=== PATIENT | male | born 1945 | race Caucasian/White ===

== ENCOUNTER → 2019-09-26 11:14 | Outpatient (BNVA) | payer MEDICARE, OTHER, SELFPAY | PROVIDERS: Family Provider Family Medicine; PCP Family Medicine; Visit Provider Family Medicine | DX: E13.9 Other specified diabetes mellitus without complications (principal); I10 Essential (primary) hypertension; I48.91 Unspecified atrial fibrillation; L97.529 Non-pressure chronic ulcer of other part of left foot with unspecified severity | CPT/HCPCS: 80053; 83036; 85025 ==

== ENCOUNTER → 2019-12-19 11:47 | Outpatient (BNVA) | payer MEDICARE, OTHER, SELFPAY | PROVIDERS: Family Provider Family Medicine; PCP Family Medicine; Visit Provider Family Medicine | DX: D09.9 Carcinoma in situ, unspecified (principal) | CPT/HCPCS: 88304 ==

== ENCOUNTER → 2020-02-08 11:37 | Outpatient (BNVA) | payer MEDICARE, OTHER, SELFPAY | PROVIDERS: Family Provider Family Medicine; PCP Family Medicine; Visit Provider Family Medicine | DX: E13.9 Other specified diabetes mellitus without complications (principal); K59.01 Slow transit constipation; I87.2 Venous insufficiency (chronic) (peripheral); I48.19 Other persistent atrial fibrillation; I10 Essential (primary) hypertension | CPT/HCPCS: 80053; 83036; 85025 ==

== ENCOUNTER 2020-05-27 20:35 | Inpatient (IN) | payer MEDICARE, OTHER, SELFPAY ==
[2020-05-27] VITALS (12 sets, daily range): BP systolic 105–151; BP diastolic 59–90; PULSE 110–134; RESP 16–21; TEMP 36.9; O2SAT 93–100; BMI 33.9
--- NOTE | 2020-05-27 20:45 | CTR_ITS ---
PROCEDURE INFORMATION: Exam: CT Head Without Contrast Exam date and time: 05/27/2020 10:12 PM Age: 74 years old Clinical indication: Injury or trauma; Fall; Blunt trauma (contusions or hematomas); Additional info: Fall/xarelto TECHNIQUE: Imaging protocol: Computed tomography of the head without contrast. Radiation optimization: All CT scans at this facility use at least one of these dose optimization techniques: automated exposure control; mA and/or kV adjustment per patient size (includes targeted exams where dose is matched to clinical indication); or iterative reconstruction. COMPARISON: No relevant prior studies available. RADIATION DOSE METRICS: Total DLP (mGy-cm): 909.37 FINDINGS: Brain: Moderate diffuse white matter disease likely reflecting chronic microvascular ischemic changes. Cerebral ventricles: No ventriculomegaly. Bones/joints: Unremarkable. No acute fracture. Paranasal sinuses: Visualized sinuses are unremarkable. No fluid levels. Mastoid air cells: Visualized mastoid air cells are well aerated. Soft tissues: Unremarkable. CT/CT head wo con* [id number] IMPRESSION: Negative for intracranial hemorrhage or mass effect. Radiation Dose CTDIVOL = (mGy): DLP = 909.37 (mGy-cm)
--- NOTE | 2020-05-27 20:45 | XRR_ITS ---
PROCEDURE INFORMATION: Exam: XR Chest Exam date and time: 05/27/2020 9:01 PM Age: 74 years old Clinical indication: Shortness of breath; Additional info: Reduced breath sounds TECHNIQUE: Imaging protocol: XR of the chest Views: 1 view. COMPARISON: No relevant prior studies available. FINDINGS: Lungs: Pulmonary vascular congestion. Bibasilar atelectasis. Pleural spaces: Unremarkable. No pleural effusion. No pneumothorax. Heart/Mediastinum: Cardiomegaly. Bones/joints: Unremarkable. XR/XR chest 1V portable [id number] IMPRESSION: 1. Cardiomegaly. 2. Pulmonary vascular congestion. 3. Bibasilar atelectasis.
--- NOTE | 2020-05-27 20:50 | ECG_ITS ---
[facility] Test Date: 2020-05-27 Pat Name: Elia Parnell Department: Room: Gender: Male [employer]: : 1945 Requested By: Andrew Fajardo Order Number: [id number] Satnam MD: JOSIAH VITALE Measurements Intervals [place] Rate: 136 P: [place]: QRS: 63 QRSD: 82 T: 23 QT: 326 QTc: 492 Interpretive Statements ATRIAL FIBRILLATION WITH RAPID VENTRICULAR RESPONSE NONSPECIFIC ST & T-WAVE ABNORMALITY ABNORMAL RHYTHM ECG No previous ECG available for comparison Electronically Signed On 05-28-2020 19:59:48 COMB CAPPER by JOSIAH VITALE [id number]
--- NOTE | 2020-05-27 20:51 | CTR_ITS ---
PROCEDURE INFORMATION: Exam: CT Chest With Contrast; Diagnostic Exam date and time: 05/27/2020 10:12 PM Age: 74 years old Clinical indication: Injury or trauma; Fall; Generalized; Blunt trauma (contusions or hematomas); Additional info: Fall/ 3 days down. Chest bruising. Xarelto TECHNIQUE: Imaging protocol: Diagnostic computed tomography of the chest with contrast. Radiation optimization: All CT scans at this facility use at least one of these dose optimization techniques: automated exposure control; mA and/or kV adjustment per patient size (includes targeted exams where dose is matched to clinical indication); or iterative reconstruction. Contrast material: OMNI 300; Contrast volume: 95 ml; Contrast route: INTRAVENOUS (IV); COMPARISON: CR XR chest 1V portable [id number] 05/27/2020 9:06 PM RADIATION DOSE METRICS: Total DLP (mGy-cm): 2615.26 FINDINGS: Lungs: Unremarkable. No consolidation. No masses. Pleural spaces: Unremarkable. No pneumothorax. No pleural effusion. Heart: Coronary artery atherosclerotic calcifications. Aorta: Unremarkable. No aortic aneurysm. Lymph nodes: Unremarkable. No enlarged lymph nodes. Bones/joints: Unremarkable. No acute fracture. Soft tissues: Unremarkable. IMPRESSION: Negative for traumatic injury to the chest PROCEDURE INFORMATION: Exam: CT Abdomen And Pelvis With Contrast Exam date and time: 05/27/2020 10:12 PM Age: 74 years old Clinical indication: Injury or trauma; Fall; Generalized; Blunt trauma (contusions or hematomas); Additional info: Fall/ 3 days down. Chest bruising. Xarelto TECHNIQUE: Imaging protocol: Computed tomography of the abdomen and pelvis with contrast. Radiation optimization: All CT scans at this facility use at least one of these dose optimization techniques: automated exposure control; mA and/or kV adjustment per patient size (includes targeted exams where dose is matched to clinical indication); or iterative reconstruction. Contrast material: OMNI 300; Contrast volume: 95 ml; Contrast route: INTRAVENOUS (IV); COMPARISON: CR XR chest 1V portable [id number] 05/27/2020 9:06 PM RADIATION DOSE METRICS: Total DLP (mGy-cm): 2615.26 FINDINGS: Liver: Normal. No mass. Gallbladder and bile ducts: Normal. No calcified stones. No ductal dilation. Pancreas: Normal. No ductal dilation. Spleen: Normal. No splenomegaly. Adrenal glands: Normal. No mass. Kidneys and ureters: Several right kidney benign cysts, negative for follow up. Right kidney nonobstructing renal calyceal stone. Stomach and bowel: Unremarkable. No obstruction. No mucosal thickening. Appendix: No evidence of appendicitis. Intraperitoneal space: Unremarkable. No free air. No significant fluid collection. Vasculature: Unremarkable. No abdominal aortic aneurysm. Lymph nodes: Unremarkable. No enlarged lymph nodes. Urinary bladder: Unremarkable as visualized. Reproductive: Unremarkable as visualized. Bones/joints: Unremarkable. No acute fracture. Soft tissues: Unremarkable. CT/CT chest abd pel w con* IMPRESSION: 1. Negative for traumatic injury to the abdomen or pelvis. 2. Several right kidney benign cysts, negative for follow up. 3. Right kidney nonobstructing renal calyceal stone. COMMENTS: Consistent with the [place] [employer] [employer]'s Incidental Findings Committee white paper (J Am Jordan Radiol 2018): Any incidental renal lesion less than 1 cm or classified as too small to characterize, or any incidental cystic renal lesion characterized as simple-appearing, is likely benign. No follow-up imaging is recommended for these lesions per consensus recommendations based on imaging criteria. Radiation Dose CTDIVOL = (mGy): DLP = 2615.26~2615.26 (mGy-cm)
--- NOTE | 2020-05-27 20:51 | XRR_ITS ---
PROCEDURE INFORMATION: Exam: XR Left Knee Exam date and time: 05/27/2020 9:01 PM Age: 74 years old Clinical indication: Pain; Knee; Left; Additional info: Fall/pain TECHNIQUE: Imaging protocol: XR Left knee. Views: 3 views. COMPARISON: No relevant prior studies available. FINDINGS: Bones/joints: Moderate tricompartmental osteoarthritis of the knee. Soft tissues: Normal. Vasculature: Scattered vascular calcifications. XR/XR knee LT 3V* [id number] IMPRESSION: 1. Negative for fracture or dislocation 2. Scattered vascular calcifications. 3. Moderate tricompartmental osteoarthritis of the knee.
--- NOTE | 2020-05-27 20:51 | XRR_ITS ---
PROCEDURE INFORMATION: Exam: XR Right Knee Exam date and time: 05/27/2020 9:20 PM Age: 74 years old Clinical indication: Pain; Knee; Right; Additional info: Fall TECHNIQUE: Imaging protocol: XR Right knee. Views: 3 views. COMPARISON: No relevant prior studies available. FINDINGS: Bones/joints: Severe tricompartmental osteoarthritis of the knee. Soft tissues: Normal. Vasculature: Scattered vascular calcifications. XR/XR knee RT 3V* [id number] IMPRESSION: 1. Negative for fracture or dislocation. 2. Scattered vascular calcifications. 3. Severe tricompartmental osteoarthritis of the knee.
--- NOTE | 2020-05-27 20:54 | CTR_ITS ---
PROCEDURE INFORMATION: Exam: CT Cervical Spine Without Contrast Exam date and time: 05/27/2020 10:12 PM Age: 74 years old Clinical indication: Injury or trauma; Fall; Blunt trauma; Additional info: Fall/xarelto TECHNIQUE: Imaging protocol: Computed tomography images of the cervical spine without contrast. Radiation optimization: All CT scans at this facility use at least one of these dose optimization techniques: automated exposure control; mA and/or kV adjustment per patient size (includes targeted exams where dose is matched to clinical indication); or iterative reconstruction. COMPARISON: No relevant prior studies available. RADIATION DOSE METRICS: Total DLP (mGy-cm): 880.73 FINDINGS: Vertebrae: No acute fracture. Normal alignment. C2-C3: No significant disc protrusion. No severe spinal canal stenosis. No significant neural foraminal narrowing. C3-C4: No significant disc protrusion. No severe spinal canal stenosis. No significant neural foraminal narrowing. C4-C5: No significant disc protrusion. No severe spinal canal stenosis. No significant neural foraminal narrowing. C5-C6: No significant disc protrusion. No severe spinal canal stenosis. No significant neural foraminal narrowing. C6-C7: No significant disc protrusion. No severe spinal canal stenosis. No significant neural foraminal narrowing. C7-T1: No significant disc protrusion. No severe spinal canal stenosis. No significant neural foraminal narrowing. Soft tissues: Unremarkable. Lungs: Lung apices are normal. Other findings: Degenerative disc space narrowing throughout the cervical spine. CT/CT cervical spin wo con* [id number] IMPRESSION: 1. Negative for fracture or dislocation. 2. Degenerative disc space narrowing throughout the cervical spine. Radiation Dose CTDIVOL = (mGy): DLP = 880.73 (mGy-cm)
--- NOTE | 2020-05-27 21:03 | W.ED.FALL ---
HPI - Fall General: Chief Complaint: Fall Stated Complaint: FALL/ AFIB W/RVR Time Seen by Provider: 05/27/20 20:36 History of Present Illness: HPI Narrative: The patient is a 74-year-old male with past medical history diabetes and atrial fibrillation on Xarelto. He comes to the ER after he fell 2 days ago in his basement rolling down the stairs. He has bruising to his chest, belly, and complains of severe hip and pelvic pain bilaterally. He was unable to get up off the ground and yelled for help but no one answered. Finally today someone came to check on him after 2 to 3 days of being on the ground and called an ambulance. He has eaten or drank nothing and was in A. fib RVR with a rate of 180 noted by ambulance. They gave him 30 mg diltiazem with noted hypotension and reduction in rate. On arrival to the ER his rate is in the 130s to 120s with a blood pressure of 129/59. Associated symptoms-after fall: Reports abdominal pain, chest pain, headache(s) and neck pain; Denies confusion or difficulty walking Review of Systems General: Reports: 10 or more systems reviewed and unremarkable except in HPI and below Const: Denies: fatigue Eyes: Denies: change in vision, blurry vision or eye redness ENMT: Denies: throat pain, swelling of lips/tongue, ear or mastoid pain or nasal congestion Card: Reports: chest pain; Denies: palpitations, irregular heart rhythm, edema, dyspnea on exertion or orthopnea Resp: Denies: dyspnea, productive cough or non-productive cough GI: Reports: abdominal pain; Denies: diarrhea or GI cramping : Denies: flank pain, urinary frequency or urinary urgency Musc: Reports: neck pain, back pain, extremity pain, joint pain and muscle weakness; Denies: joint redness or limited range of motion Skin/Breast: Denies: rash, pruritus, erythema, skin pain or skin tenderness Neuro: Reports: headache(s); Denies: numbness in extremities, weakness in extremities, sensory changes, difficulty walking, dizziness, confusion or Slurred speech present Psych: Denies: anxiety or depression Endo: Denies: polyuria All/Imm: Denies: urticaria, throat swelling or tongue swelling PFS ED PFSH: Medical History (Updated 05/27/20 @ 23:48 by Andrew Fajardo MD) Anticoagulation adequate with anticoagulant therapy Anxiety and depression Arthritis Atrial fibrillation Diabetes Diabetes 1.5, managed as type 2 Enrolled in chronic care management Essential hypertension Hx of melanoma of skin Hypotension Obesity Plantar ulcer of left foot Rhabdomyolysis Squamous cell carcinoma, face Venous insufficiency Family History Mother Diabetes CAD (coronary artery disease) Social History Smoking and tobacco status: never smoked Alcohol intake: never Marital status: Physical Exam Narrative: EXAM NARRATIVE: The patient is in A. fib with RVR rate in the 130s. He has multiple contusions across his chest with some bruising as well and abrasions scattered on the chest and abdomen. He is tender in those areas. He also has abrasions and bruises to bilateral kneecaps. Smells of urine and feces. Const: COMMON NORMALS: patient oriented x3, no limitations, alert and well nourished GENERAL APPEARANCE: cooperative, well developed, in distress, anxious and ill appearing NUTRITIONAL APPEARANCE: obese ORIENTATION/CONSCIOUSNESS: Yes awake, Yes oriented to person, Yes oriented to place and Yes oriented to time HENMT: COMMON NORMALS: normocephalic, external ears normal and Normal external nose present HEAD & SCALP: normal to inspection and normocephalic NOSE: Normal external nose present EXTERNAL EAR: Yes external ears normal MOUTH: Normal oral and palatal mucosa present THROAT: posterior oropharynx normal Eye: COMMON NORMALS: Equal, round and reactive pupils present and EOMs intact bilaterally GENERAL EYE: appearance normal, both eyes and all related structures PUPIL: Yes Equal, round and reactive pupils present Neck/C-Spine: COMMON NORMALS: full ROM, no lymphadenopathy, no meningeal signs and no JVD GENERAL: Yes normal visual inspection Lymph: LYMPHATIC: no lymphadenopathy noted Chest: OTHER: Scattered contusions, bruises, and abrasions across the chest wall. He is tender in those areas. Resp: COMMON NORMALS: normal respiratory effort, No retractions, No use of accessory muscles, clear to auscultation bilaterally and percussion normal EFFORT & INSPECTION: Yes able to speak in complete sentences AUSCULTATION: clear to auscultation bilaterally PERCUSSION: percussion normal Cardio: COMMON NORMALS: no JVD, S1 normal heart sound present, S2 normal heart sound present and Peripheral pulses 2+ throughout RATE: tachycardic RHYTHM: abnormal rhythm irregularly irregular HEART SOUNDS: S1 normal heart sound present and S2 normal heart sound present PERIPHERAL PULSES: Peripheral pulses 2+ throughout OTHER: A. fib RVR with rate in the 130s. GI: COMMON NORMALS: Soft to palpation and no masses INSPECTION: Yes normal to inspection PALPATION: Yes Soft to palpation OTHER: Scattered contusions, bruising, and abrasions to the abdomen with associated tenderness. : COMMON NORMALS: Yes no CVA tenderness BLADDER/KIDNEY EXAM: Yes no CVA tenderness Back/Pelvis: COMMON NORMALS: no CVA tenderness, thoracic and lumbar spine normal to inspection, no thoracic nor lumbar tenderness and thoraco-lumbar ROM normal Extremity: COMMON NORMALS: normal to inspection, full ROM, capillary refill normal, no joint enlargement and no pedal edema NARRATIVE EXTREMITY EXAM: Bilateral knees with contusions, and abrasions over the patellas bilaterally. Associated tenderness. Major ligaments intact. GENERAL: Yes normal exam except as noted Neuro: COMMON NORMALS: patient oriented x3, CN's II-XII intact bilaterally, moves all extremities, no focal motor deficits, no sensory deficits noted and gait normal SENSORIUM/ORIENTATION: Yes alert, Yes oriented to person, Yes oriented to place and Yes oriented to time MENINGEAL SIGNS: Yes no meningeal signs OTHER: He is generally weak in all extremities. No focal weakness. Psych: COMMON NORMALS: mental status grossly normal, Normal thought process present, cooperative, normal affect and speech normal APPEARANCE: Yes unkempt ATTITUDE: Yes calm SPEECH: Yes normal speech MOOD & AFFECT: Yes anxious THOUGHT PROCESS: Normal thought process present Skin: COMMON NORMALS: no rashes or lesions noted GENERAL SKIN EXAM: no rashes or lesions noted Course Vital Signs: Vital signs: Vital Signs Temperature 98.4 F 05/27/20 20:40 Pulse Rate 126 H 05/27/20 23:00 Respiratory Rate 19 H 05/27/20 23:00 Blood Pressure 137/90 05/27/20 23:00 Pulse Oximetry 94 05/27/20 23:00 MDM - Fall MDM Narrative: Medical decision making narrative: The patient came to the ER in A. fib RVR after a fall and not eating or drinking for 2 to 3 days. He was given a 30 mg IV bolus by EMS prior to arrival his rate was in the 160s. On arrival it is the in the 130s with a normal blood pressure. He was given IV fluids and started on a diltiazem drip. Imaging was grossly negative for acute fractures or hemorrhages. He continued to have heart rate in the 1 teens to 120s and was admitted to the ICU. Discussed with Dr. Arellano who accepts his care. Lab Data: Labs: Lab Results 05/27/20 05/27/20 05/27/20 Range/Units 21:08 21:08 21:08 WBC 9.4 (4.0-10.0) 10^3/ uL RBC 4.70 (4.1-5.3) 10^6/u L Hgb 14.4 (11.7-16.6) g/dL Hct 42.8 (42.0-52.0) % MCV 91.1 (80-94) fL MCH 30.6 (28.0-34.0) pg MCHC 33.6 (30.0-36.0) g/dL RDW 13.2 (12.1-15.1) % Plt Count 182 (130-400) 10^3/c mm MPV 10.4 (7.4-10.4) fL Neut % (Auto) 81.0 % Lymph % (Auto) 9.1 % [place] % (Auto) 9.3 % Eos % (Auto) 0.1 % Baso % (Auto) 0.2 % Neut # (Auto) 7.63 (1.8-7.7) 10^3/u L Lymph # (Auto) 0.9 (0.8-4.8) 10^3/u L [place] # (Auto) 0.9 (0.2-0.9) 10^3/u L Eos # (Auto) 0.0 (0.0-0.8) 10^3/u L Baso # (Auto) 0.0 (0.0-0.1) 10^3/u L Nucleated RBC % (a uto) 0 % Nucleated RBCs # 0.0 /100WBC Sodium 139 (136-145) mmol/L Potassium 4.1 (3.5-5.1) mmol/L Chloride 102 (98-107) mmol/L Carbon Dioxide 22 (22-29) mmol/L Anion Gap 19.1 H (5-19) BUN 24 H (8-23) mg/dL Creatinine 0.6 L (0.7-1.2) mg/dL GFR Calculation Not Reportable Glucose 133 H (65-115) mg/dL Calculated Osmolal ity 294 (285-295) mOsm/k g Lactate 2.6 H (0.5-2.2) mmol/L Calcium 8.7 (8.5-10.5) mg/dL Total Bilirubin 5.0 H (0.15-1.2) mg/dL AST 185 H (0-40) U/L ALT 75 H (0-41) U/L Alkaline Phosphata se 56 (40-130) IU/L Troponin T Baselin e (0-15) ng/L NT-Pro-B Natriuret Pep 657 H (0-450) pg/mL Total Protein 6.8 (6.6-8.7) g/dL Albumin 3.3 L (3.5-5.2) g/dL Globulin 3.5 (1.3-4.6) g/dL 05/27/20 Range/Units 21:08 WBC (4.0-10.0) 10^3/ uL RBC (4.1-5.3) 10^6/u L Hgb (11.7-16.6) g/dL Hct (42.0-52.0) % MCV (80-94) fL MCH (28.0-34.0) pg MCHC (30.0-36.0) g/dL RDW (12.1-15.1) % Plt Count (130-400) 10^3/c mm MPV (7.4-10.4) fL Neut % (Auto) % Lymph % (Auto) % [place] % (Auto) % Eos % (Auto) % Baso % (Auto) % Neut # (Auto) (1.8-7.7) 10^3/u L Lymph # (Auto) (0.8-4.8) 10^3/u L [place] # (Auto) (0.2-0.9) 10^3/u L Eos # (Auto) (0.0-0.8) 10^3/u L Baso # (Auto) (0.0-0.1) 10^3/u L Nucleated RBC % (a uto) % Nucleated RBCs # /100WBC Sodium (136-145) mmol/L Potassium (3.5-5.1) mmol/L Chloride (98-107) mmol/L Carbon Dioxide (22-29) mmol/L Anion Gap (5-19) BUN (8-23) mg/dL Creatinine (0.7-1.2) mg/dL GFR Calculation Glucose (65-115) mg/dL Calculated Osmolal ity (285-295) mOsm/k g Lactate (0.5-2.2) mmol/L Calcium (8.5-10.5) mg/dL Total Bilirubin (0.15-1.2) mg/dL AST (0-40) U/L ALT (0-41) U/L Alkaline Phosphata se (40-130) IU/L Troponin T Baselin e 31 H (0-15) ng/L NT-Pro-B Natriuret Pep (0-450) pg/mL Total Protein (6.6-8.7) g/dL Albumin (3.5-5.2) g/dL Globulin (1.3-4.6) g/dL Discharge Plan Discharge Patient Disposition: Admitted As Inpatient Clinical Impression: Atrial fibrillation with rapid ventricular response, Acute dehydration, General weakness Condition: Stable Coding Level of Care Code ED Tax Attorney for Loretta Jason
[2020-05-27 21:31] LABS: Basophils % 0.2 %; Eosinophils % 0.1 %; Hematocrit 42.8 % (42.0-52.0); Hemoglobin 14.4 g/dL (11.7-16.6); Lymphocytes # 0.9 10^3/uL (0.8-4.8); Lymphocytes % 9.1 %; Mean Corpuscular HGB Conc 33.6 g/dL (30.0-36.0); Mean Corpuscular Hemoglobin 30.6 pg (28.0-34.0); Mean Corpuscular Volume 91.1 fL (80-94); Mean Platelet Volume 10.4 fL (7.4-10.4); Monocytes # 0.9 10^3/uL (0.2-0.9); Monocytes % 9.3 %; Neutrophils # 7.63 10^3/uL (1.8-7.7); Nucleated Red Blood Cells % 0 %; Platelet Count 182 10^3/cmm (130-400); Red Cell Distribution Width 13.2 % (12.1-15.1); White Blood Count 9.4 10^3/uL (4.0-10.0)
[2020-05-27] MEDS: sodium chloride 0.9% 1,000 ML 999 ML IV (21:37)
[2020-05-27 22:02] LABS: Troponin(5th) Baseline 31 ng/L (0-15)
[2020-05-27 22:10] LABS: Alanine Aminotransferase 75 U/L (0-41); Albumin Level 3.3 g/dL (3.5-5.2); Alkaline Phosphatase 56 IU/L (40-130); Anion Gap 19.1 (5-19); Aspartate Amino Transferase 185 U/L (0-40); Blood Urea Nitrogen 24 mg/dL (8-23); Calcium 8.7 mg/dL (8.5-10.5); Carbon Dioxide 22 mmol/L (22-29); Chloride 102 mmol/L (98-107); Globulin 3.5 g/dL (1.3-4.6); Glucose 133 mg/dL (65-115); NT Pro B Type Natriuretic Pept 657 pg/mL (0-450); Osmolality Calculated 294 mOsm/kg (285-295); Potassium 4.1 mmol/L (3.5-5.1); Sodium 139 mmol/L (136-145); Total Protein 6.8 g/dL (6.6-8.7)
[2020-05-27 22:19] LABS: Lactate (Lactic Acid level) 2.6 mmol/L (0.5-2.2)
[2020-05-27] MEDS: iohexol 300 mg/mL 100 mL Btl IV (22:30)
--- NOTE | 2020-05-27 22:51 | ECG_ITS ---
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: : 1945 Requested By: Andrew Fajardo Order Number: [id number] Satnam MD: JOSIAH VITALE Measurements Intervals [place] Rate: 132 P: [place]: QRS: 63 QRSD: 85 T: 0 QT: 303 QTc: 449 Interpretive Statements ATRIAL FIBRILLATION WITH RAPID VENTRICULAR RESPONSE ST DEVIATION AND MODERATE T-WAVE ABNORMALITY, CONSIDER LATERAL ISCHEMIA [-0.1+ mV T WAVE IN I/aVL/V5/V6] Compared to ECG 05/27/2020 21:00:00 Possible ischemia now present T-wave abnormality still present Electronically Signed On 05-28-2020 20:03:07 RN MATERNITY by JOSIAH VITALE [email or web address] [id number]
--- NOTE | 2020-05-27 23:40 | P.HP_ITS ---
Providers/Chief Complaint Primary Care Provider: Tayo Kirkland MD Chief Complaint: FALL/ AFIB W/RVR History of Present Illness Elia Parnell is a 74 year old male who has history of afib, chronic anticoagulation, came in today after falling at home. Patient is stating that he went to PCP on Wednesday and slipped from his stairs in his basement on Wednesday and stayed there until Wednesday night, he screamed and yelled but no one could hea r. His friend checked on him tonight and found him on the floor soiled in feces and urine and sent him to the hospital. When EMS arrived his heart rate was in 160s A. fib RVR Cardizem 30 mg IV push was given. In the ER he was started on Cardizem drip for A. fib RVR he was also given 2 L normal saline fluid bolus. He was scanned from head to coccyx, no fractures were identified, normal CBC, lactic 2.6 secondary to dehydration, no signs of sepsis, patient was awake alert oriented x3. Patient did not endorse any chest pain, shortness of breath, orthopnea, PND, fever however he thinks he slipped from his stairs and did not experience any seizure or syncopal event. EKG showing A. fib RVR with slight ST depression V4 V5 otherwise no other infarctive or ischemic changes identified, patient is chest pain-free. No significant delta troponin. I have requested CPK Review of Systems Const: Reports: body aches, fatigue and malaise; Denies: fever(s) or chills Eyes: Denies: change in vision ENMT: Denies: throat pain Card: Reports: chest pain (Laceration around sternum) Resp: Denies: dyspnea GI: Denies: abdominal pain : Denies: flank pain Musc: Denies: neck pain Skin/Breast: Denies: rash Neuro: Reports: confusion; Denies: headache(s) Psych: Denies: anxiety Endo: Denies: polyuria Luis Alberto/Lymph: Denies: easy bruising All/Imm: Denies: urticaria Medications/Allergies Home Medications Medication Instructions Recorded Confirmed Last Taken Type ibuprofen 200 mg tablet 200 mg PO Q6H PRN 04/06/19 04/25/20 Unknown History metformin 500 mg tablet 500 mg PO BID 90 Days #180 tab 05/30/19 04/25/20 Unknown Rx rivaroxaban 20 mg tablet 20 mg PO DAILY #30 tab 10/21/19 04/25/20 Unknown Rx docusate sodium 100 mg capsule 100 mg PO BID #60 cap 02/08/20 04/25/20 Unknown Rx bisoprolol fumarate 5 mg tablet 5 mg PO BID 90 Days #180 tab 03/14/20 04/25/20 Unknown Rx furosemide 40 mg tablet 40 mg PO DAILY 60 Days #60 tab 04/18/20 04/25/20 Unknown Rx Allergies Allergy/AdvReac Type Severity Reaction Status Date / Time Penicillins Allergy Severe ALGY-Bliste Verified 05/27/20 20:54 r PFSH Acute PFSH: Medical History Anticoagulation adequate with anticoagulant therapy Anxiety and depression Arthritis Atrial fibrillation Diabetes Diabetes 1.5, managed as type 2 Enrolled in chronic care management Essential hypertension Hx of melanoma of skin Hypotension Obesity Plantar ulcer of left foot Rhabdomyolysis Squamous cell carcinoma, face Venous insufficiency Surgical History (Updated 05/28/20 @ 00:14 by Kevin Arellano MD) No pertinent past surgical history Family History Mother Diabetes CAD (coronary artery disease) Social History (Updated 05/28/20 @ 00:18 by Kevin Arellano MD) Smoking and tobacco status: light tobacco smoker smokeless tobacco Smokeless tobacco user: chewing tobacco Alcohol intake: never Marital status: Vitals/I&O/Wt Last Vital Signs Temp 98.4 F 05/27/20 20:40 Pulse 126 H 05/27/20 23:00 Resp 19 H 05/27/20 23:00 BP 137/90 05/27/20 23:00 Pulse Ox 94 05/27/20 23:00 Weight last 48 hrs Weight 113.398 kg Physical Exam Narrative: EXAM NARRATIVE: Pleasant elderly male, clinically looks dehydrated Multiple lacerations and bruises all over his body, no active bleeding or hematoma Bruise right frontal head area, bilateral elbows, lower extremities No signs of cyanosis gangrene or ischemia S1, S2 variable A. fib RVR no murmur appreciated No signs of heart failure Abdomen distended, ventral hernia no active pain nontender abdomen, bowel sound present No acute respiratory distress Currently saturating well on room air Appropriate mood and affect Seems to have good insight No active joint swelling however multiple bruises and hyperemia noted on the knee and elbow joints Data : 05/27/20 21:08 05/27/20 21:08 A&P Assessment and plan (1) Atrial fibrillation: A. fib with acute RVR Xarelto, currently on Cardizem drip Patient is denying syncopal event however he is attributing his fall to losing balance on his basement stairs He lives alone since his Status: Acute Qualifiers: Atrial fibrillation type: persistent (not longstanding) Qualified Code(s): I48.19 - Other persistent atrial fibrillation (2) Fall: Mechanical fall Check CPK, no acute fractures Status: Acute (3) Dehydration: He has not been able to eat or drink in last 48 hours, received 2 L normal saline bolus in the ER lactic acidemia is most likely due to dehydration no signs of sepsis, anticipate improvement with fluid resuscitation Status: Acute (4) General weakness: Physical therapy evaluation, check TSH, Status: Acute Additional A&P Information Lives alone Physical therapy evaluation Consistent carb diet with sliding scale DVT prophylaxis not indicated secondary to Xarelto use Goals of care discussed with the patient: Full code His daughter lives in [place], kindly update the family in the morning I have not called her past midnight Attestations Medical Necessity Statement*: Anticipating discharge in less than 48 hours physical therapy evaluation will decide his disposition currently need Cardizem drip and fluid hydration Time Spent in Patient Care: (>than 50% of time spent in counselling and/or direct pt care on unit) . 50mins Coding Level of Care Code Acute Patent Counsel for [facility] Fwd Diagnoses Atrial fibrillation I48.19 Atrial fibrillation type: persistent (not longstanding) Fall W19.XXXA Dehydration E86.0 General weakness R53.1
[2020-05-28] VITALS (150 sets, daily range): BP systolic 97–135; BP diastolic 61–106; PULSE 80–155; RESP 0–29; TEMP 36.7–37; O2SAT 85–97
[2020-05-28 00:03] LABS: Troponin 5 2HR 32.48 ng/L (0-15); Troponin 5 2HR Delta 1.48 ABS# (0-10)
[2020-05-28 00:19] LABS: Creatine Phosphokinase 4409 U/L (39-308)
--- NOTE | 2020-05-28 02:51 | ECG_ITS ---
[facility] Test Date: 2020-05-28 Pat Name: Elia Parnell Department: Room: ICU06 Gender: Male Director Of Customer Acquisition: : 1945 Requested By: Andrew Fajardo Order Number: [id number] Satnam MD: JOSIAH VITALE Measurements Intervals [place] Rate: 118 P: VT: QRS: 48 QRSD: 89 T: -74 QT: 349 QTc: 490 Interpretive Statements ATRIAL FIBRILLATION WITH RAPID VENTRICULAR RESPONSE ST DEVIATION AND MODERATE T-WAVE ABNORMALITY, CONSIDER ANTEROLATERAL ISCHEMIA [-0.1+ mV T WAVE IN V3-V6] ST DEVIATION AND MODERATE T-WAVE ABNORMALITY, CONSIDER INFERIOR ISCHEMIA [-0.1+ mV T WAVE IN II/aVF] Compared to ECG 05/27/2020 22:50:26 No significant changes Electronically Signed On 05-28-2020 20:01:35 BUILDING SUPERINTENDENT by JOSIAH VITALE [id number]
--- NOTE | 2020-05-28 02:55 | PC.NURSE ---
Patient arrived to ICU from ED at 0245.
[2020-05-28] MEDS: sodium chloride 0.9% 1,000 ML 75 ML IV (02:59)
[2020-05-28 03:32] LABS: Magnesium 2.1 mg/dL (1.7-2.3)
[2020-05-28 03:36] LABS: Troponin 5 6HR 38.44 ng/L (0-15); Troponin 5 6HR Delta 7.44 ng/L (0-12)
[2020-05-28 03:44] LABS: Anion Gap 16.1 (5-19); Blood Urea Nitrogen 25 mg/dL (8-23); Calcium 8.4 mg/dL (8.5-10.5); Carbon Dioxide 25 mmol/L (22-29); Chloride 102 mmol/L (98-107); Glucose 120 mg/dL (65-115); Osmolality Calculated 294 mOsm/kg (285-295); Potassium 4.1 mmol/L (3.5-5.1); Sodium 139 mmol/L (136-145); Thyroid Stimulating Hormone 5.18 uIU/mL (0.27-4.20)
[2020-05-28 07:31] LABS: Glucose Point of Care 125 mg/dL (70-110)
[2020-05-28] MEDS: rivaroxaban 10 mg Tablet 20 MG PO (08:59)
[2020-05-28] MEDS: docusate sodium 100 mg Capsule PO ×2 (08:59→17:09)
--- NOTE | 2020-05-28 09:39 | P.PN_ITS ---
Subjective Subjective: Interval history: Patient was seen and examined this morning. He was complaining of pain at the injury site in both lower extremity.He do told that he had a mechanical fall and was left unattended for close to 2 days. Currently in the morning he is not complaining of any chest pain, sob,nausea,vomiting,cough. He continues to be in A.fib with RVR and on cardizem drip. His other vitals and labs have been reviewed. Medications: Reviewed: Yes Vitals/I&O/Wt Last Vital Signs Temp 98.0 F 05/28/20 02:50 Pulse 105 H 05/28/20 06:10 Resp 21 H 05/28/20 06:10 BP 99/70 05/28/20 06:10 Pulse Ox 91 05/28/20 06:10 05/27/20 05/28/20 05/28/20 22:59 06:59 14:59 Intake Total 1219.25 / 1219.25 Output Total 0 / 0 Balance 1219.25 / 1219.25 Weight last 48 hrs Weight 114.305 kg Weight 114.362 kg Weight 113.398 kg Physical Exam Const: COMMON NORMALS: patient oriented x3 HENMT: COMMON NORMALS: normocephalic and atraumatic HEAD & SCALP: normocephalic and atraumatic Chest: CHEST: Yes Symmetrical chest wall rise Resp: COMMON NORMALS: normal respiratory effort and clear to auscultation bilaterally EFFORT & INSPECTION: Yes symmetric chest movement AUSCUL TATION: clear to auscultation bilaterally Cardio: OTHER: S1 S2 is of Variable Intensity,irregularly irregular rhythm. NO MRG GI: COMMON NORMALS: Normal to inspection, nondistended, normoactive bowel sounds present, Soft to palpation, non-tender, No hepatosplenomegaly present and no masses AUSCULTATION: Yes normoactive bowel sounds PALPATION: Yes Soft to palpation and Yes No hepatosplenomegaly present RECTAL EXAM: Yes deferred Extremity: COMMON NORMALS: no clubbing, cyanosis or edema and no pedal edema Neuro: COMMON NORMALS: patient oriented x3 Data : 05/27/20 21:08 05/28/20 02:52 A&P Assessment and plan (1) Atrial fibrillation: A. fib with acute RVR Currently on Cardizem drip Cardizem 30 mg po q6 h Daily Xarelto 20 mg po daily Status: Acute Qualifiers: Atrial fibrillation type: persistent (not longstanding) Qualified Code(s): I48.19 - Other persistent atrial fibrillation (2) Fall: Mechanical fall no acute fractures Status: Acute (3) Elevated troponin: Likely TYPE II M.I 2/2 to demand ischemia, from A. fib with RVR. Currently he is denying any chest pain shortness of breath. 2D echo Status: Acute (4) Elevated CPK: Likely 2/2 to dehydration and fall. CPK : 4409. Continue IV hydration NS @150CC/H Trend CPK Monitor kidney function Status: Acute (5) Dehydration: He has not been able to eat or drink in last 48 hours, received 2 L normal saline bolus in the ER lactic acidemia is most likely due to dehydration no signs of sepsis, anticipate improvement with fluid resuscitation Status: Acute (6) General weakness: Physical therapy evaluation Status: Acute (7) Diabetes: LDSSI FSG HbA1c Status: Acute Additional A&P Information DVT: On Xarelto Code Status: Full code Disposition : Lives alone.Will return Home. His daughter lives in [place] Attestations Medical Necessity Statement*: Patient needs to be in hospital for the management of A.Fib with RVR, elevated CPK, Elevated troponin. Coding Level of Care Code Acute Woodwork Salvage Inspector for [facility] Fwd Exam Detailed Diagnoses Atrial fibrillation I48.19 Atrial fibrillation type: persistent (not longstanding) Fall W19.XXXA Elevated troponin R77.8 Elevated CPK R74.8 Dehydration E86.0 General weakness R53.1 Diabetes E11.9
--- NOTE | 2020-05-28 09:40 | PC.CHAP ---
Pastoral Care Encounter/Spiritual Assessment Type of Contact [] Declined rn urgent care visit [] Patient/Family/Request visit [] Outpatient visit [] Follow-up visit [] Physician referral [] Code/Alert [x] Routine visit [] Staff referral [] Actively dying [] Patient sleeping [] Family support [] [] Out of room [] Palliative care [] [] Receiving care in room [] Pre-surgical visit [] Trauma [] Long length of stay [x] ICU visit [] Other: Relational/Emotional Strength [] Patient feels connected with others/family/visitors/staff [] Distress [] Loneliness/isolation [] Abandonment Spirituality of Patient [x] Person of Grisel [] Attends Baptism of their Grisel [] Believes in Prayer [] Reads Bible or Quaker materials [] There are Spiritual issues to be addressed Digital X Ray Service Engineer Interventions [x] Prayer [x] Active listening [x] Non-anxious presence [x] Spiritual/emotional support [] Crisis/trauma care [] Spiritual counseling [] Bereavement support [] Provided bereavement packet [] Provided Bible/devotional materials [] Provided toy/stuffed animal, coloring book to patient or family member [] Provided Communion [] Anointing/Shelby [] Salvation [x] Completed spiritual assessment [] Other: Impact on Illness or Injury [] Angry [] Fearful [] Anxious [] Often cries [] Exhaustion [] Unable to work [] Unable to attend yarsani [] Unable to walk/stand [] Unable to read [] Unable to drive [] Unable to eat/drink [] Unable to sleep [] Unable to be with family [] Patient intubated [] Other: Summary patient a little anxious after speaking to doctor... fall may has possibly caused an issue with heart... patient missed his heart visit (6 mo) Time spent with patient 10 min
--- NOTE | 2020-05-28 10:13 | PC.NURSE ---
New bag of cardizem was hung at 0800 running at 10 ml/hr and not started in MAY until 1009.
[2020-05-28 11:46] LABS: Glucose Point of Care 179 mg/dL (70-110)
--- NOTE | 2020-05-28 15:11 | PC.NURSE ---
Patient was transferred to CSU at 1500. All of patients belongings were taken to CSU and placed in the closet.
[2020-05-28] MEDS: dilTIAZem 30 mg Tablet PO ×2 (15:49→20:32)
[2020-05-28] MEDS: sodium chloride 0.9% 1,000 ML 150 ML IV (16:23)
[2020-05-28 16:44] LABS: Glucose Point of Care 156 mg/dL (70-110)
[2020-05-28 20:40] LABS: Glucose Point of Care 180 mg/dL (70-110)
--- NOTE | 2020-05-28 22:17 | PM.CONSULT ---
Providers/Reason For Consult Consulting Physican/Specialty*: Ham Sifuentes MD/Cardiology Reason for Consult*: Afib with RVR Requesting Physcian: Teddy Joyner MD Attending Physician: Teddy Joyner MD Primary Care Provider: Tayo Kirkland MD History of Present Illness History of Present Illness 74 year old male who has history of afib, chronic anticoagulation came to hospital after he had a fall at home and was found about 1-2 days later by his friend. He says he slipped and fell in his basement, called for help but no one could hear him. When EMS arrived, he was in afib with RVR with heart rates in 160s. His CPK was also markedly elevated. Patient denies any complaints of chest pain or shortness of breath. His heart rate is still elevated and is in 100-110s. Currently on cardizem gtt. Review of Systems Const: Reports: body aches, fatigue and malaise; Denies: fever(s) or chills Eyes: Denies: change in vision ENMT: Denies: throat pain Card: Reports: chest pain (Laceration around sternum) Resp: Denies: dyspnea GI: Denies: abdominal pain : Denies: flank pain Musc: Denies: neck pain Skin/Breast: Denies: rash Neuro: Reports: confusion; Denies: headache(s) Psych: Denies: anxiety Endo: Denies: polyuria Luis Alberto/Lymph: Denies: easy bruising All/Imm: Denies: urticaria Meds/Allergies Home Medications and Allergies Home Medications Medication Instructions Recorded Confirmed Last Taken Type ibuprofen 200 mg tablet 200 mg PO Q6H PRN 04/06/19 05/28/20 Unknown History metformin 500 mg tablet 500 mg PO BID 90 Days #180 tab 05/30/19 05/28/20 Unknown Rx rivaroxaban 20 mg tablet 20 mg PO DAILY #30 tab 10/21/19 05/28/20 05/28/20 Rx docusate sodium 100 mg capsule 100 mg PO BID #60 cap 02/08/20 05/28/20 05/28/20 Rx bisoprolol fumarate 5 mg tablet 5 mg PO BID 90 Days #180 tab 03/14/20 05/28/20 Unknown Rx furosemide 40 mg tablet 40 mg PO DAILY 60 Days #60 tab 04/18/20 05/28/20 Unknown Rx Allergies Allergy/AdvReac Type Severity Reaction Status Date / Time Penicillins Allergy Severe ALGY-Bliste Verified 05/27/20 20:54 r Current Medications Current Medications Generic Name Dose Route Start Last Admin Trade Name Shlomoq PRN Reason Stop Dose Admin Diltiazem HCl 30 mg 05/28/20 14:00 05/28/20 20:32 Diltiazem 30 Mg Tablet PO 30 mg Q6H KRYSTINA Administration Docusate Sodium 100 mg 05/28/20 09:00 05/28/20 17:09 Docusate Sodium 100 Mg Capsule PO 100 mg BID KRYSTINA Administration Diltiazem HCl 125 mg/ Sodium 125 mls @ 5 mls/hr 05/27/20 21:15 05/28/20 20:53 Chloride IV Infused .Q24H KRYSTINA Infusion 5 MG/HR Sodium Chloride 1,000 mls @ 150 mls/hr 05/28/20 02:42 05/28/20 16:23 Sodium Chloride 0.9% IV 150 mls/hr .Q6H40M KRYSTINA Administration Insulin Aspart 0 unit 05/28/20 08:00 05/28/20 20:51 Insulin Aspart 100 Unit/1 Ml SUBCUT 4 unit WM&BEDTIME KRYSTINA Administration Protocol Rivaroxaban 20 mg 05/28/20 09:00 05/28/20 08:59 Rivaroxaban 10 Mg Tablet PO 20 mg DAILY KRYSTINA Administration PFSH Acute PFSH: Medical History Anticoagulation adequate with anticoagulant therapy Anxiety and depression Arthritis Atrial fibrillation Diabetes Diabetes 1.5, managed as type 2 Enrolled in chronic care management Essential hypertension Hx of melanoma of skin Hypotension Obesity Plantar ulcer of left foot Rhabdomyolysis Squamous cell carcinoma, face Venous insufficiency Surgical History No pertinent past surgical history Family History Mother Diabetes CAD (coronary artery disease) Social History Smoking and tobacco status: light tobacco smoker smokeless tobacco Smokeless tobacco user: chewing tobacco Alcohol intake: never Marital status: Vitals/I&O/Wt Last Vital Signs Temp 98.3 F 05/28/20 18:00 Pulse 104 H 05/28/20 20:00 Resp 22 H 05/28/20 20:00 BP 109/72 05/28/20 20:00 Pulse Ox 94 05/28/20 20:00 05/28/20 05/28/20 05/28/20 06:59 14:59 22:59 Intake Total 1219.25 / 1219.25 624.417 / 817.789 8264.5 / 1813.917 Output Total 0 / 0 650 / 650 Balance 1219.25 / 1219.25 624.417 / 624.417 539.5 / 1163.917 Weight last 48 hrs Weight 252 lb Weight 252 lb 2 oz Weight 250 lb Physical Exam Const: COMMON NORMALS: patient oriented x3 HENMT: COMMON NORMALS: normocephalic and atraumatic HEAD & SCALP: normocephalic and atraumatic Chest: CHEST: Yes Symmetrical chest wall rise Resp: COMMON NORMALS: normal respiratory effort and clear to auscultation bilaterally EFFORT & INSPECTION: Yes symmetric chest movement AUSCULTATION: clear to auscultation bilaterally Cardio: OTHER: Irregularly irregular GI: COMMON NORMALS: Normal to inspection, nondistended, normoactive bowel sounds present, Soft to palpation, non-tender, No hepatosplenomegaly present and no masses AUSCULTATION: Yes normoactive bowel sounds PALPATION: Yes Soft to palpation and Yes No hepatosplenomegaly present RECTAL EXAM: Yes deferred Extremity: COMMON NORMALS: no clubbing, cyanosis or edema and no pedal edema Neuro: COMMON NORMALS: patient oriented x3 A&P Assessment and plan (1) Atrial fibrillation with rapid ventricular response: Status: Acute (2) Elevated CPK: Status: Acute (3) Elevated troponin: Status: Acute (4) Diabetes: Status: Acute Patient has presented with rhabdomyolysis after a fall and prolonged duration of being down. He has afib with RVR. Dehydration is likely trigger. Continue cardizem gtt and IV hydration. Once heart rate is better controlled, can switch to PO cardizem tomorrow. We will start with Cardizem 30 mg every 6 Continue anticoagulation with Xarelto. Telemetry monitoring. Replace electrolytes as needed. Thank you for involving us with care of this patient. We will continue to follow. Please call with questions. Coding Level of Care Code Acute Fly Rail Operator for [facility] Fwd Exam Detailed Diagnoses Atrial fibrillation with rapid ventricular response I48.91 Elevated CPK R74.8 Elevated troponin R77.8 Diabetes E11.9
[2020-05-29] VITALS (9 sets, daily range): BP systolic 106–127; BP diastolic 65–80; PULSE 92–122; RESP 15–23; TEMP 36.6–36.9; O2SAT 95–97
[2020-05-29] MEDS: sodium chloride 0.9% 1,000 ML 150 ML IV ×2 (00:09→05:31)
[2020-05-29] MEDS: dilTIAZem 30 mg Tablet PO ×2 (01:56→20:37)
--- NOTE | 2020-05-29 04:00 | USCV_ITS ---
Elia Parnell Age: 74 Gender: M : 1945 Exam Date: 05/29/2020 06:47 Ordering Phys: Teddy Joyner MD Technologist: Yumiko Montes [place] [facility] [place]: s/p [place] BP: 106 / 71 HR: 94 Rhythm: Sinus Technical Quality: Adequate MEASUREMENTS (Male / Female) Normal Values 2D ECHO LV Diastolic Diameter PLAX 4.5 cm 4.2 - 5.9 / 3.9 - 5.3 cm LV Systolic Diameter PLAX 3.6 cm LV Chamber Size 2.9 cm IVS Diastolic Thickness 1.4 cm 0.6 - 1.0 / 0.6 - 0.9 cm IVS Systolic Thickness 1.4 cm LVPW Diastolic Thickness 2.2 cm 0.6 - 1.0 / 0.6 - 0.9 cm LVPW Systolic Thickness 2.2 cm RV Chamber Size 3.1 cm LVOT Diameter 2.0 cm LV Ejection Fraction 2D Teich 42.3 % LV Ejection Fraction MOD 2C 53.4 % LV Ejection Fraction 2C AL 51.3 % LA Diameter 4.8 cm LA Width 4.1 cm LA Height 6.2 cm RA Width 3.7 cm RA Height 5.6 cm Aorta at Sinotubular Diameter 2.5 cm M-MODE LV Diastolic Diameter MM 6.9 cm 4.2 - 5.9 / 3.9 - 5.3 cm LV Systolic Diameter MM 4.9 cm LV Ejection Fraction MM Teich 54.0 % IVS Diastolic Thickness MM 0.8 cm 0.6 - 1.0 / 0.6 - 0.9 cm IVS Systolic Thickness MM 1.3 cm LVPW Diastolic Thickness MM 0.8 cm 0.6 - 1.0 / 0.6 - 0.9 cm LVPW Systolic Thickness MM 1.1 cm Aortic Annulus Diameter 3.6 cm LA Ao Ratio MM 1.4 MV E Point Septal Separation 1.1 cm DOPPLER AV Peak Velocity 188.0 cm/s LVOT Peak Velocity 114.0 cm/s AV Area Cont Eq vti 2.2 cm squared AV Area Cont Eq pk 1.9 cm squared MV Area PHT 5.0 cm squared Mitral E to A Ratio 2.8 MV E' Velocity 61.0 cm/s Mitral E to MV E' Ratio 7.5 Mitral E to LV E' Lateral Ratio 7.0 Mitral E to LV E' Septal Ratio 8.1 TR Peak Velocity 303.8 cm/s TR Peak Gradient 36.9 mmHg TV Peak E Velocity 73.0 cm/s Right Atrial Pressure 3.0 mmHg Pulmonary Artery Systolic Pressu 39.9 mmHg PV Peak Velocity 86.0 cm/s RV Acceleration Time 0.1 s RV Ejection Time 0.3 s RV AcT/ET 0.3 FINDINGS Left Ventricle Normal left ventricular size, systolic function and wall thickness, with no regional wall motion abnormalities. Left ventricular ejection fraction is estimated at 60%. Abnormal diastolic function. Right Ventricle Normal right ventricular size and systolic function. Right ventricular systolic pressure 39.9 mmHg. Right Atrium Mildly increased right atrial size. Left Atrium Mildly increased left atrial size. Mitral Valve Structurally normal mitral valve. No mitral valve stenosis. Trace mitral valve regurgitation. Aortic Valve Structurally normal trileaflet aortic valve. No aortic valve stenosis. No aortic valve regurgitation. Tricuspid Valve Structurally normal tricuspid valve. Trace tricuspid valve regurgitation. Pulmonic Valve Pulmonic valve not well visualized. Trace pulmonary valve regurgitation. Pericardium No pericardial effusion. Aorta Normal size aortic root and proximal ascending aorta. CONCLUSIONS 1. Normal left ventricular size, systolic function and wall thickness, with no regional wall motion abnormalities. Left ventricular ejection fraction is estimated at 60%. Abnormal diastolic function. 2. Mild biatrial enlargement. 3. No significant valvular abnormalities. 4. Mild pulmonary hypertension with PAP=39 mm Hg. 5. No prior similar studies to compare. Fabiola Grossman MD (Electronically Signed) Final Date: 29 May 2020 23:19 S
--- NOTE | 2020-05-29 04:44 | PC.NURSE ---
NURSE NOTE: SHIFT SUMMARY: PT ALERT AND ORIENTED X4; MOVES ALL EXTREMITIES AND FOLLOWS ALL COMMANDS. DENIES PAIN THIS SHIFT. RESTED QUIETLY ALL SHIFT. DENIED NEEDS OR COMPLAINTS OF. ALL VS AND ASSESSMENTS CHARTED. NO DISTRESS NOTED AT THIS TIME. WILL CONTINUE TO MONITOR.
[2020-05-29 05:10] LABS: Basophils % 0.6 %; Eosinophils # 0.1 10^3/uL (0.0-0.8); Eosinophils % 2.5 %; Hematocrit 35.3 % (42.0-52.0); Hemoglobin 11.6 g/dL (11.7-16.6); Lymphocytes # 1.1 10^3/uL (0.8-4.8); Lymphocytes % 21.6 %; Mean Corpuscular HGB Conc 32.9 g/dL (30.0-36.0); Mean Corpuscular Hemoglobin 30.1 pg (28.0-34.0); Mean Corpuscular Volume 91.5 fL (80-94); Mean Platelet Volume 10.5 fL (7.4-10.4); Monocytes # 0.7 10^3/uL (0.2-0.9); Monocytes % 12.5 %; Neutrophils # 3.26 10^3/uL (1.8-7.7); Neutrophils % 62.4 %; Nucleated Red Blood Cells % 0 %; Platelet Count 183 10^3/cmm (130-400); Red Blood Count 3.86 10^6/uL (4.1-5.3); Red Cell Distribution Width 13.5 % (12.1-15.1); White Blood Count 5.2 10^3/uL (4.0-10.0)
[2020-05-29 05:31] LABS: Anion Gap 11.3 (5-19); Blood Urea Nitrogen 24 mg/dL (8-23); Calcium 8.2 mg/dL (8.5-10.5); Carbon Dioxide 25 mmol/L (22-29); Chloride 105 mmol/L (98-107); Glucose 139 mg/dL (65-115); Osmolality Calculated 292 mOsm/kg (285-295); Potassium 3.3 mmol/L (3.5-5.1); Sodium 138 mmol/L (136-145)
[2020-05-29 05:52] LABS: Creatine Phosphokinase 1230 U/L (39-308)
[2020-05-29 06:32] LABS: Glucose Point of Care 140 mg/dL (70-110)
[2020-05-29] MEDS: dilTIAZem 60 mg Tablet PO ×2 (09:19→14:37)
[2020-05-29] MEDS: rivaroxaban 10 mg Tablet 20 MG PO (09:19)
[2020-05-29] MEDS: docusate sodium 100 mg Capsule PO ×2 (09:19→18:01)
[2020-05-29] MEDS: potassium chloride ER 20 mEq Tablet 40 MEQ PO (09:19)
--- NOTE | 2020-05-29 09:53 | P.PN_ITS ---
Subjective Subjective: Interval history: Patient was seen and examined this morning he continues to be in afib with RVR with rate in 110-120s. Was complaining of bad sleep last night. He denies any chest pain, shortness of breath. Patient is working with physical therapy. His other vitals and labs have been reviewed. Medications: Reviewed: Yes Vitals/I&O/Wt Last Vital Signs Temp 98.3 F 05/29/20 06:56 Pulse 111 H 05/29/20 06:56 Resp 20 H 05/29/20 06:56 BP 119/73 05/29/20 06:56 Pulse Ox 97 05/29/20 06:56 05/28/20 05/29/20 05/29/20 22:59 06:59 14:59 Intake Total 1189.5 / 0316.046 5738 / 3618.917 360 / 360 Output Total 650 / 650 650 / 1300 Balance 539.5 / 7145.444 3683 / 2318.917 360 / 360 Weight last 48 hrs Weight 122.215 kg Weight 114.305 kg Weight 114.362 kg Weight 113.398 kg Physical Exam Const: COMMON NORMALS: patient oriented x3 HENMT: COMMON NORMALS: normocephalic and atraumatic HEAD & SCALP: normocephalic and atraumatic Chest: CHEST: Yes Symmetrical chest wall rise Resp: COMMON NORMALS: normal respiratory effort and clear to auscultation bilaterally EFFORT & INSPECTION: Yes symmetric chest movement AUSCULTATION: clear to auscultation bilaterally Cardio: OTHER: S1 S2 is of Variable Intensity,irregularly irregular rhythm. NO MRG GI: COMMON NORMALS: Normal to inspection, nondistended, normoactive bowel sounds present, Soft to palpation, non-tender, No hepatosplenomegaly present and no masses AUSCULTATION: Yes normoactive bowel sounds PALPATION: Yes Soft to palpation and Yes No hepatosplenomegaly present RECTAL EXAM: Yes deferred Extremity: COMMON NORMALS: no clubbing, cyanosis or edema and no pedal edema Neuro: COMMON NORMALS: patient oriented x3 Data : 05/29/20 04:10 05/29/20 04:10 A&P Assessment and plan (1) Atrial fibrillation: A. fib with acute RVR Currently on Cardizem drip.Was given additional dose of Cardizem p.o. 60 on 05/29. Cardizem 30 mg po q6 h Daily Xarelto 20 mg po daily Status: Acute Qualifiers: Atrial fibrillation type: persistent (not longstanding) Qualified Code(s): I48.19 - Other persistent atrial fibrillation (2) Fall: Mechanical fall no acute fractures Imaging studies : CT cervical spin wo con:Negative for fracture or dislocation. Xray rt knee: Negative for fracture or dislocation. XR knee LT 3V:Negative for fracture or dislocation CT chest abd pel w con:Negative for traumatic injury to the abdomen or pelvis.Negative for traumatic injury to the chest Status: Acute (3) Elevated troponin: Likely TYPE II M.I 2/2 to demand ischemia, from A. fib with RVR. Currently he is denying any chest pain shortness of breath. 2D echo Status: Acute (4) Elevated CPK: Likely 2/2 to dehydration and fall. CPK : 4409-->1230 Continue IV hydration NS @100CC/H Trend CPK Monitor kidney function Status: Acute (5) Dehydration: He has not been able to eat or drink in last 48 hours, received 2 L normal saline bolus in the ER lactic acidemia is most likely due to dehydration no signs of sepsis, anticipate improvement with fluid resuscitation Status: Acute (6) General weakness: Physical therapy evaluation Status: Acute (7) Diabetes: LDSSI FSG HbA1c Status: Acute Additional A&P Information DVT: On Xarelto Code Status: Full code Disposition : Lives alone.Will return Home. His daughter lives in [place] Attestations Medical Necessity Statement*: Patient needs to be in the hospital for management of A. fib with RVR and the need for I.V medications. Coding Level of Care Code Acute Program Clerk for [facility] Fwd Exam Detailed Diagnoses Atrial fibrillation I48.19 Atrial fibrillation type: persistent (not longstanding) Fall W19.XXXA Elevated troponin R77.8 Elevated CPK R74.8 Dehydration E86.0 General weakness R53.1 Diabetes E11.9
--- NOTE | 2020-05-29 10:31 | P.PN_ITS ---
Subjective Subjective: Interval history: Patient is doing very better. Heart rate is still borderline high. He has been switched to oral Cardizem. Vitals/I&O/Wt Last Vital Signs Temp 98.5 F 05/29/20 10:27 Pulse 103 H 05/29/20 10:27 Resp 19 H 05/29/20 10:27 BP 123/73 05/29/20 10:27 Pulse Ox 95 05/29/20 10:27 05/28/20 05/29/20 05/29/20 22:59 06:59 14:59 Intake Total 1189.5 / 5347.898 3865 / 3618.917 360 / 360 Output Total 650 / 650 650 / 1300 250 / 250 Balance 539.5 / 6382.866 0016 / 2318.917 110 / 110 Weight last 48 hrs Weight 269 lb 7 oz Weight 252 lb Weight 252 lb 2 oz Weight 250 lb Physical Exam Const: COMMON NORMALS: patient oriented x3 HENMT: COMMON NORMALS: normocephalic and atraumatic HEAD & SCALP: normocephalic and atraumatic Chest: CHEST: Yes Symmetrical chest wall rise Resp: COMMON NORMALS: normal respiratory effort and clear to auscultation bilaterally EFFORT & INSPECTION: Yes symmetric chest movement AUSCULTATION: clear to auscultation bilaterally Cardio: OTHER: Irregularly irregular GI: COMMON NORMALS: Normal to inspection, nondistended, normoactive bowel sounds present, Soft to palpation, non-tender, No hepatosplenomegaly present and no masses AUSCULTATION: Yes normoactive bowel sounds PALPATION: Yes Soft to palpation and Yes No hepatosplenomegaly present RECTAL EXAM: Yes deferred Extremity: COMMON NORMALS: no clubbing, cyanosis or edema and no pedal edema Neuro: COMMON NORMALS: patient oriented x3 Data : 05/29/20 04:10 05/29/20 04:10 A&P Assessment and plan (1) Atrial fibrillation with rapid ventricular response: Status: Acute (2) Elevated CPK: Status: Acute (3) Elevated troponin: Status: Acute (4) Diabetes: Status: Acute Patient has presented with rhabdomyolysis after a fall and prolonged duration of being down. He has afib with RVR. Dehydration is likely trigger. Cardizem drip stopped and patient has been switched to oral Cardizem. Continue anticoagulation with Xarelto. Telemetry monitoring. Replace electrolytes as needed. Thank you for involving us with care of this patient. We will continue to follow. Please call with questions. Attestations Medical Necessity Statement*: Care expected to cross 2 midnights. Coding Level of Care Code Acute Wooden Furniture Polisher for [facility] Diagnoses Atrial fibrillation with rapid ventricular response I48.91 Elevated CPK R74.8 Elevated troponin R77.8 Diabetes E11.9
[2020-05-29 11:21] LABS: Glucose Point of Care 209 mg/dL (70-110)
[2020-05-29] MEDS: sodium chloride 0.9% 1,000 ML 100 ML IV (12:57)
--- NOTE | 2020-05-29 13:16 | PC.NURSE ---
Verbal order from Dr. Joyner to give one time dose of diltiazem 60mg at 1400 and hold the 30mg dose due at 1400.
[2020-05-29 16:11] LABS: Glucose Point of Care 146 mg/dL (70-110)
[2020-05-29 21:44] LABS: Glucose Point of Care 186 mg/dL (70-110)
[2020-05-30] VITALS (55 sets, daily range): BP systolic 133–146; BP diastolic 75–89; PULSE 88–133; RESP 0–29; TEMP 36.6–37.6; O2SAT 94–96
[2020-05-30] MEDS: sodium chloride 0.9% 1,000 ML 100 ML IV ×2 (00:16→10:44)
[2020-05-30] MEDS: dilTIAZem 30 mg Tablet PO ×2 (01:57→08:11)
[2020-05-30 05:12] LABS: Basophils % 0.7 %; Eosinophils # 0.1 10^3/uL (0.0-0.8); Eosinophils % 2.2 %; Hematocrit 34.4 % (42.0-52.0); Hemoglobin 11.3 g/dL (11.7-16.6); Lymphocytes # 1.3 10^3/uL (0.8-4.8); Lymphocytes % 22.8 %; Mean Corpuscular HGB Conc 32.8 g/dL (30.0-36.0); Mean Corpuscular Hemoglobin 30.2 pg (28.0-34.0); Mean Platelet Volume 11.5 fL (7.4-10.4); Monocytes # 0.7 10^3/uL (0.2-0.9); Monocytes % 11.8 %; Neutrophils # 3.61 10^3/uL (1.8-7.7); Nucleated Red Blood Cells % 0 %; Platelet Count 160 10^3/cmm (130-400); Red Blood Count 3.74 10^6/uL (4.1-5.3); Red Cell Distribution Width 13.7 % (12.1-15.1); White Blood Count 5.8 10^3/uL (4.0-10.0)
[2020-05-30 06:51] LABS: Glucose Point of Care 124 mg/dL (70-110)
[2020-05-30 06:56] LABS: Anion Gap 10.6 (5-19); Blood Urea Nitrogen 16 mg/dL (8-23); Calcium 8.4 mg/dL (8.5-10.5); Carbon Dioxide 25 mmol/L (22-29); Chloride 105 mmol/L (98-107); Creatinine Clr Calc Pharmacy 106.1644; Glucose 130 mg/dL (65-115); Osmolality Calculated 287 mOsm/kg (285-295); Potassium 3.6 mmol/L (3.5-5.1); Sodium 137 mmol/L (136-145)
[2020-05-30 07:00] LABS: Creatine Phosphokinase 708 U/L (39-308)
[2020-05-30] MEDS: rivaroxaban 10 mg Tablet 20 MG PO (08:11)
[2020-05-30] MEDS: docusate sodium 100 mg Capsule PO ×2 (08:11→18:47)
[2020-05-30] MEDS: dilTIAZem ER (24HR) 240 mg Capsule PO (10:43)
[2020-05-30 11:28] LABS: Glucose Point of Care 231 mg/dL (70-110)
--- NOTE | 2020-05-30 14:33 | PM.PN ---
Subjective Subjective: Interval history: Patient was seen and examined this morning. H/R is low 100s though still in A.fib,deny any chest pain, shortness of breath. Patient is working with physical therapy. His other vitals and labs have been reviewed. Medications: Reviewed: Yes Vitals/I&O/Wt Last Vital Signs Temp 99.4 F 05/30/20 10:48 Pulse 98 05/30/20 10:48 Resp 21 H 05/30/20 10:48 BP 143/83 05/30/20 10:48 Pulse Ox 94 05/30/20 10:48 05/29/20 05/30/20 05/30/20 22:59 06:59 14:59 Intake Total 1240 / 2840 120 / 2960 1840 / 1840 Output Total 500 / 1010 200 / 1210 470 / 470 Balance 740 / 1830 -80 / 1750 1370 / 1370 Weight last 48 hrs Weight 122.47 kg Weight 122.215 kg Physical Exam Const: COMMON NORMALS: patient oriented x3 HENMT: COMMON NORMALS: normocephalic and atraumatic HEAD & SCALP: normocephalic and atraumatic Chest: CHEST: Yes Symmetrical chest wall rise Resp: COMMON NORMALS: normal respiratory effort and clear to auscultation bilaterally EFFORT & INSPECTION: Yes symmetric chest movement AUSCULTATION: clear to auscultation bilaterally Cardio: OTHER: S1 S2 is of Variable Intensity,irregularly irregular rhythm. NO MRG GI: COMMON NORMALS: Normal to inspection, nondistended, normoactive bowel sounds present, Soft to palpation, non-tender, No hepatosplenomegaly present and no masses AUSCULTATION: Yes normoactive bowel sounds PALPATION: Yes Soft to palpation and Yes No hepatosplenomegaly present RECTAL EXAM: Yes deferred Extremity: COMMON NORMALS: no clubbing, cyanosis or edema and no pedal edema Neuro: COMMON NORMALS: patient oriented x3 Data : 05/30/20 04:14 05/30/20 06:19 A&P Assessment and plan (1) Atrial fibrillation: A. fib with acute RVR Currently off Cardizem drip.Was given additional doses of Cardizem p.o. 60 on 05/29. Switched to Cardizem 240 CD PO Daily Xarelto 20 mg po daily Status: Acute Qualifiers: Atrial fibrillation type: persistent (not longstanding) Qualified Code(s): I48.19 - Other persistent atrial fibrillation (2) Fall: Mechanical fall no acute fractures Imaging studies : CT cervical spin wo con:Negative for fracture or dislocation. Xray rt knee: Negative for fracture or dislocation. XR knee LT 3V:Negative for fracture or dislocation CT chest abd pel w con:Negative for traumatic injury to the abdomen or pelvis.Negative for traumatic injury to the chest Status: Acute (3) Elevated troponin: Likely TYPE II M.I 2/2 to demand ischemia, from A. fib with RVR. Currently he is denying any chest pain shortness of breath. 2D echo Status: Acute (4) Elevated CPK: Likely 2/2 to dehydration and fall. CPK : 4409-->1230 --:708 Continue IV hydration NS 50@CC/H Trend CPK Monitor kidney function Status: Acute (5) Dehydration: He has not been able to eat or drink in last 48 hours, received 2 L normal saline bolus in the ER lactic acidemia is most likely due to dehydration no signs of sepsis, anticipate improvement with fluid resuscitation Status: Acute (6) General weakness: Physical therapy evaluation Status: Acute (7) Diabetes: LDSSI FSG HbA1c Status: Acute Additional A&P Information DVT: On Xarelto Code Status: Full code Disposition : Lives alone.Will return Home. His daughter lives in [place] Attestations Medical Necessity Statement*: Patient needs to be in the hospital for management of A. fib with RVR. Coding Level of Care Code Acute Warp Spinner for [facility] Fwd Diagnoses Atrial fibrillation I48.19 Atrial fibrillation type: persistent (not longstanding) Fall W19.XXXA Elevated troponin R77.8 Elevated CPK R74.8 Dehydration E86.0 General weakness R53.1 Diabetes E11.9
[2020-05-30 17:07] LABS: Glucose Point of Care 139 mg/dL (70-110)
[2020-05-30 19:51] LABS: Glucose Point of Care 208 mg/dL (70-110)
--- NOTE | 2020-05-30 20:06 | P.PN_ITS ---
Subjective Subjective: Interval history: Patient is doing well. He says still feels weak. Heart rate is slightly elevated. Vitals/I&O/Wt Last Vital Signs Temp 99.2 F 05/30/20 19:38 Pulse 111 H 05/30/20 19:38 Resp 27 H 05/30/20 19:38 BP 134/88 05/30/20 19:38 Pulse Ox 94 05/30/20 19:38 05/30/20 05/30/20 05/30/20 06:59 14:59 22:59 Intake Total 120 / 2960 1840 / 1840 240 / 2080 Output Total 200 / 1210 470 / 470 Balance -80 / 1750 1370 / 1370 240 / 1610 Weight last 48 hrs Weight 270 lb Weight 269 lb 7 oz Physical Exam Const: COMMON NORMALS: patient oriented x3 HENMT: COMMON NORMALS: normocephalic and atraumatic HEAD & SCALP: normocephalic and atraumatic Chest: CHEST: Yes Symmetrical chest wall rise Resp: COMMON NORMALS: normal respiratory effort and clear to auscultation bilaterally EFFORT & INSPECTION: Yes symmetric chest movement AUSCULTATION: clear to auscultation bilaterally Cardio: OTHER: Irregularly irregular GI: COMMON NORMALS: Normal to inspection, nondistended, normoactive bowel sounds present, Soft to palpation, non-tender, No hepatosplenomegaly present and no masses AUSCULTATION: Yes normoactive bowel sounds PALPATION: Yes Soft to palpation and Yes No hepatosplenomegaly present RECTAL EXAM: Yes deferred Extremity: COMMON NORMALS: no clubbing, cyanosis or edema and no pedal edema Neuro: COMMON NORMALS: patient oriented x3 Data : 05/31/20 04:14 06/01/20 04:19 A&P Assessment and plan (1) Atrial fibrillation with rapid ventricular response: Status: Acute (2) Elevated CPK: Status: Acute (3) Elevated troponin: Status: Acute (4) Diabetes: Status: Acute Patient has presented with rhabdomyolysis after a fall and prolonged duration of being down. He has afib with RVR which is improving on cardizem. Dehydration is likely trigger. Cardizem drip stopped and patient has been switched to oral Cardizem. Continue anticoagulation with Xarelto. Telemetry monitoring. Replace electrolytes as needed. Thank you for involving us with care of this patient. We will continue to follow. Please call with questions. Attestations Medical Necessity Statement*: Care expected to cross 2 midnights. Coding Level of Care Code Acute Aluminum Shingle Roofer for [facility] Diagnoses Atrial fibrillation with rapid ventricular response I48.91 Elevated CPK R74.8 Elevated troponin R77.8 Diabetes E11.9
[2020-05-31] VITALS (7 sets, daily range): BP systolic 111–140; BP diastolic 58–88; PULSE 88–103; RESP 20–32; TEMP 36.7–37.4; O2SAT 90–96
[2020-05-31] MEDS: sodium chloride 0.9% 1,000 ML 50 ML IV (00:05)
--- NOTE | 2020-05-31 02:21 | PC.NURSE ---
NURSE NOTE: PT ALERT AND ORIENTED X4; MOVES ALL EXTREMITIES AND FOLLOWS COMMANDS. DENIES PAIN THIS SHIFT. CURRENTLY RESTING QUIETLY WITH EYES CLOSED. ALL VS AND ASSESSMENTS CHARTED. NO DISTRESS NOTED AT THIS TIME.
[2020-05-31 04:55] LABS: Basophils # 0.1 10^3/uL (0.0-0.1); Basophils % 0.7 %; Eosinophils # 0.1 10^3/uL (0.0-0.8); Eosinophils % 1.4 %; Hematocrit 34.8 % (42.0-52.0); Hemoglobin 11.6 g/dL (11.7-16.6); Lymphocytes # 1.5 10^3/uL (0.8-4.8); Lymphocytes % 19.3 %; Mean Corpuscular HGB Conc 33.3 g/dL (30.0-36.0); Mean Corpuscular Hemoglobin 30.9 pg (28.0-34.0); Mean Corpuscular Volume 92.6 fL (80-94); Monocytes % 12.9 %; Neutrophils # 5.01 10^3/uL (1.8-7.7); Neutrophils % 65.2 %; Nucleated Red Blood Cells % 0 %; Platelet Count 204 10^3/cmm (130-400); Red Blood Count 3.76 10^6/uL (4.1-5.3); Red Cell Distribution Width 13.6 % (12.1-15.1); White Blood Count 7.7 10^3/uL (4.0-10.0)
[2020-05-31 05:18] LABS: Anion Gap 11.7 (5-19); Blood Urea Nitrogen 13 mg/dL (8-23); Calcium 8.5 mg/dL (8.5-10.5); Carbon Dioxide 26 mmol/L (22-29); Chloride 102 mmol/L (98-107); Creatine Phosphokinase 313 U/L (39-308); Creatinine Clr Calc Pharmacy 106.1644; Glucose 146 mg/dL (65-115); Osmolality Calculated 285 mOsm/kg (285-295); Potassium 3.7 mmol/L (3.5-5.1); Sodium 136 mmol/L (136-145)
[2020-05-31 06:49] LABS: Glucose Point of Care 141 mg/dL (70-110)
[2020-05-31] MEDS: docusate sodium 100 mg Capsule PO ×2 (08:17→18:17)
[2020-05-31] MEDS: dilTIAZem ER (24HR) 240 mg Capsule PO (08:17)
[2020-05-31] MEDS: rivaroxaban 10 mg Tablet 20 MG PO (08:17)
--- NOTE | 2020-05-31 10:55 | DCPLANNER ---
IMM completed with pt 05/31/30 @ 0948. Copy of rights given to pt.
[2020-05-31 11:27] LABS: Glucose Point of Care 168 mg/dL (70-110)
--- NOTE | 2020-05-31 12:00 | P.PN_ITS ---
Subjective Subjective: Interval history: Patient was seen and examined this morning. H/R is in low 100s though still in A.fib,deny any chest pain, shortness of breath.elevated CK has resolved.No other active complaint. Other vitals and labs have been reviewed. Medications: Reviewed: Yes Vitals/I&O/Wt Last Vital Signs Temp 98.1 F 05/31/20 08:00 Pulse 90 05/31/20 08:00 Resp 20 H 05/31/20 08:00 BP 140/88 05/31/20 08:00 Pulse Ox 90 05/31/20 08:00 05/30/20 05/31/20 05/31/20 22:59 06:59 14:59 Intake Total 360 / 2200 667.5 / 2867.5 354 / 354 Output Total 250 / 720 250 / 970 Balance 110 / 1480 417.5 / 1897.5 354 / 354 Weight last 48 hrs Weight 121.79 kg Weight 122.47 kg Physical Exam Const: COMMON NORMALS: patient oriented x3 HENMT: COMMON NORMALS: normocephalic and atraumatic HEAD & SCALP: normocephalic and atraumatic Chest: CHEST: Yes Symmetrical chest wall rise Resp: COMMON NORMALS: normal respiratory effort and clear to auscultation bilaterally EFFORT & INSPECTION: Yes symmetric chest movement AUSCULTATION: clear to auscultation bilaterally Cardio: OTHER: S1 S2 is of Variable Intensity,irregularly irregular rhythm. NO MRG GI: COMMON NORMALS: Normal to inspection, nondistended, normoactive bowel sounds present, Soft to palpation, non-tender, No hepatosplenomegaly present and no masses AUSCULTATION: Yes normoactive bowel sounds PALPATION: Yes Soft to palpation and Yes No hepatosplenomegaly present RECTAL EXAM: Yes deferred Extremity: COMMON NORMALS: no clubbing, cyanosis or edema and no pedal edema Neuro: COMMON NORMALS: patient oriented x3 Data : 05/31/20 04:14 05/31/20 04:14 A&P Assessment and plan (1) Atrial fibrillation: A. fib with acute RVR Currently off Cardizem drip.Was given additional doses of Cardizem p.o. 60 on 05/29. Switched to Cardizem 240 CD PO Daily,will receive additional cardizem 60 mg * 1 dose. Xarelto 20 mg po daily Status: Acute Qualifiers: Atrial fibrillation type: persistent (not longstanding) Qualified Code(s): I48.19 - Other persistent atrial fibrillation (2) Fall: Mechanical fall no acute fractures Imaging studies : CT cervical spin wo con:Negative for fracture or dislocation. Xray rt knee: Negative for fracture or dislocation. XR knee LT 3V:Negative for fracture or dislocation CT chest abd pel w con:Negative for traumatic injury to the abdomen or pelvis.Negative for traumatic injury to the chest Status: Acute (3) Elevated troponin: Likely TYPE II M.I 2/2 to demand ischemia, from A. fib with RVR. Currently he is denying any chest pain shortness of breath. 2D echo Status: Acute (4) Elevated CPK: Likely 2/2 to dehydration and fall. CPK : 4409-->1230 --:708 Continue IV hydration NS 50@CC/H Trend CPK Monitor kidney function Status: Acute (5) Dehydration: He has not been able to eat or drink in last 48 hours, received 2 L normal saline bolus in the ER lactic acidemia is most likely due to dehydration no signs of sepsis, anticipate improvement with fluid resuscitation Status: Acute (6) General weakness: Physical therapy evaluation Status: Acute (7) Diabetes: LDSSI FSG HbA1c Status: Acute Additional A&P Information DVT: On Xarelto Code Status: Full code Disposition : Lives alone.Will return Home. His daughter lives in [place] Attestations Medical Necessity Statement*: Patient needs to be in hospital for the managment of A.fib,s/p fall, elevated ck and the need for safe discharge to either home with BAR ASSISTANT or SNF. Coding Level of Care Code Acute Pathology Laboratory Aides Teacher for [facility] Fwd Diagnoses Atrial fibrillation I48.19 Atrial fibrillation type: persistent (not longstanding) Fall W19.XXXA Elevated troponin R77.8 Elevated CPK R74.8 Dehydration E86.0 General weakness R53.1 Diabetes E11.9
[2020-05-31] MEDS: dilTIAZem ER (12HR) 60 mg Capsule PO (13:38)
[2020-05-31 16:46] LABS: Glucose Point of Care 159 mg/dL (70-110)
[2020-05-31 20:17] LABS: Glucose Point of Care 175 mg/dL (70-110)
--- NOTE | 2020-05-31 22:44 | PM.PN ---
Subjective Subjective: Interval history: Patient is doing well. No chest pain, shortness of breath. Vitals/I&O/Wt Last Vital Signs Temp 98.4 F 05/31/20 19:27 Pulse 88 05/31/20 19:27 Resp 22 H 05/31/20 19:27 BP 124/77 05/31/20 19:27 Pulse Ox 96 05/31/20 19:27 05/31/20 05/31/20 05/31/20 06:59 14:59 22:59 Intake Total 667.5 / 2867.5 708 / 708 120 / 828 Output Total 250 / 970 180 / 180 Balance 417.5 / 1897.5 528 / 528 120 / 648 Weight last 48 hrs Weight 268 lb 8 oz Weight 270 lb Physical Exam Const: COMMON NORMALS: patient oriented x3 HENMT: COMMON NORMALS: normocephalic and atraumatic HEAD & SCALP: normocephalic and atraumatic Chest: CHEST: Yes Symmetrical chest wall rise Resp: COMMON NORMALS: normal respiratory effort and clear to auscultation bilaterally EFFORT & INSPECTION: Yes symmetric chest movement AUSCULTATION: clear to auscultation bilaterally Cardio: OTHER: Irregularly irregular GI: COMMON NORMALS: Normal to inspection, nondistended, normoactive bowel sounds present, Soft to palpation, non-tender, No hepatosplenomegaly present and no masses AUSCULTATION: Yes normoactive bowel sounds PALPATION: Yes Soft to palpation and Yes No hepatosplenomegaly present RECTAL EXAM: Yes deferred Extremity: COMMON NORMALS: no clubbing, cyanosis or edema and no pedal edema Neuro: COMMON NORMALS: patient oriented x3 Data : 05/31/20 04:14 06/01/20 04:19 A&P Assessment and plan (1) Atrial fibrillation with rapid ventricular response: Status: Acute (2) Elevated CPK: Status: Acute (3) Elevated troponin: Status: Acute (4) Diabetes: Status: Acute Patient has presented with rhabdomyolysis after a fall and prolonged duration of being down. He has afib with RVR which is improving on cardizem. Dehydration is likely trigger. Cardizem drip stopped and patient has been switched to oral Cardizem. Uptitrate cardizem further Continue anticoagulation with Xarelto. Telemetry monitoring. Replace electrolytes as needed. Thank you for involving us with care of this patient. We will continue to follow. Please call with questions. Attestations Medical Necessity Statement*: Care expected to cross 2 midnights. Coding Level of Care Code Acute Physician Recruiter for [facility] Fwd Diagnoses Atrial fibrillation with rapid ventricular response I48.91 Elevated CPK R74.8 Elevated troponin R77.8 Diabetes E11.9
--- NOTE | 2020-05-31 23:56 | PC.NURSE ---
PT RESTING IN BED. PT DENIES PAIN AT THIS TIME. WILL CONTINUE TO MONITOR.
[2020-06-01] VITALS (7 sets, daily range): BP systolic 120–141; BP diastolic 72–83; PULSE 69–128; RESP 16–26; TEMP 36.6–37.1; O2SAT 94–96
[2020-06-01 05:57] LABS: Anion Gap 10.7 (5-19); Blood Urea Nitrogen 15 mg/dL (8-23); Calcium 8.6 mg/dL (8.5-10.5); Carbon Dioxide 28 mmol/L (22-29); Chloride 99 mmol/L (98-107); Glucose 130 mg/dL (65-115); Osmolality Calculated 281 mOsm/kg (285-295); Potassium 3.7 mmol/L (3.5-5.1); Sodium 134 mmol/L (136-145)
--- NOTE | 2020-06-01 05:59 | PC.NURSE ---
PT IS RESTING IN BED. PT DENIES PAIN. WILL CONTINUE TO MONITOR.
[2020-06-01] MEDS: FUROsemide 10 mg/mL SDV 4mL 40 MG IVP (06:11)
[2020-06-01 06:39] LABS: Glucose Point of Care 157 mg/dL (70-110)
[2020-06-01 07:37] LABS: Basophils # 0.1 10^3/uL (0.0-0.1); Basophils % 0.7 %; Eosinophils # 0.1 10^3/uL (0.0-0.8); Eosinophils % 1.9 %; Hematocrit 36.6 % (42.0-52.0); Lymphocytes # 1.4 10^3/uL (0.8-4.8); Mean Corpuscular HGB Conc 32.8 g/dL (30.0-36.0); Mean Corpuscular Hemoglobin 30.8 pg (28.0-34.0); Mean Corpuscular Volume 94.1 fL (80-94); Mean Platelet Volume 9.6 fL (7.4-10.4); Monocytes # 0.9 10^3/uL (0.2-0.9); Monocytes % 11.5 %; Neutrophils # 4.95 10^3/uL (1.8-7.7); Neutrophils % 66.4 %; Nucleated Red Blood Cells % 0 %; Platelet Count 240 10^3/cmm (130-400); Red Blood Count 3.89 10^6/uL (4.1-5.3); Red Cell Distribution Width 13.5 % (12.1-15.1); White Blood Count 7.5 10^3/uL (4.0-10.0)
[2020-06-01] MEDS: docusate sodium 100 mg Capsule PO ×2 (08:50→18:28)
[2020-06-01] MEDS: dilTIAZem ER (24HR) 240 mg Capsule PO (08:50)
[2020-06-01] MEDS: rivaroxaban 10 mg Tablet 20 MG PO (08:50)
[2020-06-01 11:06] LABS: Glucose Point of Care 160 mg/dL (70-110)
--- NOTE | 2020-06-01 13:32 | PM.PN ---
Subjective Subjective: Interval history: Patient was seen Medications: Reviewed: Yes Vitals/I&O/Wt Last Vital Signs Temp 98.0 F 06/01/20 10:39 Pulse 128 H 06/01/20 10:39 Resp 18 06/01/20 10:39 BP 141/83 06/01/20 10:39 Pulse Ox 96 06/01/20 10:39 05/31/20 06/01/20 06/01/20 22:59 06:59 14:59 Intake Total 1185.833 / 1893.833 594 / 594 Output Total 800 / 980 1418 / 1418 Balance 1185.833 / 1713.833 -800 / 913.833 -824 / -824 Weight last 48 hrs Weight 108.862 kg Weight 121.79 kg Physical Exam Const: COMMON NORMALS: patient oriented x3 HENMT: COMMON NORMALS: normocephalic and atraumatic HEAD & SCALP: normocephalic and atraumatic Chest: CHEST: Yes Symmetrical chest wall rise Resp: COMMON NORMALS: normal respiratory effort and clear to auscultation bilaterally EFFORT & INSPECTION: Yes symmetric chest movement AUSCULTATION: clear to auscultation bilaterally Cardio: OTHER: S1 S2 is of Variable Intensity,irregularly irregular rhythm. NO MRG GI: COMMON NORMALS: Normal to inspection, nondistended, normoactive bowel sounds present, Soft to palpation, non-tender, No hepatosplenomegaly present and no masses AUSCULTATION: Yes normoactive bowel sounds PALPATION: Yes Soft to palpation and Yes No hepatosplenomegaly present RECTAL EXAM: Yes deferred Extremity: COMMON NORMALS: no clubbing, cyanosis or edema and no pedal edema Neuro: COMMON NORMALS: patient oriented x3 Data : 06/01/20 07:29 06/01/20 04:19 A&P Assessment and plan (1) Atrial fibrillation: A. fib with acute RVR Currently off Cardizem drip. Currently on Cardizem 300 CD PO Daily, Xarelto 20 mg po daily Status: Acute Qualifiers: Atrial fibrillation type: persistent (not longstanding) Qualified Code(s): I48.19 - Other persistent atrial fibrillation (2) Fall: Mechanical fall no acute fractures Imaging studies : CT cervical spin wo con:Negative for fracture or dislocation. Xray rt knee: Negative for fracture or dislocation. XR knee LT 3V:Negative for fracture or dislocation CT chest abd pel w con:Negative for traumatic injury to the abdomen or pelvis.Negative for traumatic injury to the chest Status: Acute (3) Elevated troponin: Likely TYPE II M.I 2/2 to demand ischemia, from A. fib with RVR. Currently he is denying any chest pain shortness of breath. 2D echo: Normal LV size, systolic function and wall thickness, with no RWMA .LVEF 60%. Abnormal diastolic function.No significant valvular abnormalities. Mild pulmonary hypertension with PAP=39 mm Hg Status: Acute (4) Elevated CPK: Likely 2/2 to dehydration and fall. Resolved. Initially on I.V Hydration with NS CPK : 4409-->1230 --:708 Status: Acute (5) Dehydration: He has not been able to eat or drink in last 48 hours, received 2 L normal saline bolus in the ER lactic acidemia is most likely due to dehydration no signs of sepsis, anticipate improvement with fluid resuscitation Status: Acute (6) General weakness: Physical therapy evaluation and assessment done.Patient will benefit from placement to SNF. Status: Acute (7) Diabetes: LDSSI FSG HbA1c Status: Acute Additional A&P Information DVT: On Xarelto Code Status: Full code Disposition : Lives alone.Will return Home. His daughter lives in [place] Attestations Medical Necessity Statement*: Patient needs to be in hospital for the management of A.fib,s/p fall, and the need for safe discharge awaiting placement to SNF. Coding Level of Care Code Acute Nursing Aide for [facility] Fwd Diagnoses Atrial fibrillation I48.19 Atrial fibrillation type: persistent (not longstanding) Fall W19.XXXA Elevated troponin R77.8 Elevated CPK R74.8 Dehydration E86.0 General weakness R53.1 Diabetes E11.9
[2020-06-01 16:49] LABS: Glucose Point of Care 198 mg/dL (70-110)
[2020-06-01] MEDS: dilTIAZem ER (12HR) 60 mg Capsule PO (18:29)
[2020-06-01 20:39] LABS: Glucose Point of Care 178 mg/dL (70-110)
[2020-06-02] VITALS (8 sets, daily range): BP systolic 109–142; BP diastolic 63–83; PULSE 69–95; RESP 11–22; TEMP 36.6–37.5; O2SAT 94–96
[2020-06-02 05:32] LABS: Basophils # 0.1 10^3/uL (0.0-0.1); Basophils % 0.8 %; Eosinophils # 0.2 10^3/uL (0.0-0.8); Eosinophils % 3.3 %; Hematocrit 34.5 % (42.0-52.0); Hemoglobin 11.4 g/dL (11.7-16.6); Lymphocytes # 1.3 10^3/uL (0.8-4.8); Lymphocytes % 20.8 %; Mean Corpuscular Hemoglobin 30.2 pg (28.0-34.0); Mean Corpuscular Volume 91.5 fL (80-94); Mean Platelet Volume 10.3 fL (7.4-10.4); Monocytes # 0.8 10^3/uL (0.2-0.9); Monocytes % 12.9 %; Neutrophils # 3.76 10^3/uL (1.8-7.7); Neutrophils % 61.5 %; Nucleated Red Blood Cells % 0 %; Platelet Count 252 10^3/cmm (130-400); Red Blood Count 3.77 10^6/uL (4.1-5.3); Red Cell Distribution Width 13.3 % (12.1-15.1); White Blood Count 6.1 10^3/uL (4.0-10.0)
--- NOTE | 2020-06-02 05:46 | PC.NURSE ---
PT IS RESTING IN BED. PT DENIES PAIN AT THIS TIME. WILL CONTINUE TO MONITOR.
[2020-06-02 06:01] LABS: Anion Gap 13.8 (5-19); Blood Urea Nitrogen 16 mg/dL (8-23); Calcium 8.9 mg/dL (8.5-10.5); Carbon Dioxide 28 mmol/L (22-29); Chloride 100 mmol/L (98-107); Glucose 123 mg/dL (65-115); Osmolality Calculated 289 mOsm/kg (285-295); Potassium 3.8 mmol/L (3.5-5.1); Sodium 138 mmol/L (136-145)
[2020-06-02] MEDS: FUROsemide 10 mg/mL SDV 4mL 40 MG IVP (06:03)
[2020-06-02 06:44] LABS: Glucose Point of Care 141 mg/dL (70-110)
[2020-06-02] MEDS: dilTIAZem ER (24HR) 300 mg Capsule PO (08:08)
[2020-06-02] MEDS: rivaroxaban 10 mg Tablet 20 MG PO (08:08)
[2020-06-02] MEDS: docusate sodium 100 mg Capsule PO ×2 (08:08→17:20)
--- NOTE | 2020-06-02 09:03 | PC.SOCIAL ---
IMM Update Pg.2 of IMM Updated and reviewed with patient who verbalized understanding. Copy provided.
[2020-06-02 11:02] LABS: Glucose Point of Care 187 mg/dL (70-110)
--- NOTE | 2020-06-02 13:02 | P.PN_ITS ---
Subjective Subjective: Interval history: Patient was seen and examined today,he is doing well and was seen comfortably sitting in chair. He has been participating with physical therapy.H/R is well controlled and is ranging in mid 70s. His other Vitals and labs have been reviewed. Medications: Reviewed: Yes Vitals/I&O/Wt Last Vital Signs Temp 98.0 F 06/02/20 10:42 Pulse 91 06/02/20 10:42 Resp 11 L 06/02/20 10:42 BP 109/66 06/02/20 10:42 Pulse Ox 96 06/02/20 10:42 06/01/20 06/02/20 06/02/20 22:59 06:59 14:59 Intake Total 300 / 894 720 / 720 Output Total 670 / 2088 700 / 2788 1425 / 1425 Balance -370 / -1194 -700 / -1894 -705 / -705 Weight last 48 hrs Weight 124.647 kg Weight 108.862 kg Physical Exam Const: COMMON NORMALS: patient oriented x3 HENMT: COMMON NORMALS: normocephalic and atraumatic HEAD & SCALP: normocephalic and atraumatic Chest: CHEST: Yes Symmetrical chest wall rise Resp: COMMON NORMALS: normal respiratory effort and clear to auscultation bi laterally EFFORT & INSPECTION: Yes symmetric chest movement AUSCULTATION: clear to auscultation bilaterally Cardio: OTHER: S1 S2 is of Variable Intensity,irregularly irregular rhythm. NO MRG GI: COMMON NORMALS: Normal to inspection, nondistended, normoactive bowel sounds present, Soft to palpation, non-tender, No hepatosplenomegaly present and no masses AUSCULTATION: Yes normoactive bowel sounds PALPATION: Yes Soft to palpation and Yes No hepatosplenomegaly present RECTAL EXAM: Yes deferred Extremity: COMMON NORMALS: no clubbing, cyanosis or edema and no pedal edema Neuro: COMMON NORMALS: patient oriented x3 Data : 06/02/20 04:19 06/02/20 04:19 A&P Assessment and plan (1) Atrial fibrillation: A. fib with RVR;Resolved H/R is well controlled Currently off Cardizem drip. Currently on Cardizem 300 CD PO Daily, Xarelto 20 mg po daily 2D echo: Normal LV size, systolic function and wall thickness, with no RWMA .LVEF 60%. Abnormal diastolic function.No significant valvular abnormalities. Mild pulmonary hyper tension with PAP=39 mm Hg Status: Acute Qualifiers: Atrial fibrillation type: persistent (not longstanding) Qualified Code(s): I48.19 - Other persistent atrial fibrillation (2) Fall: Mechanical fall no acute fractures Imaging studies : CT cervical spin wo con:Negative for fracture or dislocation. Xray rt knee: Negative for fracture or dislocation. XR knee LT 3V:Negative for fracture or dislocation CT chest abd pel w con:Negative for traumatic injury to the abdomen or pelvis.Negative for traumatic injury to the chest Status: Acute (3) Elevated troponin: Likely TYPE II M.I 2/2 to demand ischemia, from A. fib with RVR. Currently he is denying any chest pain shortness of breath. 2D echo: Normal LV size, systolic function and wall thickness, with no RWMA .LVEF 60%. Abnormal diastolic function.No significant valvular abnormalities. Mild pulmonary hypertension with PAP=39 mm Hg Status: Acute (4) Heart failure: HFpEF currently compensated. Continue Lasix 40 mg I.V Daily.Can be switched to 40 mg lasix po daily. Daily weight I/O Charting Keep K>4 and Mg> 2 Status: Acute (5) Elevated CPK: Likely 2/2 to dehydration and fall. Resolved. Initially on I.V Hydration with NS CPK : 4409-->1230 --:708 Status: Acute (6) Dehydration: He has not been able to eat or drink in last 48 hours, received 2 L normal saline bolus in the ER lactic acidemia is most likely due to dehydration no signs of sepsis, anticipate improvement with fluid resuscitation Status: Acute (7) General weakness: Physical therapy evaluation and assessment done.Patient will benefit from placement to SNF. Status: Acute (8) Diabetes: LDSSI FSG HbA1c Status: Acute Additional A&P Information DVT: On Xarelto Code Status: Full code Disposition : Awaiting Placement to SNF. Attestations Medical Necessity Statement*: Patient needs to be in hospital for the management of A.fib,weakness,s/p fall and the need for safe discharge.Awaiting Placement to SNF. Coding Level of Care Code Acute Chemical Detection Expert for [facility] Fwd Diagnoses Atrial fibrillation I48.19 Atrial fibrillation type: persistent (not longstanding) Fall W19.XXXA Elevated troponin R77.8 Heart failure I50.9 Elevated CPK R74.8 Dehydration E86.0 General weakness R53.1 Diabetes E11.9
[2020-06-02 16:53] LABS: Glucose Point of Care 152 mg/dL (70-110)
[2020-06-02] MEDS: polyethylene glycol 3350 Pkt 17 gm PO (20:09)
[2020-06-02 20:13] LABS: Glucose Point of Care 201 mg/dL (70-110)
[2020-06-03] VITALS (9 sets, daily range): BP systolic 113–132; BP diastolic 71–79; PULSE 74–89; RESP 12–21; TEMP 36.4–36.8; O2SAT 93–96
--- NOTE | 2020-06-03 00:25 | PC.NURSE ---
Patient awake and visiting with RADIO STATION OPERATOR. Not sleeping this evening. Very pleasant and agreeable.
[2020-06-03 05:31] LABS: Basophils % 0.7 %; Eosinophils # 0.2 10^3/uL (0.0-0.8); Eosinophils % 2.5 %; Hematocrit 35.2 % (42.0-52.0); Hemoglobin 11.5 g/dL (11.7-16.6); Lymphocytes # 1.4 10^3/uL (0.8-4.8); Lymphocytes % 22.7 %; Mean Corpuscular HGB Conc 32.7 g/dL (30.0-36.0); Mean Corpuscular Volume 91.9 fL (80-94); Mean Platelet Volume 10.1 fL (7.4-10.4); Monocytes # 0.9 10^3/uL (0.2-0.9); Monocytes % 14.8 %; Neutrophils # 3.51 10^3/uL (1.8-7.7); Neutrophils % 58.8 %; Nucleated Red Blood Cells % 0 %; Platelet Count 288 10^3/cmm (130-400); Red Blood Count 3.83 10^6/uL (4.1-5.3); Red Cell Distribution Width 13.2 % (12.1-15.1)
[2020-06-03 05:49] LABS: Anion Gap 11.9 (5-19); Blood Urea Nitrogen 17 mg/dL (8-23); Calcium 8.6 mg/dL (8.5-10.5); Carbon Dioxide 29 mmol/L (22-29); Chloride 98 mmol/L (98-107); Creatinine Clr Calc Pharmacy 106.7693; Glucose 134 mg/dL (65-115); Osmolality Calculated 284 mOsm/kg (285-295); Potassium 3.9 mmol/L (3.5-5.1); Sodium 135 mmol/L (136-145)
[2020-06-03] MEDS: FUROsemide 10 mg/mL SDV 4mL 40 MG IVP (06:05)
--- NOTE | 2020-06-03 06:13 | PC.NURSE ---
Assisted patient up to BSC. Patient tolerated well.
[2020-06-03 07:00] LABS: Glucose Point of Care 145 mg/dL (70-110)
[2020-06-03] MEDS: polyethylene glycol 3350 Pkt 17 gm PO (08:31)
[2020-06-03] MEDS: rivaroxaban 10 mg Tablet 20 MG PO (08:31)
[2020-06-03] MEDS: docusate sodium 100 mg Capsule PO ×2 (08:32→17:42)
[2020-06-03] MEDS: dilTIAZem ER (24HR) 300 mg Capsule PO (08:58)
[2020-06-03 11:27] LABS: Glucose Point of Care 149 mg/dL (70-110)
[2020-06-03 15:37] LABS: SARS Covid-2 Antigen Negative (Negative)
[2020-06-03 16:48] LABS: Glucose Point of Care 133 mg/dL (70-110)
--- NOTE | 2020-06-03 18:35 | PM.PN ---
Subjective Subjective: Interval history: No new complaints today, denies any chest pain dyspnea or shortness of breath. Lower extremity edema states is much improved compared to admission. Medications: Reviewed: Yes Vitals/I&O/Wt Last Vital Signs Temp 98.0 F 06/03/20 14:45 Pulse 82 06/03/20 14:45 Resp 21 H 06/03/20 14:45 BP 119/73 06/03/20 14:45 Pulse Ox 96 06/03/20 14:45 06/03/20 06/03/20 06/03/20 06:59 14:59 22:59 Intake Total 240 / 1200 710 / 710 340 / 1050 Output Total 200 / 2025 500 / 500 150 / 650 Balance 40 / -825 210 / 210 190 / 400 Weight last 48 hrs Weight 120.973 kg Weight 123.831 kg Weight 124.647 kg Physical Exam Narrative: EXAM NARRATIVE: GEN: Awake, alert and oriented, no acute distress CVS: S1S2 N RS: CTA B/L Abd: Soft, nt/nd , bs+ OIL RIG DRILLER: no focal neuro deficits EXT: 1+ LE edema Data : 06/03/20 04:25 06/03/20 04:25 A&P Assessment and plan (1) Atrial fibrillation: A. fib with RVR;Resolved H/R is well controlled Currently off Cardizem drip. Currently on Cardizem 300 CD PO Daily, Xarelto 20 mg po daily 2D echo: Normal LV size, systolic function and wall thickness, with no RWMA .LVEF 60%. Abnormal diastolic function.No significant valvular abnormalities. Mild pulmonary hypertension with PAP=39 mm Hg Status: Acute Qualifiers: Atrial fibrillation type: persistent (not longstanding) Qualified Code(s): I48.19 - Other persistent atrial fibrillation (2) Fall: Mechanical fall no acute fractures Imaging studies : CT cervical spin wo con:Negative for fracture or dislocation. Xray rt knee: Negative for fracture or dislocation. XR knee LT 3V:Negative for fracture or dislocation CT chest abd pel w con:Negative for traumatic injury to the abdomen or pelvis.Negative for traumatic injury to the chest Status: Acute (3) Elevated troponin: Likely TYPE II M.I 2/2 to demand ischemia, from A. fib with RVR. Currently he is denying any chest pain shortness of breath. 2D echo: Normal LV size, systolic function and wall thickness, with no RWMA .LVEF 60%. Abnormal diastolic function.No significant valvular abnormalities. Mild pulmonary hypertension with PAP=39 mm Hg Status: Acute (4) Heart failure: HFpEF currently compensated. Continue Lasix 40 mg I.V Daily.Change to 40mg po BID Daily weight I/O Charting Keep K>4 and Mg> 2 Status: Acute (5) Elevated CPK: Likely 2/2 to dehydration and fall. Resolved. Initially on I.V Hydration with NS CPK : 4409-->1230 --:708 Status: Acute (6) Dehydration: He has not been able to eat or drink in last 48 hours, received 2 L normal saline bolus in the ER lactic acidemia is most likely due to dehydration no signs of sepsis, anticipate improvement with fluid resuscitation Status: Acute (7) General weakness: Physical therapy evaluation and assessment done.Patient will benefit from placement to SNF. Status: Acute (8) Diabetes: LDSSI FSG HbA1c Status: Acute Additional A&P Information DVT: On Xarelto Code Status: Full code Disposition : snf . Attestations Medical Necessity Statement*: Change IV to oral diuretics and monitor clinically. If stable plan discharge in the upcoming 24 hours to SNF. Coding Level of Care Code Acute [place] Pen Cartridge Tester for g Fwd Diagnoses Atrial fibrillation I48.19 Atrial fibrillation type: persistent (not longstanding) Fall W19.XXXA Elevated troponin R77.8 Heart failure I50.9 Elevated CPK R74.8 Dehydration E86.0 General weakness R53.1 Diabetes E11.9
[2020-06-03 20:39] LABS: Glucose Point of Care 195 mg/dL (70-110)
--- NOTE | 2020-06-03 22:03 | P.PN_ITS ---
Subjective Subjective: Interval history: Patient is doing well. Denies complaints of chest pain, shortness of breath or palpitations. His heart rate is better controlled now. Vitals/I&O/Wt Last Vital Signs Temp 98.1 F 06/03/20 19:48 Pulse 78 06/03/20 19:48 Resp 15 06/03/20 19:48 BP 130/79 06/03/20 19:48 Pulse Ox 93 06/03/20 19:48 06/03/20 06/03/20 06/03/20 06:59 14:59 22:59 Intake Total 240 / 1200 710 / 710 340 / 1050 Output Total 200 / 2025 500 / 500 450 / 950 Balance 40 / -825 210 / 210 -110 / 100 Weight last 48 hrs Weight 266 lb 11.2 oz Weight 273 lb Weight 274 lb 12.8 oz Physical Exam Const: COMMON NORMALS: patient oriented x3 HENMT: COMMON NORMALS: normocephalic and atraumatic HEAD & SCALP: normocephalic and atraumatic Chest: CHEST: Yes Symmetrical chest wall rise Resp: COMMON NORMALS: normal respiratory effort and clear to auscultation bilaterally EFFORT & INSPECTION: Yes symmetric chest movement AUSCULTATION: clear to auscultation bilaterally Cardio: OTHER: Irregularly irregular GI: COMMON NORMALS: Normal to inspection, nondistended, normoactive bowel sounds present, Soft to palpation, non-tender, No hepatosplenomegaly present and no masses AUSCULTATION: Yes normoactive bowel sounds PALPATION: Yes Soft to palpation and Yes No hepatosplenomegaly present RECTAL EXAM: Yes deferred Extremity: COMMON NORMALS: no clubbing, cyanosis or edema and no pedal edema Neuro: COMMON NORMALS: patient oriented x3 Data : 06/03/20 04:25 06/03/20 04:25 A&P Assessment and plan (1) Atrial fibrillation with rapid ventricular response: Status: Acute (2) Elevated CPK: Status: Acute (3) Elevated troponin: Status: Acute (4) Diabetes: Status: Acute Patient has presented with rhabdomyolysis after a fall and prolonged duration of being down. Heart rate is controlled now. On Cardizem 300mg. Continue Continue anticoagulation with Xarelto. Telemetry monitoring. Replace electrolytes as needed. Patient awaiting placement Thank you for involving us with care of this patient. We will continue to follow. Please call with questions. Attestations Medical Necessity Statement*: Care expected to cross 2 midnights. Coding Level of Care Code Acute Funeral Director/Embalmer/Owner for Loretta [facility] Diagnoses Atrial fibrillation with rapid ventricular response I48.91 Elevated CPK R74.8 Elevated troponin R77.8 Diabetes E11.9
--- NOTE | 2020-06-03 23:58 | PC.NURSE ---
PT IS RESTING IN BED. PT DENIES PAIN. WILL CONTINUE TO MONITOR.
[2020-06-04] VITALS: BP 128/75; PULSE 74; RESP 22; TEMP 36.6; O2SAT 95
[2020-06-04 04:00] VITALS: BP 123/83; PULSE 83; RESP 14; TEMP 36.6; O2SAT 92
[2020-06-04 04:59] LABS: Basophils # 0.1 10^3/uL (0.0-0.1); Eosinophils # 0.1 10^3/uL (0.0-0.8); Eosinophils % 2.6 %; Hematocrit 38.5 % (42.0-52.0); Hemoglobin 12.3 g/dL (11.7-16.6); Lymphocytes # 1.4 10^3/uL (0.8-4.8); Lymphocytes % 28.1 %; Mean Corpuscular HGB Conc 31.9 g/dL (30.0-36.0); Mean Corpuscular Hemoglobin 30.8 pg (28.0-34.0); Mean Corpuscular Volume 96.5 fL (80-94); Mean Platelet Volume 10.5 fL (7.4-10.4); Monocytes # 0.7 10^3/uL (0.2-0.9); Monocytes % 13.8 %; Neutrophils # 2.74 10^3/uL (1.8-7.7); Neutrophils % 54.1 %; Nucleated Red Blood Cells % 0 %; Platelet Count 274 10^3/cmm (130-400); Red Blood Count 3.99 10^6/uL (4.1-5.3); Red Cell Distribution Width 13.2 % (12.1-15.1); White Blood Count 5.1 10^3/uL (4.0-10.0)
--- NOTE | 2020-06-04 05:10 | PC.NURSE ---
PT IS RESTING IN BED PT DENIES PAIN AT THIS TIME. WILL CONTINUE TO MONITOR.
[2020-06-04 05:28] LABS: Albumin Level 2.9 g/dL (3.5-5.2); Blood Urea Nitrogen 18 mg/dL (8-23); Calcium 9.3 mg/dL (8.5-10.5); Carbon Dioxide 27 mmol/L (22-29); Chloride 97 mmol/L (98-107); Globulin 4.3 g/dL (1.3-4.6); Glucose 111 mg/dL (65-115); Osmolality Calculated 281 mOsm/kg (285-295); Sodium 134 mmol/L (136-145); Total Bilirubin 1.5 mg/dL (0.15-1.2); Total Protein 7.2 g/dL (6.6-8.7)
[2020-06-04 05:37] LABS: Alanine Aminotransferase 26 U/L (0-41); Anion Gap 14.8 (5-19); Aspartate Amino Transferase 29 U/L (0-40)
[2020-06-04 05:38] LABS: Potassium 4.8 mmol/L (3.5-5.1)
[2020-06-04 06:00] VITALS: PULSE 85
[2020-06-04 06:51] LABS: Glucose Point of Care 135 mg/dL (70-110)
[2020-06-04 07:07] VITALS: BP 124/80; PULSE 96; RESP 19; TEMP 36.6; O2SAT 95
[2020-06-04 07:07] LABS: Alkaline Phosphatase 68 IU/L (40-130)
[2020-06-04] MEDS: dilTIAZem ER (24HR) 300 mg Capsule PO (09:15)
[2020-06-04] MEDS: rivaroxaban 10 mg Tablet 20 MG PO (09:15)
[2020-06-04] MEDS: FUROsemide 40 mg Tablet PO (09:15)
[2020-06-04] MEDS: docusate sodium 100 mg Capsule PO (09:15)
[2020-06-04] MEDS: polyethylene glycol 3350 Pkt 17 gm PO (09:16)
--- NOTE | 2020-06-04 10:03 | P.DS_ITS ---
Discharge Providers Date of Admission: 05/28/20 21:04 Date of Discharge: June 04, 2020 Attending Provider at Admission: Kevin Arellano MD Attending Provider at Discharge: Monse Hidalgo MD Primary Care Provider: Tayo Kirkland MD Diagnoses at Discharge Discharge Diagnosis (1) Atrial fibrillation with rapid ventricular response: Status: Acute (2) Elevated CPK: Status: Acute (3) Elevated troponin: Status: Acute (4) Diabetes: Status: Acute Reason for Visit Reason for Visit: FALL/ AFIB W/RVR Hospital Course Hospital Course 74 year old male who has history of afib, chronic anticoagulation came to hospital on May 27, 2020 after he had a fall at home and was found about 1-2 days later by his friend. He says he slipped and fell in his basement, called for help but no one could hear him. When EMS arrived, he was in afib with RVR with heart rates in 160s. His CPK was also markedly elevated. He was diagnosed with having rhabdomyolysis after a fall and for long duration of being down. Dehydration was thought to be the trigger of his A. fib with RVR. He initially received Cardizem gtt. and IV hydration, later switched to p.o. Cardizem 300 daily with which his heart rate is currently well controlled. He participated with physical therapy during the course of admission. He has had improved rhabdomyolysis. Lasix was reinitiated at 40 mg IV daily, transition to oral Lasix at discharge. patient is currently chest pain-free, stable, being transitioned to SNF. He reports that he was unable to take his medications as prescribed prior to this current admission as his few days ago and he spent most of his time at her bedside. Imaging studies : CT cervical spin wo con:Negative for fracture or dislocation. Xray rt knee: Negative for fracture or dislocation. XR knee LT 3V:Negative for fracture or dislocation CT chest abd pel w con:Negative for traumatic injury to the abdomen or pelvis.Negative for traumatic injury to the chest Physical Exam Narrative: EXAM NARRATIVE: GEN: Awake, alert and oriented, no acute distress CVS: S1S2 N RS: CTA B/L Abd: Soft, nt/nd , bs+ MENTAL HEALTH NURSE: no focal neuro deficits ext: minimal LE pitting edema B/L Discharge Data Data Completed and Pending: Completed Studies During Hospitalization Category Date Time Status CT cervical spin wo con* [id number] Stat Cat Scan 05/27/20 20:[address] chest abd pel w con* Stat Cat Scan 05/27/20 20:[address] head wo con* [id number] Urgent Cat Scan 05/27/20 20:45 Completed XR chest 1V jose alberto ble [id number] Urgent Exams 05/27/20 20:45 Completed XR knee LT 3V* 73 [id number] Stat Exams 05/27/20 20:51 Completed XR knee RT 3V* 73 562 Stat Exams 05/27/20 20:51 Completed CV echo complete* [id number] Routine Ultrasound 05/29/20 04:00 Completed Labs from last 24 hours 06/04/20 06/04/20 06/04/20 06:42 04:02 04:02 WBC 5.1 RBC 3.99 L Hgb 12.3 Hct 38.5 L MCV 96.5 H D MCH 30.8 MCHC 31.9 RDW 13.2 Plt Count 274 MPV 10.5 H Neut % (Auto) 54.1 Lymph % (Auto) 28.1 [place] % (Auto) 13.8 Eos % (Auto) 2.6 Baso % (Auto) 1.0 Neut # (Auto) 2.74 Lymph # (Auto) 1.4 [place] # (Auto) 0.7 Eos # (Auto) 0.1 Baso # (Auto) 0.1 Nucleated RBC % (a uto) 0 Nucleated RBCs # 0.0 Sodium 134 L Potassium 4.8 Chloride 97 L Carbon Dioxide 27 Anion Gap 14.8 BUN 18 Creatinine 0.7 GFR Calculation Not Reportable Glucose 111 POC Glucose 135 H Calculated Osmolal ity 281 L Calcium 9.3 Total Bilirubin 1.5 H AST 29 ALT 26 Alkaline Phosphata se 68 Total Protein 7.2 Albumin 2.9 L Globulin 4.3 SARS-CoV-2 Ag (Rap id) 06/03/20 06/03/20 06/03/20 19:51 16:41 15:00 WBC RBC Hgb Hct MCV MCH MCHC RDW Plt Count MPV Neut % (Auto) Lymph % (Auto) [place] % (Auto) Eos % (Auto) Baso % (Auto) Neut # (Auto) Lymph # (Auto) [place] # (Auto) Eos # (Auto) Baso # (Auto) Nucleated RBC % (a uto) Nucleated RBCs # Sodium Potassium Chloride Carbon Dioxide Anion Gap BUN Creatinine GFR Calculation Glucose POC Glucose 195 H 133 H Calculated Osmolal ity Calcium Total Bilirubin AST ALT Alkaline Phosphata se Total Protein Albumin Globulin SARS-CoV-2 Ag (Rap id) Negative 06/03/20 10:48 WBC RBC Hgb Hct MCV MCH MCHC RDW Plt Count MPV Neut % (Auto) Lymph % (Auto) [place] % (Auto) Eos % (Auto) Baso % (Auto) Neut # (Auto) Lymph # (Auto) [place] # (Auto) Eos # (Auto) Baso # (Auto) Nucleated RBC % (a uto) Nucleated RBCs # Sodium Potassium Chloride Carbon Dioxide Anion Gap BUN Creatinine GFR Calculation Glucose POC Glucose 149 H Calculated Osmolal ity Calcium Total Bilirubin AST ALT Alkaline Phosphata se Total Protein Albumin Globulin SARS-CoV-2 Ag (Rap id) Addt'l Data from Hospital Stay: Laboratory Results WBC 5.1 10^3/uL (4.0- 10.0) 06/04/20 04:02 Corrected WBC Cancelled 06/01/20 04:19 RBC 3.99 10^6/uL (4.1 -5.3) L 06/04/20 04:02 Hgb 12.3 g/dL (11.7-1 6.6) 06/04/20 04:02 Hct 38.5 % (42.0-52.0 ) L 06/04/20 04:02 MCV 96.5 fL (80-94) H D 06/04/20 04:02 MCH 30.8 pg (28.0-34. 0) 06/04/20 04:02 MCHC 31.9 g/dL (30.0-3 6.0) 06/04/20 04:02 RDW 13.2 % (12.1-15.1 ) 06/04/20 04:02 Plt Count 274 10^3/cmm (130 -400) 06/04/20 04:02 MPV 10.5 fL (7.4-10.4 ) H 06/04/20 04:02 Gran % Cancelled 06/01/20 04:19 Neut % (Auto) 54.1 % 06/04/20 04:02 Lymph % (Auto) 28.1 % 06/04/20 04:02 [place] % (Auto) 13.8 % 06/04/20 04:02 Eos % (Auto) 2.6 % 06/04/20 04:02 Baso % (Auto) 1.0 % 06/04/20 04:02 Neut # (Auto) 2.74 10^3/uL (1.8 -7.7) 06/04/20 04:02 Lymph # (Auto) 1.4 10^3/uL (0.8- 4.8) 06/04/20 04:02 [place] # (Auto) 0.7 10^3/uL (0.2- 0.9) 06/04/20 04:02 Eos # (Auto) 0.1 10^3/uL (0.0- 0.8) 06/04/20 04:02 Baso # (Auto) 0.1 10^3/uL (0.0- 0.1) 06/04/20 04:02 Absolute Gran (aut o) Cancelled 06/01/20 04:19 Nucleated RBC % (a uto) 0 % 06/04/20 04:02 Nucleated RBCs # 0.0 /100WBC 06/04/20 04:02 Sodium 134 mmol/L (136-1 45) L 06/04/20 04:02 Potassium 4.8 mmol/L (3.5-5 .1) 06/04/20 04:02 Chloride 97 mmol/L (98-107 ) L 06/04/20 04:02 Carbon Dioxide 27 mmol/L (22-29) 06/04/20 04:02 Anion Gap 14.8 (5-19) 06/04/20 04:02 BUN 18 mg/dL (8-23) 06/04/20 04:02 Creatinine 0.7 mg/dL (0.7-1. 2) 06/04/20 04:02 GFR Calculation Not Reportable 06/04/20 04:02 Glucose 111 mg/dL (65-115 ) 06/04/20 04:02 POC Glucose 135 mg/dL (70-110 ) H 06/04/20 06:42 Calculated Osmolal ity 281 mOsm/kg (285- 295) L 06/04/20 04:02 Lactate 2.6 mmol/L (0.5-2 .2) H 05/27/20 21:08 Calcium 9.3 mg/dL (8.5-10 .5) 06/04/20 04:02 Magnesium 2.1 mg/dL (1.7-2. 3) 05/28/20 02:52 Total Bilirubin 1.5 mg/dL (0.15-1 .2) H 06/04/20 04:02 AST 29 U/L (0-40) 06/04/20 04:02 ALT 26 U/L (0-41) 06/04/20 04:02 Alkaline Phosphata se 68 IU/L (40-130) 06/04/20 04:02 Creatine Kinase 313 U/L (39-308) H 05/31/20 04:14 Troponin T Baselin e 31 ng/L (0-15) H 05/27/20 21:08 Troponin T 120 Min guillermo 32.48 ng/L (0-15) H 05/27/20 22:58 Delta Troponin T 1.48 ABS# (0-10) 05/27/20 22:58 Troponin T Hi Sens 6Hr 38.44 ng/L (0-15) H 05/28/20 02:52 Troponin T Hi Sens 6Hr Delta 7.44 ng/L (0-12) 05/28/20 02:52 NT-Pro-B Natriuret Pep 657 pg/mL (0-450) H 05/27/20 21:08 Total Protein 7.2 g/dL (6.6-8.7 ) 06/04/20 04:02 Albumin 2.9 g/dL (3.5-5.2 ) L 06/04/20 04:02 Globulin 4.3 g/dL (1.3-4.6 ) 06/04/20 04:02 TSH 5.18 uIU/mL (0.27 -4.20) H 05/28/20 02:52 SARS-CoV-2 Ag (Rap id) Negative (Negati ve) 06/03/20 15:00 Impressions Chest X-Ray 05/27/20 20:45 IMPRESSION: 1. Cardiomegaly. 2. Pulmonary vascular congestion. 3. Bibasilar atelectasis. Head CT 05/27/20 20:45 IMPRESSION: Negative for intracranial hemorrhage or mass effect. Radiation Dose CTDIVOL = (mGy): DLP = 909.37 (mGy-cm) Chest/Abdomen/Pelvis CT 05/27/20 20:51 IMPRESSION: 1. Negative for traumatic injury to the abdomen or pelvis. 2. Several right kidney benign cysts, negative for follow up. 3. Right kidney nonobstructing renal calyceal stone. COMMENTS: Consistent with the [employer] [employer]'s Incidental Findings Committee white paper (J Am Jordan Radiol 2018): Any incidental renal lesion less than 1 cm or classified as too small to characterize, or any incidental cystic renal lesion characterized as simple-appearing, is likely benign. No follow-up imaging is recommended for these lesions per consensus recommendations based on imaging criteria. Radiation Dose CTDIVOL = (mGy): DLP = 2615.26~2615.26 (mGy-cm) Knee X-Ray 05/27/20 20:51 IMPRESSION: 1. Negative for fracture or dislocation 2. Scattered vascular calcifications. 3. Moderate tricompartmental osteoarthritis of the knee. Cervical Spine CT 05/27/20 20:54 IMPRESSION: 1. Negative for fracture or dislocation. 2. Degenerative disc space narrowing throughout the cervical spine. Radiation Dose CTDIVOL = (mGy): DLP = 880.73 (mGy-cm) Vitals: Last Vital Signs Temp 97.8 F 06/04/20 07:07 Pulse 96 06/04/20 07:07 Resp 19 H 06/04/20 07:07 BP 124/80 06/04/20 07:07 Pulse Ox 95 06/04/20 07:07 Discharge Plan Discharge Patient Disposition: er [facility] Condition: Stable Prescriptions: New diltiazem HCl 300 mg Capsule,Extended Release 24hr 300 mg PO DAILY 30 Days Qty: 30 RF: 0 polyethylene glycol 3350 17 gram Powder In Packet 17 g PO DAILY 30 Days Qty: 30 RF: 0 Continued docusate sodium [Colace] 100 mg capsule 100 mg PO BID Qty: 60 RF: 2 furosemide 40 mg tablet 40 mg PO DAILY 60 Days Qty: 60 RF: 1 metformin 500 mg tablet 500 mg PO BID 90 Days Qty: 180 RF: 3 Xarelto 20 mg tablet 20 mg PO DAILY Qty: 30 RF: 6 Discontinued ibuprofen [IBU-200] 200 mg tablet 200 mg PO Q6H PRN (Reason: Pain) RF: 0 bisoprolol fumarate 5 mg tablet 5 mg PO BID 90 Days Qty: 180 RF: 3 Discharge Orders: Discharge Order (Routine); Ordered 06/04/20 Ordered By: Monse Hidalgo Referrals: Tayo Kirkland MD [Primary Care Provider] - Discharge Attestations Time Spent in Discharge Care*: greater than 30 min Specific Discharge Activities: educating patient and discussing with case supervisor/social workers/dc planners Quality Metrics Clinical Quality Measures During this hospital stay, did patient experience: None Coding Level of Care Code Acute Ceo And Founder for Chg Fwd Diagnoses Atrial fibrillation with rapid ventricular response I48.91 Elevated CPK R74.8 Elevated troponin R77.8 Diabetes E11.9
--- NOTE | 2020-06-04 10:34 | DCPLANNER ---
IMM completed with pt on 06/04/20 @ 6215. Copy of rights given to pt.
[2020-06-04 10:49] VITALS: BP 118/76; PULSE 89; RESP 18; TEMP 36.7; O2SAT 95
--- NOTE | 2020-06-04 11:05 | PM.PN ---
Subjective Subjective: Interval history: Patient is doing well. He denies any complaints of chest pain, shortness of breath or palpitations. His heart rate is well controlled. Vitals/I&O/Wt Last Vital Signs Temp 98.0 F 06/04/20 10:49 Pulse 89 06/04/20 10:49 Resp 18 06/04/20 10:49 BP 118/76 06/04/20 10:49 Pulse Ox 95 06/04/20 10:49 06/03/20 06/04/20 06/04/20 22:59 06:59 14:59 Intake Total 400 / 1110 250 / 1360 360 / 360 Output Total 1150 / 1650 1600 / 3250 450 / 450 Balance -750 / -540 -1350 / -1890 -90 / -90 Weight last 48 hrs Weight 263 lb 14.4 oz Weight 266 lb 11.2 oz Weight 273 lb Physical Exam Const: COMMON NORMALS: patient oriented x3 HENMT: COMMON NORMALS: normocephalic and atraumatic HEAD & SCALP: normocephalic and atraumatic Chest: CHEST: Yes Symmetrical chest wall rise Resp: COMMON NORMALS: normal respiratory effort and clear to auscultation bilaterally EFFORT & INSPECTION: Yes symmetric chest movement AUSCULTATION: clear to auscultation bilaterally Cardio: OTHER: Irregularly irregular GI: COMMON NORMALS: Normal to inspection, nondistended, normoactive bowel sounds present, Soft to palpation, non-tender, No hepatosplenomegaly present and no masses AUSCULTATION: Yes normoactive bowel sounds PALPATION: Yes Soft to palpation and Yes No hepatosplenomegaly present RECTAL EXAM: Yes deferred Extremity: COMMON NORMALS: no clubbing, cyanosis or edema and no pedal edema Neuro: COMMON NORMALS: patient oriented x3 Data : 06/04/20 04:02 06/04/20 04:02 A&P Assessment and plan (1) Atrial fibrillation with rapid ventricular response: Status: Acute (2) Elevated CPK: Status: Resolved (3) Elevated troponin: Status: Resolved (4) Diabetes: Status: Acute Patient has presented with rhabdomyolysis after a fall and prolonged duration of being down. Heart rate is controlled now. On Cardizem 300mg. Continue Continue anticoagulation with Xarelto. Patient is stable to be discharged from cardiology standpoint. Outpatient follow up with cardiology Thank you for involving us with care of this patient. We will continue to follow. Please call with questions. Attestations Medical Necessity Statement*: Care expected to cross 2 midnights. Coding Level of Care Code Acute Environment Coordinator for Loretta Jason Diagnoses Atrial fibrillation with rapid ventricular response I48.91 Elevated CPK R74.8 Elevated troponin R77.8 Diabetes E11.9
[2020-06-04 11:11] LABS: Glucose Point of Care 174 mg/dL (70-110)
--- NOTE | 2020-06-04 11:45 | PC.NURSE ---
Patient to discharge to [facility]; report called to Edelmira PACHECO unable to contact daughter phone number in chart inactive
[2020-06-04 12:45] VITALS: BP 118/76; PULSE 89; RESP 18; TEMP 36.7; O2SAT 95
== END 2020-06-04 12:47 | disposition skilled nursing facility (03) | DRG 281 ==
LOC: ER 23:48 → ICU 05-28 07:44 → CSU 05-28 14:45
PROVIDERS: Emergency Medicine; Internal Medicine; Admitting Provider Internal Medicine; Emergency Provider Family Medicine; PCP Family Medicine; Visit Provider Student in an Organized Health Care Education/Training Program
DX: I48.19 Other persistent atrial fibrillation (principal); I21.A1 Myocardial infarction type 2; I50.32 Chronic diastolic (congestive) heart failure; M62.82 Rhabdomyolysis; I48.91 Unspecified atrial fibrillation; Z79.01 Long term (current) use of anticoagulants; W10.9XXA Fall (on) (from) unspecified stairs and steps, initial encounter; E86.0 Dehydration; F41.8 Other specified anxiety disorders; E11.9 Type 2 diabetes mellitus without complications; I11.0 Hypertensive heart disease with heart failure; Z85.820 Personal history of malignant melanoma of skin; E66.9 Obesity, unspecified; Z68.35 Body mass index [BMI] 35.0-35.9, adult; F17.220 Nicotine dependence, chewing tobacco, uncomplicated; Z79.84 Long term (current) use of oral hypoglycemic drugs
CPT/HCPCS: 36415; 36416; 70450; 71045; 71260; 72125; 73562; 74177; 80048; 80053; 82550; 82962; 83605; 83735; 83880; 84443; 84484; 85025; 87426; 93005; 93306; 96365; 96366; 96372; 97110; 97116; 97161; 97530; 99291; G0378; J1815; J1940; J3490; J7030; Q9967

== ENCOUNTER → 2020-12-16 14:28 | Outpatient (BNVA) | payer MEDICARE, OTHER, SELFPAY | PROVIDERS: Family Provider Family Medicine; PCP Internal Medicine; Visit Provider Family Medicine | DX: I48.91 Unspecified atrial fibrillation (principal); I87.2 Venous insufficiency (chronic) (peripheral); I48.19 Other persistent atrial fibrillation; E11.65 Type 2 diabetes mellitus with hyperglycemia; I10 Essential (primary) hypertension; Z68.36 Body mass index [BMI] 36.0-36.9, adult; F17.220 Nicotine dependence, chewing tobacco, uncomplicated; Z71.89 Other specified counseling | CPT/HCPCS: 80053; 83036; 85025 ==

== ENCOUNTER → 2021-05-12 09:46 | Outpatient (BNVA) | payer MEDICARE, OTHER, SELFPAY | PROVIDERS: Family Provider Family Medicine; PCP Internal Medicine; Visit Provider Family Medicine | DX: I10 Essential (primary) hypertension; I48.91 Unspecified atrial fibrillation; E11.65 Type 2 diabetes mellitus with hyperglycemia | CPT/HCPCS: 80053; 83036; 85025 ==

== ENCOUNTER → 2021-08-21 09:16 | Outpatient (BNVA) | payer MEDICARE, OTHER, SELFPAY | PROVIDERS: Family Provider Family Medicine; PCP Family Medicine; Visit Provider Family Medicine | DX: E11.65 Type 2 diabetes mellitus with hyperglycemia (principal); I50.9 Heart failure, unspecified; I48.19 Other persistent atrial fibrillation | CPT/HCPCS: 82962 ==

== ENCOUNTER → 2021-11-10 10:19 | Outpatient (BNVA) | payer MEDICARE, OTHER, SELFPAY | PROVIDERS: Family Provider Family Medicine; PCP Family Medicine; Visit Provider Family Medicine | DX: I10 Essential (primary) hypertension (principal); E11.65 Type 2 diabetes mellitus with hyperglycemia | CPT/HCPCS: 80048; 83036 ==

== ENCOUNTER → 2022-01-19 11:32 | Outpatient (BNVA) | payer MEDICARE, OTHER, SELFPAY | PROVIDERS: Family Provider Family Medicine; PCP Family Medicine; Visit Provider Internal Medicine Cardiovascular Disease | DX: I48.19 Other persistent atrial fibrillation (principal); Z79.01 Long term (current) use of anticoagulants; I11.0 Hypertensive heart disease with heart failure; I50.9 Heart failure, unspecified; E13.65 Other specified diabetes mellitus with hyperglycemia; Z79.84 Long term (current) use of oral hypoglycemic drugs; I87.2 Venous insufficiency (chronic) (peripheral) | CPT/HCPCS: 99213 ==

== ENCOUNTER → 2022-02-09 11:00 | Outpatient (BNVA) | payer MEDICARE, OTHER, SELFPAY | PROVIDERS: Family Provider Family Medicine; PCP Family Medicine; Visit Provider Family Medicine | DX: E11.65 Type 2 diabetes mellitus with hyperglycemia (principal); I10 Essential (primary) hypertension; Z79.84 Long term (current) use of oral hypoglycemic drugs | CPT/HCPCS: 80053; 83036; 85025 ==

== ENCOUNTER → 2022-06-22 10:38 | Outpatient (BNVA) | payer MEDICARE, OTHER, SELFPAY | PROVIDERS: Family Provider Family Medicine; PCP Family Medicine; Visit Provider Family Medicine | DX: E11.65 Type 2 diabetes mellitus with hyperglycemia (principal); I10 Essential (primary) hypertension; Z79.01 Long term (current) use of anticoagulants | CPT/HCPCS: 80053; 83036; 85025 ==

== ENCOUNTER → 2022-07-13 14:59 | Outpatient (BNVA) | payer MEDICARE, OTHER, SELFPAY | PROVIDERS: Family Provider Family Medicine; PCP Family Medicine; Visit Provider Internal Medicine | DX: I48.19 Other persistent atrial fibrillation (principal); E13.9 Other specified diabetes mellitus without complications; I10 Essential (primary) hypertension; Z79.01 Long term (current) use of anticoagulants; Z79.84 Long term (current) use of oral hypoglycemic drugs | CPT/HCPCS: 99214 ==

== ENCOUNTER → 2023-01-13 13:02 | Outpatient (BNVA) | payer MEDICARE, OTHER, SELFPAY | PROVIDERS: Family Provider Family Medicine; PCP Family Medicine; Visit Provider Internal Medicine | DX: I48.19 Other persistent atrial fibrillation (principal); E13.9 Other specified diabetes mellitus without complications; I10 Essential (primary) hypertension; Z79.01 Long term (current) use of anticoagulants; Z79.84 Long term (current) use of oral hypoglycemic drugs | CPT/HCPCS: 99213 ==

== ENCOUNTER → 2023-01-25 10:09 | Outpatient (BNVA) | payer MEDICARE, OTHER, SELFPAY | PROVIDERS: Family Provider Family Medicine; PCP Family Medicine; Visit Provider Family Medicine | DX: E11.9 Type 2 diabetes mellitus without complications (principal); E11.65 Type 2 diabetes mellitus with hyperglycemia | CPT/HCPCS: 80053; 83036; 85025 ==

== ENCOUNTER 2023-02-05 17:15 | Emergency (ER) | payer MEDICARE, OTHER, SELFPAY ==
[2023-02-05 17:17] VITALS: BP 122/81; PULSE 105; RESP 18; TEMP 36.9; O2SAT 93; BMI 34.2
--- NOTE | 2023-02-05 17:29 | ECG_ITS ---
[facility] Test Date: 2023-02-05 Pat Name: Elia Parnell Department: Room: Gender: Male Phlebotomist Medical Lab Assistant: : 1945 Requested By: Deborah Mcarthur Order Number: [id number] Satnam MD: Julissa Kennedy M.D. Measurements Intervals [place] Rate: 100 P: 0 CA: 0 QRS: 47 QRSD: 98 T: 44 QT: 351 QTc: 454 Interpretive Statements ATRIAL FIBRILLATION WITH RAPID VENTRICULAR RESPONSE MINIMAL ST DEPRESSION [0.025+ mV ST DEPRESSION] ABNORMAL RHYTHM ECG Compared to ECG 05/28/2020 06:15:25 ST (T wave) deviation now present T-wave abnormality no longer present Possible ischemia no longer present Electronically Signed On 02-05-2023 20:50:24 RN CIRCULATING by Julissa Kennedy M.D. [email or web address]
[2023-02-05 17:31] VITALS: BP 153/112; PULSE 104; RESP 32; O2SAT 92
--- NOTE | 2023-02-05 17:35 | CTR_ITS ---
PROCEDURE INFORMATION: Exam: CT Head Without Contrast Exam date and time: 02/05/2023 5:49 PM Age: 77 years old Clinical indication: Injury or trauma; Fall; Blunt trauma (contusions or hematomas); Consciousness not specified TECHNIQUE: Imaging protocol: Computed tomography of the head without contrast. Radiation optimization: All CT scans at this facility use at least one of these dose optimization techniques: automated exposure control; mA and/or kV adjustment per patient size (includes targeted exams where dose is matched to clinical indication); or iterative reconstruction. REPORTING DATA: Count of CT and Cardiac NM exams in prior 12 months: This patient has received 0 known CTs and 0 known cardiac nuclear medicine studies in the 12 months prior to the current study. COMPARISON: No relevant prior studies available. RADIATION DOSE METRICS: Total DLP (mGy-cm): 1164.48 FINDINGS: Brain: No hemorrhage. No edema. Moderate diffuse cerebral atrophy and sequela of chronic small vessel ischemic disease. No mass effect. Cerebral ventricles: No ventriculomegaly. Paranasal sinuses: Visualized sinuses are unremarkable. No fluid levels. Mastoid air cells: Visualized mastoid air cells are well aerated. Bones/joints: Unremarkable. No acute fracture. Soft tissues: Unremarkable. CT/CT head wo con* [id number] IMPRESSION: No acute intracranial abnormality.
--- NOTE | 2023-02-05 17:35 | XRR_ITS ---
PROCEDURE INFORMATION: Exam: XR Chest Exam date and time: 02/05/2023 6:03 PM Age: 77 years old Clinical indication: Other: Weakness; Fall TECHNIQUE: Imaging protocol: Radiologic exam of the chest. Views: 1 view. COMPARISON: No relevant prior studies available. FINDINGS: Lungs: Unremarkable. No consolidation. Pleural spaces: Unremarkable. No pleural effusion. No pneumothorax. Heart/Mediastinum: Unremarkable. No cardiomegaly. Bones/joints: Unremarkable. XR/XR chest 1V portable [id number] IMPRESSION: No acute findings.
[2023-02-05] MEDS: sodium chloride 0.9% 1,000 ML 999 ML IV (17:42)
[2023-02-05] MEDS: dilTIAZem 5 mg/mL SDV 5 mL 10 MG IVP (17:42)
[2023-02-05 17:46] LABS: Basophils % 0.6 %; Eosinophils % 0.3 %; Hematocrit 40.5 % (37-53); Lymphocytes # 0.6 10^3/uL (0.8-4.8); Lymphocytes % 7.7 %; Mean Corpuscular HGB Conc 33.6 g/dL (30-55); Mean Corpuscular Hemoglobin 30.7 pg (27-33); Mean Corpuscular Volume 91.4 fl (82-101); Mean Platelet Volume 10.4 fL (7.4-10.4); Monocytes # 0.6 10^3/uL (0.2-0.9); Neutrophils # 6.04 10^3/uL (1.8-7.7); Nucleated Red Blood Cells % 0 %; Platelet Count 253 10^3/cmm (157-399); Red Blood Count 4.43 10^6/uL (3.85-5.65); Red Cell Distribution Width 13.1 % (12.1-15.1); White Blood Count 7.27 10^3/uL (3.29-11.43)
[2023-02-05 17:54] LABS: INR 1.98 (0.8-1.2)
[2023-02-05 17:55] LABS: Partial Thromboplastin Time 47.3 SECONDS (23.9-36.7)
[2023-02-05 18:00] LABS: Troponin(5th) Baseline 28 ng/L (0-15)
[2023-02-05 18:02] LABS: Alanine Aminotransferase 20 U/L (0-41); Albumin Level 4.2 g/dL (3.5-5.2); Alkaline Phosphatase 95 U/L (40-130); Anion Gap 18.1 (5-19); Aspartate Amino Transferase 21 U/L (0-40); Blood Urea Nitrogen 12 mg/dL (8-23); Calcium 9.4 mg/dL (8.5-10.5); Carbon Dioxide 24 mmol/L (22-29); Chloride 98 mmol/L (98-107); Creatine Phosphokinase 102 U/L (39-308); Globulin 3.2 g/dL (1.3-4.6); Glucose 185 mg/dL (65-115); Magnesium 1.8 mg/dL (1.7-2.3); Osmolality Calculated 287 mOsm/kg (285-295); Potassium 4.1 mmol/L (3.5-5.1); Sodium 136 mmol/L (136-145); Total Bilirubin 1.6 mg/dL (0.15-1.2); Total Protein 7.4 g/dL (6.6-8.7)
[2023-02-05 18:28] LABS: CKMB 2.2 ng/mL (0-10.4)
[2023-02-05 18:45] LABS: Amphetamines Screen Urine Negative (Negative); Barbiturates Screen Urine Negative (Negative); Benzodiazepines Screen Urine Negative (Negative); Cocaine Screen Urine Negative (Negative); Glucose Urine UA Trace (Normal); Ketones Urine 1+ (Negative); Opiate Screen Urine Negative (Negative); PCP Screen Urine Negative (Negative); Protein Urine 1+ (Negative); THC Screen Urine Negative (Negative); Urine Appearance Clear (CLEAR); Urine Color Yellow (Yellow); pH Urine 5 (5-7)
[2023-02-05 18:46] LABS: Blood Urine Neg (Negative); Nitrate Urine Negative (Negative)
[2023-02-05 18:47] LABS: Add Urine Culture? No; Add Urine Microscopic? YES; Amorphous Sediment Urine 1+ /hpf; Bilirubin Urine Neg (Negative); Leukocyte Esterase Urine Negative (Negative); Mucus Urine 2+ /hpf; Squamous Epithelial Cell Urine 0-4 /hpf (0-5); Urobilinogen Urine Neg (Negative); WBC Urine RARE /hpf (0-5)
[2023-02-05 19:00] VITALS: BP 137/88; BP 150/94
--- NOTE | 2023-02-05 19:10 | ED_ITS ---
HPI - Fall General: Chief Complaint: Fall Stated Complaint: fall Time Seen by Provider: 02/05/23 17:16 History of Present Illness: 77-year-old male with complex medical history including hypertension, hyperlipidemia, atrial fibrillation, diabetes and mood disorder presents emergency room via EMS due to fall. Patient further reveals that he fell because his legs were weak but denies any headache or loss of consciousness. Chest pain, shortness of breath, coughing or coughing up blood. According to EMS patient was found on the floor with sister at bedside. Patient did have melanie e nausea and vomiting and diarrhea at home. Patient was found to have atrial fibrillation with RVR with rate of 110 Associated symptoms-after fall: Denies abdominal pain, chest pain, confusion, difficulty walking, headache(s) or lightheadedness Review of Systems General: Reports: 10 or more systems reviewed and unremarkable except in HPI and below Card: Denies: chest pain, palpitations, irregular heart rhythm, edema, swelling of feet/ankles, lightheadedness, syncope, pre-syncope, dyspnea on exertion or leg pain with exertion Resp: Denies: dyspnea, productive cough, non-productive cough, wheezing or pain on inspiration GI: Reports: nausea, vomiting and diarrhea; Denies: abdominal pain, constipation, bloating, GI cramping, belching, excessive flatus or fecal incontinence Neuro: Denies: headache(s), numbness in extremities, weakness in extremities, sensory changes, lack of coordination, difficulty walking, frequent falls, confusion, Slurred speech present or difficulty communicating thoughts PFS ED PFSH: Medical History Anticoagulation adequate with anticoagulant therapy Anxiety and depression Arthritis Atrial fibrillation Atrial fibrillation with rapid ventricular response Diabetes Diabetes 1.5, managed as type 2 Enrolled in chronic care management Essential hypertension Hx of melanoma of skin Hypotension Obesity Plantar ulcer of left foot Rhabdomyolysis Squamous cell carcinoma, face Venous insufficiency Surgical History No pertinent past surgical history Family History Mother Diabetes CAD (coronary artery disease) Social History Smoking and tobacco/nicotine status: never used tobacco/nicotine Alcohol intake: never Substance/Drug Use: never Marital status: Physical Exam Const: COMMON NORMALS: no acute distress, average body habitus, patient oriented x3, no limitations, healthy appearing, alert and well nourished Eye: COMMON NORMALS: Equal, round and reactive pupils present, EOMs intact bilaterally, conjunctivae normal, no scleral icterus, no papilledema, normal v isual turcios by confrontation and fundi normal bilaterally CONJUNCTIVA: Yes conjunctivae normal PUPIL: Yes Equal, round and reactive pupils present DIRECT OPHTHALMOSCOPY: Yes no papilledema and Yes fundi normal bilaterally Neck/C-Spine: GENERAL: Yes normal visual inspection Chest: COMMONS NORMALS: normal inspection of the chest, normal palpation of entire chest wall, normal inspection of the breasts and normal palpation of the breasts Breast/axilla inspection: Yes normal inspection of the breasts BREAST/AXILLA PALPATION: Yes normal palpation of the breasts Resp: COMMON NORMALS: normal respiratory effort, No retractions, No use of accessory muscles, clear to auscultation bilaterally and percussion normal AUSCULTATION: clear to auscultation bilaterally PERCUSSION: percussion normal Cardio: COMMON NORMALS: S1 normal heart sound present and S2 normal heart sound present PALPATION: normal PMI RATE: tachycardic RHYTHM: abnormal rhythm irregularly irregular HEART SOUNDS: S1 normal heart sound present and S2 normal heart sound present Extremity: NARRATIVE EXTREMITY EXAM: abrasion to left leg and contusion to foot. no pain with palpation Neuro: COMMON NORMALS: patient oriented x3 SENSORIUM/ORIENTATION: Yes alert Psych: COMMON NORMALS: mental status grossly normal, Normal thought process present, cooperative, normal affect, speech normal, activity/motor behavior normal, denies hallucinations, denies homicidal ideation and denies suicidal ideation SPEECH: Yes normal speech THOUGHT PROCESS: Normal thought process present Course Reevaluation(s): Reevaluation #1: Upon reassessment patient appears to be stable within acute distress. I did recommend admission for further evaluation and observation patient declined admission at this time. I discussed the lab and CT finding with the patient. Consultations: Consultation #1: Discussed patient with Dr. Ramos and felt that patient does not meet admission criteria at this point. Vital Signs: Vital signs: Vital Signs Temperature 98.4 F 02/05/23 17:17 Pulse Rate 97 02/05/23 19:33 Respiratory Rate 16 02/05/23 19:33 Blood Pressure 131/76 02/05/23 19:33 Pulse Oximetry 93 02/05/23 19:33 Oxygen Delivery Me thod Room Air 02/05/23 17:17 MDM - Fall Medical Decision Making Patient made comfortable emergency room and had extensive work-up including CBC, CMP, CT scan x-ray and EKG. I reviewed past medical records and medical h istory. I reviewed patient current medication list. I discussed the CT and lab finding with the patient. I discussed patient with the hospitalist. Differential Diagnosis Likely syncope, dislocation of shoulder region, fracture of wrist, compression fracture, concussion with loss of consciousness and concussion without loss of consciousness Lab Data 02/05/23 17:30 02/05/23 17:30 Radiology Impressions Chest X-Ray 02/05/23 17:35 IMPRESSION: No acute findings. Head CT 02/05/23 17:35 IMPRESSION: No acute intracranial abnormality. Laboratory Results WBC 7.27 10^3/uL (3.29-11.43) 02/05/23 17:30 RBC 4.43 10^6/uL (3.85-5.65) 02/05/23 17:30 Hgb 13.60 g/dL (11.27-16.99) 02/05/23 17:30 Hct 40.5 % (37-53) 02/05/23 17:30 MCV 91.4 fl (82-101) 02/05/23 17:30 MCH 30.7 pg (27-33) 02/05/23 17:30 MCHC 33.6 g/dL (30-55) 02/05/23 17:30 RDW 13.1 % (12.1-15.1) 02/05/23 17:30 Plt Count 253 10^3/cmm (157-399) 02/05/23 17:30 MPV 10.4 fL (7.4-10.4) 02/05/23 17:30 Neut % (Auto) 83.0 % 02/05/23 17:30 Lymph % (Auto) 7.7 % 02/05/23 17:30 [place] % (Auto) 8.0 % 02/05/23 17:30 Eos % (Auto) 0.3 % 02/05/23 17:30 Baso % (Auto) 0.6 % 02/05/23 17:30 Neut # (Auto) 6.04 10^3/uL (1.8-7.7) 02/05/23 17:30 Lymph # (Auto) 0.6 10^3/uL (0.8-4.8) L 02/05/23 17:30 [place] # (Auto) 0.6 10^3/uL (0.2-0.9) 02/05/23 17:30 Eos # (Auto) 0.0 10^3/uL (0.0-0.8) 02/05/23 17:30 Baso # (Auto) 0.0 10^3/uL (0.0-0.1) 02/05/23 17:30 Nucleated RBC % (auto) 0 % 02/05/23 17:30 Nucleated RBCs # 0.0 /100WBC 02/05/23 17:30 PT 23.20 SECONDS (12.1-14.9) H 02/05/23 17:30 INR 1.98 (0.8-1.2) H 02/05/23 17:30 APTT 47.3 SECONDS (23.9-36.7) H 02/05/23 17:30 Sodium 136 mmol/L (136-145) 02/05/23 17:30 Potassium 4.1 mmol/L (3.5-5.1) 02/05/23 17:30 Chloride 98 mmol/L (98-107) 02/05/23 17:30 Carbon Dioxide 24 mmol/L (22-29) 02/05/23 17:30 Anion Gap 18.1 (5-19) 02/05/23 17:30 BUN 12 mg/dL (8-23) 02/05/23 17:30 Creatinine 1.0 mg/dL (0.7-1.2) 02/05/23 17:30 GFR Calculation Not Reportable 02/05/23 17:30 Glucose 185 mg/dL (65-115) H 02/05/23 17:30 Calculated Osmolality 287 mOsm/kg (285-295) 02/05/23 17:30 Calcium 9.4 mg/dL (8.5-10.5) 02/05/23 17:30 Magnesium 1.8 mg/dL (1.7-2.3) 02/05/23 17:30 Total Bilirubin 1.6 mg/dL (0.15-1.2) H 02/05/23 17:30 AST 21 U/L (0-40) 02/05/23 17:30 ALT 20 U/L (0-41) 02/05/23 17:30 Alkaline Phosphatase 95 U/L (40-130) 02/05/23 17:30 Creatine Kinase 102 U/L (39-308) 02/05/23 17:30 CK-MB (CK-2) 2.2 ng/mL (0-10.4) 02/05/23 17:30 CK-MB (CK-2) Rel Index % (0.0-5.3) 02/05/23 17:30 Troponin T Baseline 28 ng/L (0-15) H 02/05/23 17:30 Troponin T 120 Minute 25.43 ng/L (0-15) H 02/05/23 19:10 Delta Troponin T -2.57 ABS# (0-10) L 02/05/23 19:10 Total Protein 7.4 g/dL (6.6-8.7) 02/05/23 17:30 Albumin 4.2 g/dL (3.5-5.2) 02/05/23 17:30 Globulin 3.2 g/dL (1.3-4.6) 02/05/23 17:30 Urine Color Yellow (Yellow) 02/05/23 18:02 Urine Appearance Clear (CLEAR) 02/05/23 18:02 Urine pH 5 (5-7) 02/05/23 18:02 Ur Specific [place] 1.020 (1.005-1.030) 02/05/23 18:02 Urine Protein 1+ (Negative) H 02/05/23 18:02 Urine Glucose (UA) Trace (Normal) H 02/05/23 18:02 Urine Ketones 1+ (Negative) H 02/05/23 18:02 Urine Blood Neg (Negative) 02/05/23 18:02 Urine Nitrate Negative (Negative) 02/05/23 18:02 Urine Bilirubin Neg (Negative) 02/05/23 18: Urine Urobilinogen Neg mg/dL (Negative) 02/05/23 18: Ur Leukocyte Esterase Negative (Negative) 02/05/23 18:02 Urine RBC None /hpf (0-2) 02/05/23 18:02 Urine WBC Rare /hpf (0-5) 02/05/23 18:02 Ur Squamous Epith Cells 0-4 /hpf (0-5) H 02/05/23 18:02 Amorphous Sediment 1+ /hpf 02/05/23 18:02 Urine Bacteria None /hpf (NONE) 02/05/23 18:02 Urine Mucus 2+ /hpf 02/05/23 18:02 Urine Opiates Screen Negative ng/mL (Negative) 02/05/23 18:02 Ur Barbiturates Screen Negative ng/mL (Negative) 02/05/23 18:02 Ur Phencyclidine Scrn Negative ng/mL (Negative) 02/05/23 18:02 Ur Amphetamines Screen Negative ng/mL (Negative) 02/05/23 18:02 U Benzodiazepines Scrn Negative ng/mL (Negative) 02/05/23 18:02 Urine Cocaine Screen Negative ng/mL (Negative) 02/05/23 18:02 U Marijuana (THC) Screen Negative ng/mL (Negative) 02/05/23 18:02 XR interpretation done by ED provider, pending radiology final review EKG Data EKG 1: Interpretation: rate 100 afib with rvr with nonspecific ST depression. QRS interval 98 QT interval 351 Discharge Plan Discharge Patient Disposition: Home Clinical Impression: Atrial fibrillation, Fall, Hypertension, Weakness Condition: Stable Prescriptions: No Action (DME) Accu-Chek Rocio Plus test strp Strip See Rx Instructions .Route Qty: 100 3RF Rx Instructions: to use in accu-chek meter once daily 90 day supply (DME) blood-glucose meter [Accu-Chek Rocio Plus Meter] [facility] [place] See Rx Instructions .Route Qty: 1 0RF Rx Instructions: to use to check blood sugar once daily diltiazem HCl 300 mg capsule,extended release 24 hr 300 mg PO DAILY 90 Days Qty: 90 3RF valacyclovir [Valtrex] 1 gram tablet 1,000 mg PO Q8H 7 Days Qty: 21 0RF gabapentin 100 mg capsule 100 mg PO BID Qty: 180 2RF docusate sodium [Stool Softener] 100 mg capsule See Rx Instructions .ROUTE .COMPLEX Qty: 180 2RF Dose Instruction: TAKE ONE CAPSULE BY MOUTH TWICE DAILY Rx Instructions: TAKE ONE CAPSULE BY MOUTH TWICE DAILY triamcinolone acetonide 0.1 % cream 1 applic topical BID 30 Days Qty: 453.6 1RF metformin 500 mg tablet See Rx Instructions .ROUTE .COMPLEX Qty: 180 3RF Dose Instruction: TAKE ONE TABLET BY MOUTH TWICE DAILY Rx Instructions: TAKE ONE TABLET BY MOUTH TWICE DAILY Xarelto 20 mg tablet 20 mg PO DAILY Qty: 90 3RF furosemide 40 mg tablet See Rx Instructions .ROUTE .COMPLEX Qty: 60 3RF Dose Instruction: TAKE ONE TABLET BY MOUTH DAILY FOR 60 DAYS FOR swelling in LEGS Rx Instructions: TAKE ONE TABLET BY MOUTH DAILY FOR 60 DAYS FOR swelling in LEGS glipizide 2.5 mg tablet extended release 24hr See Rx Instructions .ROUTE .COMPLEX Qty: 180 2RF Dose Instruction: TAKE ONE TABLET BY MOUTH TWICE DAILY *no longer need TO split due TO LOWER strength* Rx Instructions: TAKE ONE TABLET BY MOUTH TWICE DAILY *no longer need TO split due TO LOWER strength* potassium chloride 10 mEq tablet extended release See Rx Instructions .ROUTE .COMPLEX Qty: 180 1RF Dose Instruction: TAKE ONE TABLET BY MOUTH TWICE DAILY Rx Instructions: TAKE ONE TABLET BY MOUTH TWICE DAILY Discharge Orders: Discharge ED (Routine); Ordered 02/05/23 Ordered By: Deborah Esquivel Referrals: Tayo Kirkland MD [Primary Care Provider] - Discharge Diet: Advance as tolerated Discharge Activity: Use walker/crutches as instructed Patient Instructions: Opioid Safety, Pain Management Coding Level of Care Code ED [employer] Technical Officer for Loretta Jason
[2023-02-05 19:33] VITALS: BP 131/76; PULSE 97; RESP 16; O2SAT 93
[2023-02-05 19:37] LABS: Troponin 5 2HR 25.43 ng/L (0-15); Troponin 5 2HR Delta -2.57 ABS# (0-10)
== END 2023-02-05 21:19 | disposition home or self-care (01) ==
PROVIDERS: Emergency Provider Family Medicine; PCP Family Medicine
DX: R53.1 Weakness (principal); I10 Essential (primary) hypertension; I48.91 Unspecified atrial fibrillation; Z79.84 Long term (current) use of oral hypoglycemic drugs; E13.9 Other specified diabetes mellitus without complications; E78.5 Hyperlipidemia, unspecified
CPT/HCPCS: 36415; 70450; 71045; 80053; 80306; 81001; 82550; 82553; 83735; 84484; 85025; 85610; 85730; 93005; 96374; 99285; J3490; J7030

== ENCOUNTER → 2023-05-20 10:22 | Outpatient (BNVA) | payer MEDICARE, OTHER, SELFPAY | PROVIDERS: PCP Family Medicine; Visit Provider Podiatrist Foot & Ankle Surgery | DX: L60.3 Nail dystrophy (principal); E11.65 Type 2 diabetes mellitus with hyperglycemia; G63 Polyneuropathy in diseases classified elsewhere; Z79.84 Long term (current) use of oral hypoglycemic drugs | CPT/HCPCS: 11721; 99203 ==

== ENCOUNTER → 2023-07-19 08:32 | Outpatient (BNVA) | payer MEDICARE, OTHER, SELFPAY | PROVIDERS: PCP Family Medicine; Visit Provider Nurse Practitioner Family | DX: I48.11 Longstanding persistent atrial fibrillation (principal); I11.0 Hypertensive heart disease with heart failure; I50.32 Chronic diastolic (congestive) heart failure; Z79.01 Long term (current) use of anticoagulants; L60.3 Nail dystrophy; E11.65 Type 2 diabetes mellitus with hyperglycemia; G63 Polyneuropathy in diseases classified elsewhere; Z79.84 Long term (current) use of oral hypoglycemic drugs; M25.371 Other instability, right ankle | CPT/HCPCS: 11721; 80053; 83036; 85025; 99214 ==

== ENCOUNTER → 2023-09-14 13:58 | Outpatient (BNVA) | payer MEDICARE, OTHER, SELFPAY | PROVIDERS: PCP Family Medicine; Visit Provider Nurse Practitioner Family | DX: E11.65 Type 2 diabetes mellitus with hyperglycemia (principal) | CPT/HCPCS: 81003; 87086 ==

== ENCOUNTER → 2023-10-08 07:36 | Outpatient (BNVA) | payer MEDICARE, OTHER, SELFPAY | PROVIDERS: PCP Family Medicine; Visit Provider Podiatrist Foot & Ankle Surgery | DX: L60.3 Nail dystrophy (principal); E11.65 Type 2 diabetes mellitus with hyperglycemia; G63 Polyneuropathy in diseases classified elsewhere; Z79.84 Long term (current) use of oral hypoglycemic drugs | CPT/HCPCS: 11055; 11721 ==

== ENCOUNTER → 2023-12-10 07:38 | Outpatient (BNVA) | payer MEDICARE, OTHER, SELFPAY | PROVIDERS: PCP Family Medicine; Visit Provider Podiatrist Foot & Ankle Surgery | DX: L60.3 Nail dystrophy (principal); E11.65 Type 2 diabetes mellitus with hyperglycemia; G63 Polyneuropathy in diseases classified elsewhere; Z79.84 Long term (current) use of oral hypoglycemic drugs | CPT/HCPCS: 11055; 11721 ==

== ENCOUNTER → 2023-12-28 10:20 | Outpatient (BNVA) | payer MEDICARE, OTHER, SELFPAY | PROVIDERS: PCP Family Medicine; Visit Provider Nurse Practitioner Family | DX: I48.11 Longstanding persistent atrial fibrillation (principal); I11.0 Hypertensive heart disease with heart failure; I50.32 Chronic diastolic (congestive) heart failure; I87.2 Venous insufficiency (chronic) (peripheral); Z79.01 Long term (current) use of anticoagulants | CPT/HCPCS: 99214 ==

== ENCOUNTER → 2024-01-24 11:47 | Outpatient (BNVA) | payer MEDICARE, OTHER, SELFPAY | PROVIDERS: PCP Family Medicine; Visit Provider Family Medicine | DX: E11.65 Type 2 diabetes mellitus with hyperglycemia (principal) | CPT/HCPCS: 80053; 83036; 85025 ==

== ENCOUNTER → 2024-03-01 09:32 | Outpatient (BNVA) | payer MEDICARE, OTHER, SELFPAY | PROVIDERS: PCP Family Medicine; Visit Provider Podiatrist Foot & Ankle Surgery | DX: L60.3 Nail dystrophy (principal); E11.65 Type 2 diabetes mellitus with hyperglycemia; G63 Polyneuropathy in diseases classified elsewhere; Z79.84 Long term (current) use of oral hypoglycemic drugs | CPT/HCPCS: 11721 ==

== ENCOUNTER → 2024-07-04 09:38 | Outpatient (BNVA) | payer MEDICARE, OTHER, SELFPAY | PROVIDERS: PCP Family Medicine; Visit Provider Podiatrist Foot & Ankle Surgery | DX: E11.8 Type 2 diabetes mellitus with unspecified complications (principal); L60.3 Nail dystrophy; L84 Corns and callosities; E11.65 Type 2 diabetes mellitus with hyperglycemia; G63 Polyneuropathy in diseases classified elsewhere; Z79.84 Long term (current) use of oral hypoglycemic drugs | CPT/HCPCS: 11056; 11721; 99213 ==

== ENCOUNTER → 2024-07-10 12:59 | Outpatient (BNVA) | payer MEDICARE, OTHER, SELFPAY | PROVIDERS: PCP Family Medicine; Visit Provider Family Medicine | DX: E13.9 Other specified diabetes mellitus without complications (principal); I10 Essential (primary) hypertension | CPT/HCPCS: 80053; 83036 ==

== ENCOUNTER → 2024-07-17 12:30 | Outpatient (BNVA) | payer MEDICARE, OTHER, SELFPAY | PROVIDERS: PCP Family Medicine; Visit Provider Internal Medicine | DX: I48.11 Longstanding persistent atrial fibrillation (principal); Z79.01 Long term (current) use of anticoagulants; R00.2 Palpitations; R06.09 Other forms of dyspnea; I10 Essential (primary) hypertension; E13.9 Other specified diabetes mellitus without complications; Z79.84 Long term (current) use of oral hypoglycemic drugs | CPT/HCPCS: 99213 ==

== ENCOUNTER 2024-08-28 13:32 | Outpatient (CLI) | payer MEDICARE, OTHER, SELFPAY ==
--- NOTE | 2024-08-28 14:15 | US_ITS ---
WS: [id number] TESTICULAR ULTRASOUND HISTORY: progressive painless swelling of scrotum COMPARISON: None available. TECHNIQUE: Real-time and color Doppler imaging utilized to perform a testicular ultrasound. Right testicle: 4.0 cm x 1.9 cm x 2.6 cm. Normal size and echogenicity. No mass or torsion. Normal color Doppler is present throughout. Systolic and diastolic velocities are both present. Small simple hydrocele. Right epididymis: Enlarged heterogeneous epididymis. No increased vascularity. There is marked scrotal wall thickening and edema. Left testicle: 3.5 cm x 2.5 cm x 2.8 cm. Normal size and echogenicity. No mass or torsion. Normal color Doppler is present throughout. Systolic and diastolic velocities are both present. Moderate-sized simple hydrocele. Left epididymis: Enlarged heterogeneous epididymis without increased vascularity. Marked scrotal wall thickening. US/US scrotum [id number] IMPRESSION: 1. No testicular mass or torsion. 2. No orchitis. 3. There is diffuse scrotal wall edema. 4. Bilateral simple hydroceles, LEFT greater than RIGHT. 5. Heterogeneous, enlarged epididymides without increased vascularity. Suggest morro of chronic epididymitis.
== END 2024-08-28 13:33 | disposition home or self-care (01) ==
LOC: RAD 13:34
PROVIDERS: PCP Family Medicine; Visit Provider Family Medicine
DX: N50.89 Other specified disorders of the male genital organs (principal); N43.3 Hydrocele, unspecified; R60.0 Localized edema
CPT/HCPCS: 76870

== ENCOUNTER → 2024-09-05 11:03 | Outpatient (BNVA) | payer MEDICARE, OTHER, SELFPAY | PROVIDERS: PCP Family Medicine; Visit Provider Family Medicine | DX: I10 Essential (primary) hypertension (principal); I50.32 Chronic diastolic (congestive) heart failure | CPT/HCPCS: 80048 ==

== ENCOUNTER → 2024-10-18 08:28 | Outpatient (BNVA) | payer MEDICARE, OTHER, SELFPAY | PROVIDERS: PCP Family Medicine; Visit Provider Nurse Practitioner Family | DX: R30.0 Dysuria (principal) | CPT/HCPCS: 81000 ==

== ENCOUNTER → 2024-11-09 08:43 | Outpatient (BNVA) | payer MEDICARE, OTHER, SELFPAY | PROVIDERS: PCP Family Medicine; Visit Provider Podiatrist Foot & Ankle Surgery | DX: E11.65 Type 2 diabetes mellitus with hyperglycemia (principal); L60.3 Nail dystrophy; L84 Corns and callosities; G63 Polyneuropathy in diseases classified elsewhere; B35.3 Tinea pedis; Z79.84 Long term (current) use of oral hypoglycemic drugs | CPT/HCPCS: 11055; 11721; 99213 ==

== ENCOUNTER → 2024-11-13 10:14 | Outpatient (BNVA) | payer MEDICARE, OTHER, SELFPAY | PROVIDERS: PCP Family Medicine; Visit Provider Nurse Practitioner Family | DX: I48.20 Chronic atrial fibrillation, unspecified (principal); Z79.01 Long term (current) use of anticoagulants; I10 Essential (primary) hypertension; E13.9 Other specified diabetes mellitus without complications; Z79.84 Long term (current) use of oral hypoglycemic drugs | CPT/HCPCS: 80053; 83036; 85025; 99213 ==

== ENCOUNTER → 2025-01-25 08:52 | Outpatient (BNVA) | payer MEDICARE, OTHER, SELFPAY | PROVIDERS: PCP Family Medicine; Visit Provider Podiatrist Foot & Ankle Surgery | DX: E11.8 Type 2 diabetes mellitus with unspecified complications (principal); L60.3 Nail dystrophy; L84 Corns and callosities; E11.65 Type 2 diabetes mellitus with hyperglycemia; G63 Polyneuropathy in diseases classified elsewhere; B35.3 Tinea pedis; Z79.84 Long term (current) use of oral hypoglycemic drugs | CPT/HCPCS: 11055; 11721 ==

== ENCOUNTER → 2025-02-08 11:08 | Outpatient (BNVA) | payer MEDICARE, OTHER, SELFPAY | PROVIDERS: PCP Family Medicine; Visit Provider Family Medicine | DX: I10 Essential (primary) hypertension (principal); E13.9 Other specified diabetes mellitus without complications; Z79.01 Long term (current) use of anticoagulants | CPT/HCPCS: 80053; 85025 ==

== ENCOUNTER 2025-03-20 13:24 | Inpatient (IN) | payer MEDICARE, OTHER, SELFPAY ==
[2025-03-20] VITALS (30 sets, daily range): BP systolic 125–156; BP diastolic 67–92; PULSE 78–127; RESP 14–27; TEMP 36.9–37.9; O2SAT 91–98; BMI 38.5
--- NOTE | 2025-03-20 13:29 | XR_ITS ---
WS: [id number] Portable AP upright chest, 03/20/2025 Clinical Data: Weakness Comparison: Portable chest, 02/06/2020. Findings: No nodules, masses or effusions are seen. The heart is enlarged. The pulmonary vascularity is not increased. No pneumonia or pneumothorax is seen. The aortic arch and descending thoracic aorta show tortuosity. XR/XR chest 1V portable [id number] Impression: Cardiomegaly and atherosclerosis.
--- NOTE | 2025-03-20 13:30 | CT_ITS ---
WS: [id number] CT HEAD NONCONTRAST HISTORY: Multiple falls TECHNIQUE: Contiguous axial imaging performed through the brain. Bone and soft tissue windows. Sagittal and coronal reformats reviewed. All CT scans at [facility] use at least one of these dose optimization techniques: automated exposure control; mA and/or kV adjustment per patient size (includes targeted exams where dose is matched to clinical indication); or iterative reconstruction. DLP: 1183.38 mGy.cm COMPARISON: 02/05/2023 No acute intracranial hemorrhage, midline shift or mass effect. Moderate atrophy and small vessel changes. No prior large territory infarct. Mild bilateral cerebellar atrophy. Ventricles: Normal size with no hydrocephalus. No inferior displacement of the cerebellar tonsils. Paranasal sinuses: As visualized are clear. Mastoid air cells: Well pneumatized. Calvarium and scalp: Skull is intact with no soft tissue edema or swelling. Mild atherosclerosis intracranial carotid arteries. CT/CT head wo con* [id number] IMPRESSION: 1. No acute intracranial hemorrhage or edema. 2. Moderate cerebral atrophy and small vessel changes. 3. No skull fracture.
[2025-03-20 14:00] LABS: Hematocrit 37.9 % (37-53); Hemoglobin 12.70 g/dL (11.27-16.99); Mean Corpuscular HGB Conc 33.5 g/dL (30-55); Mean Corpuscular Hemoglobin 30.6 pg (27-33); Mean Corpuscular Volume 91.3 fl (82-101); Nucleated Red Blood Cells % 0 %; Platelet Count 175 10^3/cmm (157-399); Red Blood Count 4.15 10^6/uL (3.85-5.65); White Blood Count 7.74 10^3/uL (3.29-11.43)
[2025-03-20 14:12] LABS: Lactic Sepsis W/Reflex 2.4 mmol/L (0.5-2.2)
--- NOTE | 2025-03-20 14:12 | ECG_ITS ---
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
[2025-03-20 14:13] LABS: Troponin(5th) Baseline 40 ng/L (0-15)
[2025-03-20 14:21] LABS: Alanine Aminotransferase 15 U/L (0-41); Albumin Level 3.8 g/dL (3.5-5.2); Alkaline Phosphatase 98 U/L (40-130); Anion Gap 15.0 (5-19); Aspartate Amino Transferase 25 U/L (0-40); Blood Urea Nitrogen 14 mg/dL (8-23); Calcium 8.9 mg/dL (8.5-10.5); Carbon Dioxide 25 mmol/L (22-29); Chloride 97 mmol/L (98-107); Globulin 3.2 g/dL (1.3-4.6); Glucose 249 mg/dL (65-115); Magnesium 1.7 mg/dL (1.7-2.3); NT Pro B Type Natriuretic Pept 941 pg/mL (0-450); Osmolality Calculated 285 mOsm/kg (285-295); Potassium 4.0 mmol/L (3.5-5.1); Sodium 133 mmol/L (136-145); Thyroid Stimulating Hormone 3.15 uIU/mL (0.27-4.20); Total Protein 7.0 g/dL (6.6-8.7)
--- NOTE | 2025-03-20 15:20 | ED_ITS ---
HPI - Weakness 2 General: Chief complaint: Weakness Stated complaint: fall x 4 Time Seen by Provider: 03/20/25 13:25 History of Present Illness: 79-year-old male presents emergency room with multiple falls in the last 4 days. Patient has a history of diabetes mellitus and congestive heart failure. He has known atrial fibrillation and is on anticoagulation. He denies any chest pain or shortness of breath at this time. He has had multiple falls frequently is able to get himself up but gets nauseous and vomits afterwards. Associated symptoms: Denies chest pain, chills, dysuria or fever(s) Related Data Previous Rx's ?Medication ?Instructions ?Recorded blood sugar diagnostic (Accu-Chek #100 ea 05/12/21 Rocio Plus test strips) blood-glucose meter (Accu-Chek #1 ea 05/12/21 Rocio Plus Meter) diabetic shoes #1 ea 05/06/23 diltiazem HCl 300 mg See Rx Instructions .Route 0 06/13/24 capsule,extended release 24 hr .COMPLEX #90 caps glipizide 2.5 mg tablet, extended See Rx Instructions .Route 06/13/24 release 24 hr .COMPLEX #180 tabs docusate sodium 100 mg capsule See Rx Instructions .Ro guillermo 07/03/24 .COMPLEX #180 caps diabetic shoes with 3 inserts #1 ea 07/04/24 metformin 500 mg tablet See Rx Instructions .Route 0 07/11/24 .COMPLEX #180 tabs furosemide 40 mg tablet 40 mg PO DAILY 60 days #60 t abs 08/15/24 rivaroxaban 20 mg tablet (Xarelto) See Rx Instructions .Route 08/30/24 .COMPLEX #90 tabs clotrimazole-betamethasone 1 1 applic topical BID #45 grams 11/09/24 %-0.05 % topical cream tamsulosin 0.4 mg capsule See Rx Instructions .Route 0 11/13/24 .COMPLEX #90 caps potassium chloride 10 mEq See Rx Instructions .Route 0 11/22/24 tablet,extended release .COMPLEX #180 tabs clindamycin HCl 300 mg capsule 300 mg PO Q12H 7 days # 14 caps 03/26/25 (Cleocin HCl) Allergies Allergy/AdvReac Type Severity Reaction Status Date / Time Penicillins Allergy Severe ALGY-Bliste Verified 10/30/25 08:54 r Review of Systems 2 Const: Denies: fever(s) or chills Card: Reports: palpitations and irregular heart rhythm; Denies: chest pain Resp: Denies: dyspnea GI: Denies: abdominal pain : Denies: dysuria, urinary frequency or urinary urgency Musc: Denies: neck pain or back pain Skin/Breast: Denies: rash PFSH ED 2 PFSH: Medical History Atrial fibrillation with rapid ventricular response Rhabdomyolysis Hypotension Arthritis Enrolled in chronic care management Diabetes Venous insufficiency Anxiety and depression Squamous cell carcinoma, face Plantar ulcer of left foot Anticoagulation adequate with anticoagulant therapy Diabetes 1.5, managed as type 2 Obesity Essential hypertension Atrial fibrillation Hx of melanoma of skin Surgical History No pertinent past surgical history Family History Mother Diabetes CAD (coronary artery disease) Social History Smoking and tobacco/nicotine status: never used tobacco/nicotine Alcohol intake: never Substance/Drug Use: never Marital status: Physical Exam 2 Const: GENERAL APPEARANCE: cooperative ORIENTATION/CONSCIOUSNESS: Yes awake, Yes oriented to person, Yes oriented to place and Yes oriented to time HENMT: COMMON NORMALS: normocephalic, atraumatic and hearing grossly normal bilaterally HEAD & SCALP: normocephalic and atraumatic Resp: COMMON NORMALS: normal respiratory effort, No retractions, No use of accessory muscles and clear to auscultation bilaterally AUSCULTATION: clear to auscultation bilaterally Cardio: COMMON NORMALS: No murmurs present (Cardio) RATE: tachycardic R HYTHM: abnormal rhythm irregularly irregular GI: COMMON NORMALS: Soft to palpation and No hepatosplenomegaly present A USCULTATION: Yes normoactive bowel sounds PALPATION: Yes Soft to palpation, No Tenderness to palpation present (GI), No Guarding due to palpation present (GI) and Yes No hepatosplenomegaly present Extremity: COMMON NORMALS: normal to inspection, capillary refill normal, no clubbing, cyanosis or edema, no calf tenderness and no pedal edema Neuro: SENSORIUM/ORIENTATION: Yes oriented to person, Yes oriented to place and Yes oriented to time Skin: COMMON NORMALS: no rashes or lesions noted GENERAL SKIN EXAM: no rashes or lesions noted Course 2 Vital Signs: Vital signs: Vital Signs Temperature 98.2 F 03/26/25 18:36 Pulse Rate 96 03/26/25 18:36 Respiratory Rate 20 H 03/26/25 18:36 Blood Pressure 138/79 03/26/25 18:36 Pulse Oximetry 92 03/26/25 18:36 Oxygen Delivery Me thod Nasal Cannula 03/26/25 03:59 Oxygen Flow Rate 2 03/25/25 05:50 MDM - Weakness Medical Decision Making 79-year-old male presents emergency room with frequent falls. He has initial EKG showing a heart rate of 112 intermittently however with even sitting up in bed his heart rate goes up into the 130s and 140s. He was given diltiazem IV and then started on a diltiazem drip with improved rate control. Discussed with hospitalist will admit for A-fib RVR now maintaining his rate well-controlled on Cardizem. Continue his anticoagulation. Imaging done in the emergency room CT head was negative chest x-ray shows cardiomegaly but no effusions or increased pulmonary vascular markings. Labs and EKG imaging all reviewed as found on the chart. Patient is COVID-positive. Maintaining oxygen saturations on room air. His white count is normal note that his lactic acid is 2.4 suspect this is due to an part to his metformin additionally to his poor perfusion from his atrial fibrillation. Serial troponins are negative. Medical Records I reviewed the patient's medical records. Lab Data I reviewed the patient's lab results. 03/26/25 04:07 03/26/25 04:07 Radiology Impressions Chest X-Ray 03/20/25 13:29 Impression: Cardiomegaly and atherosclerosis. Head CT 03/20/25 13:30 IMPRESSION: 1. No acute intracranial hemorrhage or edema. 2. Moderate cerebral atrophy and small vessel changes. 3. No skull fracture. 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 The lunate bone appear to be small or malrotated, suggesting underlying chronic internal derangement. Mild degenerative osteoarthritis of the 1st metacarpophalangeal joint, interphalangeal joint of the right thumb, proximal and distal interphalangeal joint of the 2nd through 5th finger. Osteopenia. Extensive arterial vascular calcification. 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 The lunate bone appear to be small or malrotated, suggesting underlying chronic internal derangement. Mild degenerative osteoarthritis of the 1st metacarpophalangeal joint, interphalangeal joint of the right thumb. Osteopenia. Extensive arterial vascular calcification. Laboratory Results WBC 7.74 10^3/uL (3.29-11.43) 03/20/25 13:44 RBC 4.15 10^6/uL (3.85-5.65) 03/20/25 13:44 Hgb 12.70 g/dL (11.27-16.99) 03/20/25 13:44 Hct 37.9 % (37-53) 03/20/25 13:44 MCV 91.3 fl (82-101) 03/20/25 13:44 MCH 30.6 pg (27-33) 03/20/25 13:44 MCHC 33.5 g/dL (30-55) 03/20/25 13:44 RDW 14.0 % (12.1-15.1) 03/20/25 13:44 Plt Count 175 10^3/cmm (157-399) 03/20/25 13:44 MPV 9.7 fL (7.4-10.4) 03/20/25 13:44 Neut % (Auto) 81.0 % 03/20/25 13:44 Lymph % (Auto) 8.0 % 03/20/25 13:44 [place] % (Auto) 9.8 % 03/20/25 13:44 Eos % (Auto) 0.3 % 03/20/25 13:44 Baso % (Auto) 0.5 % 03/20/25 13:44 Neut # (Auto) 6.27 10^3/uL (1.8-7.7) 03/20/25 13:44 Lymph # (Auto) 0.6 10^3/uL (0.8-4.8) L 03/20/25 13:44 [place] # (Auto) 0.8 10^3/uL (0.2-0.9) 03/20/25 13:44 Eos # (Auto) 0.0 10^3/uL (0.0-0.8) 03/20/25 13:44 Baso # (Auto) 0.0 10^3/uL (0.0-0.1) 03/20/25 13:44 Nucleated RBC % (auto) 0 % 03/20/25 13:44 Nucleated RBCs # 0.0 /100WBC 03/20/25 13:44 Sodium 133 mmol/L (136-145) L 03/20/25 13:44 Potassium 4.0 mmol/L (3.5-5.1) 03/20/25 13:44 Chloride 97 mmol/L (98-107) L 03/20/25 13:44 Carbon Dioxide 25 mmol/L (22-29) 03/20/25 13:44 Anion Gap 15.0 (5-19) 03/20/25 13:44 BUN 14 mg/dL (8-23) 03/20/25 13:44 Creatinine 0.9 mg/dL (0.7-1.2) 03/20/25 13:44 GFR Calculation Not Reportable 03/20/25 13:44 Glucose 249 mg/dL (65-115) H 03/20/25 13:44 Calculated Osmolality 285 mOsm/kg (285-295) 03/20/25 13:44 Lactic Acid 2.4 mmol/L (0.5-2.2) H 03/20/25 13:44 Lactic Acid (Sepsis) 2.4 mmol/L (0.5-2.2) H 03/20/25 15:46 Calcium 8.9 mg/dL (8.5-10.5) 03/20/25 13:44 Phosphorus 2.4 mg/dL (2.5-4.5) L 03/20/25 13:44 Magnesium 1.7 mg/dL (1.7-2.3) 03/20/25 13:44 Magnesium Cancelled 03/20/25 13:44 Total Bilirubin 2.0 mg/dL (0.15-1.2) H 03/20/25 13:44 AST 25 U/L (0-40) 03/20/25 13:44 ALT 15 U/L (0-41) 03/20/25 13:44 Alkaline Phosphatase 98 U/L (40-130) 03/20/25 13:44 Troponin T Baseline 40 ng/L (0-15) H 03/20/25 13:44 Troponin T 60 Minute 39.62 ng/L (0-15) H 03/20/25 14:30 Delta Troponin T -0.38 ABS# (0-10) L 03/20/25 14:30 C-React Prot High Sens 5.320 mg/dL (0.0-0.3) H 03/20/25 13:44 NT-Pro-B Natriuret Pep 941 pg/mL (0-450) H 03/20/25 13:44 Total Protein 7.0 g/dL (6.6-8.7) 03/20/25 13:44 Albumin 3.8 g/dL (3.5-5.2) 03/20/25 13:44 Globulin 3.2 g/dL (1.3-4.6) 03/20/25 13:44 Procalcitonin 0.18 ng/mL (0-0.5) 03/20/25 13:44 TSH 3.15 uIU/mL (0.27-4.20) 03/20/25 13:44 Urine Color Yellow (Yellow) 03/20/25 15:10 Urine Appearance Slightly cloudy (CLEAR) 03/20/25 15:10 Urine pH Not Reportable 03/20/25 15:10 Ur Specific Lilly Not Reportable 03/20/25 15:10 Urine Protein Not Reportable 03/20/25 15:10 Urine Glucose (UA) Not Reportable 03/20/25 15:10 Urine Ketones Not Reportable 03/20/25 15:10 Urine Blood Not Reportable 03/20/25 15:10 Urine Nitrate Not Reportable 03/20/25 15:10 Urine Bilirubin Not Reportable 03/20/25 15:10 Urine Urobilinogen Not Reportable 03/20/25 15:10 Ur Leukocyte Esterase Not Reportable 03/20/25 15:10 Urine RBC None /hpf (0-2) 03/20/25 15:10 Urine WBC Rare /hpf (0-5) 03/20/25 15:10 Ur Squamous Epith Cells None /hpf (0-5) 03/20/25 15:10 Amorphous Sediment Not Reportable 03/20/25 15:10 Urine Bacteria Trace /hpf (NONE) 03/20/25 15:10 Influenza A (PCR) Negative (Negative) 03/20/25 14:14 Influenza Type B (PCR) Negative (Negative) 03/20/25 14:14 RSV (PCR) Negative (Negative) 03/20/25 14:14 SARS-CoV-2 (PCR) Positive (Negative) A 03/20/25 14:14 All radiology interpretation(s) finalized by discharge EKG Data EKG 1: I personally reviewed and interpreted this EKG as follows: Interpretation: EKG 03/20/2025 1412 atrial fibrillation rapid ventricular sponsor rate of [address] changes noted nonspecific ST depression likely rate related in the lateral leads. EKG 2: I personally reviewed and interpreted this EKG as follows: Discharge Plan Discharge Patient Disposition: Admitted As Inpatient Admit Provider: Jonel Villalba Clinical Impression: Atrial fibrillation, Diabetes, COVID, Diabetes 1.5, managed as type 2 Condition: Stable Coding Level of Care Code ED Commercial Maintenance Technician for Marcelag Casie
[2025-03-20 15:24] LABS: Respiratory Syncytial Virus Ce NEGATIVE (Negative)
[2025-03-20 15:33] LABS: SARS-CoV-2 PCR Positive (Negative)
[2025-03-20 15:38] LABS: Reflex Lactate Order REFLEX LACTIC ORDERD
[2025-03-20 15:48] LABS: UA Manual Slide Review YES
[2025-03-20] MEDS: dilTIAZem 5 mg/mL SDV 5 mL 10 MG IVP (15:53)
[2025-03-20] MEDS: DILTIAZEM HCL/D5W 125 MG/125 ML BAG IV (15:53)
[2025-03-20 16:17] LABS: Lactic Acid level (Lactate) 2.4 mmol/L (0.5-2.2)
--- NOTE | 2025-03-20 16:21 | P.HP_ITS ---
Providers/Chief Complaint 2 Admitting Physician: Brenna Carpenter APRN, and Girish Rasheed MD Primary Care Provider: Tayo Kirkland MD Chief Complaint: fall x 4 History of Present Illness Elia Parnell is a 79 year old male with prior medical history of heart failure, DM 1.5 managed as type II, neuropathic ulcers, falls, tinea pedis, obesity, atrial fibrillation on anticoagulation, and venous insufficiency presenting with complaints of falls. Patient reports that he uses a walker in his home and a cane outside. He has a sister that comes to help him Wednesday, Wednesday, and Wednesday. Today, he fell for what he thinks was the 3rd or 4th time today. Denies loss of conciousness. Each time he gets up after falling, he feels nauseous and sometimes vomits. He has complaints of sore throat, congestion, and cough. He has not taken anything but otc advil. 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 He reports the facility had asbestos in the pipe construction. Denies alcohol, smoking, or any illicit drug use. In the ED, CBC unremarkable. Glucose 249. NA 133, CL 97. Lactic 2.4 > 2.4. Troponin 40 > 39.62. BNP 941. COVID positive. CT head; no acute intercranial abnormalities or fracture, see full results. CXR; cardiomegaly and atherosclerosis. Will admit to the hospitalist service for further evaluation and treatment. Review of Systems 2 Const: Denies: fever(s) ENMT: Reports: throat pain Card: Reports: swelling of feet/ankles and dyspnea on exertion; Denies: orthopnea Resp: Reports: productive cough and chest congestion GI: Reports: nausea and vomiting : Reports: urinary frequency Musc: Reports: muscle weakness Luis Alberto/Lymph: Denies: easy bruising or easy bleeding All/Imm: Denies: seasonal rhinorrhea Medications/Allergies Home Medications ?Medication ?Instructions ?Recorded ?Confirmed ?Last Taken ?Type blood sugar diagnostic (Accu-Chek #100 ea 05/12/21 Unknown Rx Rocio Plus test strips) blood-glucose meter (Accu-Chek #1 ea 05/12/21 03/20/25 Unknown Rx Rocio Plus Meter) diabetic shoes #1 ea 05/06/23 03/20/25 Unkn own Rx diltiazem HCl 300 mg See Rx Instructions .Route 0 06/13/24 03/20/25 03/20/25 Rx capsule,extended release 24 hr .COMPLEX #90 caps glipizide 2.5 mg tablet, extended See Rx Instructions .Route 06/13/24 03/20/25 03/20/25 Rx release 24 hr .COMPLEX #180 tabs docusate sodium 100 mg capsule See Rx Instructions .Ro guillermo 07/03/24 03/20/25 03/20/25 Rx .COMPLEX #180 caps diabetic shoes with 3 inserts #1 ea 07/04/24 03/20/25 Unknown Rx metformin 500 mg tablet See Rx Instructions .Route 0 07/11/24 03/20/25 03/20/25 Rx .COMPLEX #180 tabs furosemide 40 mg tablet 40 mg PO DAILY 60 days #60 t abs 08/15/24 03/20/25 03/20/25 Rx rivaroxaban 20 mg tablet (Xarelto) See Rx Instructions .Route 08/30/24 03/20/25 03/19/25 Rx .COMPLEX #90 tabs clotrimazole-betamethasone 1 1 applic topical BID #45 grams 11/09/24 03/20/25 Unknown Rx %-0.05 % topical cream tamsulosin 0.4 mg capsule See Rx Instructions .Route 0 11/13/24 03/20/25 03/20/25 Rx .COMPLEX #90 caps potassium chloride 10 mEq See Rx Instructions .Route 0 11/22/24 03/20/25 03/20/25 Rx tablet,extended release .COMPLEX #180 tabs Allergies Allergy/AdvReac Type Severity Reaction Status Date / Time Penicillins Allergy Severe ALGY-Bliste Verified 01/25/25 08:54 r PFSH Acute 2 PFSH: Medical History Atrial fibrillation with rapid ventricular response Rhabdomyolysis Hypotension Arthritis Enrolled in chronic care management Diabetes Venous insufficiency Anxiety and depression Squamous cell carcinoma, face Plantar ulcer of left foot Anticoagulation adequate with anticoagulant therapy Diabetes 1.5, managed as type 2 Obesity Essential hypertension Atrial fibrillation Hx of melanoma of skin Surgical History No pertinent past surgical history Family History Mother Diabetes CAD (coronary artery disease) Social History Smoking and tobacco/nicotine status: never used tobacco/nicotine Alcohol intake: never Substance/Drug Use: never Marital status: Vitals/I&O/Wt Last Vital Signs Temp 98.8 F 03/20/25 13:37 Pulse 127 H 03/20/25 15:13 Resp 14 03/20/25 13:37 BP 137/92 03/20/25 15:13 Pulse Ox 92 03/20/25 13:37 O2 Del Method Room Air 03/20/25 13:37 Weight last 48 hrs Weight 127.006 kg Physical Exam 2 Const: COMMON NORMALS: patient oriented x3 HENMT: COMMON NORMALS: normocephalic HEAD & SCALP: normocephalic OTHER: Very [place] Chest: CHEST: Yes Symmetrical chest wall rise Resp: EFFORT & INSPECTION: Yes decreased respiratory effort Cardio: OTHER: Irregularly irregular GI: COMMON NORMALS: non-tender, No hepatosplenomegaly present and no masses AUSCULTATION: Yes normoactive bowel sounds PALPATION: Yes Soft to palpation and Yes No hepatosplenomegaly present Extremity: COMMON NORMALS: no clubbing, cyanosis or edema Neuro: COMMON NORMALS: patient oriented x3 Psych: COMMON NORMALS: mental status grossly normal and cooperative Skin: OTHER: Small skin tears, sores in various healing stages likely s/t to falls Data 03/20/25 13:44 03/20/25 13:44 Micro: Microbiology 03/20/25 13:47 Blood Culture - Preliminary Blood SPECIMEN COLLECTED 03/20/25 13:44 Blood Culture - Preliminary Blood SPECIMEN COLLECTED A&P Assessment and plan 1. Falls: Patient uses a walker and a cane at times He reports he has fallen 3-4 times recently, denies confusion or loss of consciousness CT head; no acute intercranial abnormalities or fracture, see full results CXR; cardiomegaly and atherosclerosis Follows precautions PT/OT prior to discharge Bedrest Treating active infection?code 2. COVID: Without leukocytosis, WBC WNL at 7.74 98% on room air SARS Cov 2 positive CXR; cardiomegaly and atherosclerosis Lactic 2.4, monitor Blood cultures CBC and CMP lab monitoring Tylenol Cardizem drip started in ED Pain management Protonix Remdesivir On Xarelto Admit to inpatient 3. Heart failure: BNP 941 Troponin 40 > 39.62 Furosemide p.o. daily 40 mg Flomax, urinary catheter placement and management Monitor potassium EKG Telemetry I&O Daily weights Trend troponin 4. Diabetes 1.5, managed as type 2: On home metformin and glipizide, hold Glucose 249 A1c Sliding scale 5. Atrial fibrillation: Controlled, HR 105 EKG Telemetry monitoring PDMP PDMP Reviewed: Not Reviewed Attestations 2 Medical Necessity Statement*: Patient expected to stay at least two midnights for further evaluation and treatment. Diagnoses Falls R29.6 COVID U07.1 Heart failure I50.9 Diabetes 1.5, managed as type 2 E13.9 Atrial fibrillation I48.91
--- NOTE | 2025-03-20 16:37 | PC.PHAR ---
pt' [id number] Ursula Persaud sets his medications up for him.
[2025-03-20] MEDS: pantoprazole 40 mg SDV IVP (16:47)
[2025-03-20 18:17] LABS: Procalcitonin 0.18 ng/mL (0-0.5)
[2025-03-20 18:21] LABS: CRP High Sensitivity Cardiac 5.320 mg/dL (0.0-0.3)
--- NOTE | 2025-03-20 19:10 | PC.NURSE ---
Patient had aggarwal catheter placed by ER staff just prior to patient being transferred to icu.
--- NOTE | 2025-03-20 19:29 | ECG_ITS ---
[facility] Test Date: 2025-03-20 Pat Name: Elia Parnell Department: Room: ICU12 Gender: Male Medical Office Manager: : 1945 Requested By: Keara Almanza Order Number: [id number] Reading MD: JOSIAH VITALE Measurements Intervals Pitman Rate: 91 P: 0 MO: 0 QRS: 33 QRSD: 108 T: 39 QT: 367 QTc: 453 Interpretive Statements ATRIAL FIBRILLATION WITH ABERRANT CONDUCTION OR VENTRICULAR PREMATURE COMPLEXES ABNORMAL RHYTHM ECG Compared to ECG 03/20/2025 14:12:49 Ventricular premature complex(es) now present Aberrant conduction of supraventricular beat(s) now present ST (T wave) deviation no longer present Electronically Signed On 03-21-2025 20:36:31 GROUNDSMAN by JOSIAH VITALE [email or web address]
[2025-03-20] MEDS: remdesivir 200 MG in sodium chloride 0.9% (100 ml) 60 ML 100 MG IV (19:52)
[2025-03-20 20:23] LABS: Troponin 5 6HR 48.70 ng/L (0-15); Troponin 5 6HR Delta 8.70 ng/L (0-12)
[2025-03-21] VITALS (41 sets, daily range): BP systolic 99–159; BP diastolic 69–103; PULSE 1–103; RESP 18–30; TEMP 36.8–37.4; O2SAT 89–96
[2025-03-21 04:41] LABS: Hematocrit 38.3 % (37-53); Hemoglobin 12.20 g/dL (11.27-16.99); Mean Corpuscular HGB Conc 31.9 g/dL (30-55); Mean Corpuscular Hemoglobin 29.6 pg (27-33); Mean Corpuscular Volume 93.0 fl (82-101); Nucleated Red Blood Cells % 0 %; Platelet Count 142 10^3/cmm (157-399); Red Blood Count 4.12 10^6/uL (3.85-5.65); White Blood Count 5.98 10^3/uL (3.29-11.43)
[2025-03-21] MEDS: dilTIAZem ER (24HR) 300 mg Capsule PO (05:12)
--- NOTE | 2025-03-21 11:26 | PC.NURSE ---
Assisted pt out of bed to BSC with difficulty. Maximum 2 assist and walker utilized. His right leg is much harder for him to scoot than the left. Pt had difficulty following safety instructions to get to the BSC. He did much better going back to bed. Pt is not safe to go home by himself at this time.
--- NOTE | 2025-03-21 11:50 | P.PN_ITS ---
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 Patient reports that he uses a walker in his home and a cane outside. He has a sister that comes to help him Wednesday, Wednesday, and Wednesday. Today, he fell for what he thinks was the 3rd or 4th time today. Denies loss of conciousness. Each time he gets up after falling, he feels nauseous and sometimes vomits. He has complaints of sore throat, congestion, and cough. He has not taken anything but otc advil. 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 He reports the facility had asbestos in the pipe construction. Denies alcohol, smoking, or any illicit drug use. In the ED, CBC unremarkable. Glucose 249. NA 133, CL 97. Lactic 2.4 > 2.4. Troponin 40 > 39.62. BNP 941. COVID positive. CT head; no acute intercranial abnormalities or fracture, see full results. CXR; cardiomegaly and atherosclerosis. Will admit to the hospitalist service for further evaluation and treatment. 03/21/25: At time of interview patient i s resting with his eyes closed but he was easy to arouse. Pleasant, conversational, and feels like he is improving from yesterday. He reports that he still feels congested with cough and feels like he cannot cough it up. Denies nausea, vomiting, headache, dizziness, or any additional falls. He does have a very hard time getting up and requires two-person assist. Patient and son have voiced that they would like for him to discharge to a care home facility where he can receive Exer support. There preference is [facility]. Discussed this with case management and Ruby PACHECO. Vitals/I&O/Wt Last Vital Signs Temp 99.4 F 03/21/25 00:15 Pulse 100 03/21/25 10:00 Resp 24 H 03/21/25 05:15 BP 138/79 03/21/25 05:15 Pulse Ox 93 03/21/25 05:15 O2 Del Method Nasal Cannula 03/21/25 05:15 O2 Flow Rate 2 12/24/25 05:15 03/20/25 03/21/25 03/21/25 22:59 06:59 14:59 Intake Total 147.958 / 147.958 950.583 / 1098.541 Output Total 450 / 450 Balance 147.958 / 147.958 500.583 / 648.541 Weight last 48 hrs Weight 128.82 kg Weight 129 kg Weight 127.006 kg Physical Exam 2 Const: COMMON NORMALS: patient oriented x3 HENMT: COMMON NORMALS: normocephalic HEAD & SCALP: normocephalic OTHER: Very [place] Chest: CHEST: Yes Symmetrical chest wall rise Resp: EFFORT & INSPECTION: Yes decreased respiratory effort Cardio: OTHER: Irregularly irregular GI: COMMON NORMALS: Soft to palpation, non-tender, No hepatosplenomegaly present and no masses AUSCULTATION: Yes normoactive bowel sounds P ALPATION: Yes Soft to palpation and Yes No hepatosplenomegaly present Extremity: COMMON NORMALS: no clubbing, cyanosis or edema Neuro: COMMON NORMALS: patient oriented x3 Psych: COMMON NORMALS: mental status grossly normal and cooperative Skin: OTHER: Small skin tears, sores in various healing stages likely s/t to falls Urinary Catheter Management: Fine: Cath Placed During This Visit: yes Reason for Continuing Indwelling Catheter: Acute Urinary Retention or Obstruction Urinary Catheter Date of Insertion: 03/20/25 Urinary Catheter Time of Insertion: 18:00 Data 03/21/25 04:24 03/20/25 13:44 Micro: Microbiology 03/20/25 13:44 Blood Culture - Preliminary Blood NEGATIVE TO DATE 03/20/25 13:47 Blood Culture - Preliminary Blood NEGATIVE TO DATE A&P Assessment and plan 1. Falls: Patient uses a walker and a cane at times He reports he has fallen 3-4 times recently, denies confusion or loss of consciousness CT head; no acute intercranial abnormalities or fracture, see full results CXR; cardiomegaly and atherosclerosis Follows precautions PT/OT prior to discharge Bedrest Treating active infection?code 2. COVID: Without leukocytosis, WBC WNL at 7.74 98% on room air SARS Cov 2 positive CXR; cardiomegaly and atherosclerosis Lactic 2.4, monitor Blood cultures CBC and CMP lab monitoring Tylenol Cardizem drip started in ED Pain management Protonix Remdesivir On Xarelto Admit to inpatient 3. Heart failure: BNP 941 Troponin 40 > 39.62 Furosemide p.o. daily 40 mg Flomax, urinary catheter placement and management Monitor potassium EKG Telemetry I&O Daily weights Trend troponin 4. Diabetes 1.5, managed as type 2: On home metformin and glipizide, hold Glucose 249 A1c Sliding scale 5. Atrial fibrillation: Controlled, HR 105 EKG Telemetry monitoring 6. Hypophosphatemia: 2.4 Replace X 3 days Lab monitoring PDMP PDMP Reviewed: Not Reviewed Attestations 2 Medical Necessity Statement*: Patient not expected to stay an additional 2 midnights. Of note he is in ICU but it is because of overflow not true ICU. Patient expected to discharge tomorrow if there is placement available. Diagnoses Falls R29.6 COVID U07.1 Heart failure I50.9 Diabetes 1.5, managed as type 2 E13.9 Atrial fibrillation I48.91 Hypophosphatemia E83.39
[2025-03-21 15:28] LABS: Lactic Sepsis W/Reflex 2.2 mmol/L (0.5-2.2)
[2025-03-21 15:31] LABS: Troponin T (5th) Once 41 ng/L (0-15)
[2025-03-21 15:45] LABS: NT Pro B Type Natriuretic Pept 688 pg/mL (0-450)
[2025-03-21 16:45] LABS: Reflex Lactate Order REFLEX LACTIC ORDERD
[2025-03-21] MEDS: remdesivir 100 MG in sodium chloride 0.9% (100 ml) 80 ML IV (16:55)
[2025-03-21] MEDS: pantoprazole 40 mg SDV IVP (17:02)
--- NOTE | 2025-03-21 17:23 | PC.NURSE ---
Report called to CSU for bed 105. Report given to Elaina PACHECO. To transfer after he finishes his meal.
--- NOTE | 2025-03-21 17:58 | PC.NURSE ---
Pt transferred to room 105 CSU. All belongings with pt. Updates provided to Elaina and Minal.
[2025-03-21 18:03] LABS: Lactic Acid level (Lactate) 2.5 mmol/L (0.5-2.2)
[2025-03-22] VITALS (27 sets, daily range): BP systolic 99–136; BP diastolic 69–85; PULSE 85–117; RESP 18–32; TEMP 36.8–37; O2SAT 88–95
[2025-03-22 03:04] LABS: Hematocrit 35.0 % (37-53); Hemoglobin 11.70 g/dL (11.27-16.99); Mean Corpuscular HGB Conc 33.4 g/dL (30-55); Mean Corpuscular Hemoglobin 30.2 pg (27-33); Mean Corpuscular Volume 90.4 fl (82-101); Nucleated Red Blood Cells % 0 %; Platelet Count 172 10^3/cmm (157-399); Red Blood Count 3.87 10^6/uL (3.85-5.65); White Blood Count 6.10 10^3/uL (3.29-11.43)
[2025-03-22 03:27] LABS: Anion Gap 11.4 (5-19); Blood Urea Nitrogen 18 mg/dL (8-23); Calcium 8.1 mg/dL (8.5-10.5); Carbon Dioxide 27 mmol/L (22-29); Chloride 99 mmol/L (98-107); Glucose 224 mg/dL (65-115); Osmolality Calculated 287 mOsm/kg (285-295); Potassium 3.4 mmol/L (3.5-5.1); Sodium 134 mmol/L (136-145)
[2025-03-22] MEDS: dilTIAZem ER (24HR) 300 mg Capsule PO (05:12)
[2025-03-22 09:29] LABS: Lactate (Lactic Acid level) 1.7 mmol/L (0.5-2.2)
[2025-03-22 09:30] LABS: Troponin T (5th) Once 48 ng/L (0-15)
--- NOTE | 2025-03-22 15:42 | P.PN_ITS ---
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 Patient reports that he uses a walker in his home and a cane outside. He has a sister that comes to help him Wednesday, Wednesday, and Wednesday. Today, he fell for what he thinks was the 3rd or 4th time today. Denies loss of conciousness. Each time he gets up after falling, he feels nauseous and sometimes vomits. He has complaints of sore throat, congestion, and cough. He has not taken anything but otc advil. 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 He reports the facility had asbestos in the pipe construction. Denies alcohol, smoking, or any illicit drug use. In the ED, CBC unremarkable. Glucose 249. NA 133, CL 97. Lactic 2.4 > 2.4. Troponin 40 > 39.62. BNP 941. COVID positive. CT head; no acute intercranial abnormalities or fracture, see full results. CXR; cardiomegaly and atherosclerosis. Will admit to the hospitalist service for further evaluation and treatment. 03/21/25: At time of interview patient i s resting with his eyes closed but he was easy to arouse. Pleasant, conversational, and feels like he is improving from yesterday. He reports that he still feels congested with cough and feels like he cannot cough it up. Denies nausea, vomiting, headache, dizziness, or any additional falls. He does have a very hard time getting up and requires two-person assist. Patient and son have voiced that they would like for him to discharge to a assisted facility where he can receive Exer support. There preference [facility]. Discussed this with case management and Ruby PACHECO. 03/22/25: Patient lying in bed at the ti me of interview. He had just been with the bedpan. Patient has a wound to his left buttocks that he reports he has put cortisone on for the last 2 weeks. This was assessed with RN and cleaned. Diameter of a baseball, redness, break in the skin with various areas of healing stage I-II. Dressed with Optifoam to both cheeks. Patient overall looks more improved and is only on 0.5 L oxygen nasal cannula. No additional complaints. Plans for discharge to [facility] 03/23/2025. Vitals/I&O/Wt Last Vital Signs Temp 98.2 F 03/22/25 14:00 Pulse 97 03/22/25 14:00 Resp 26 H 03/22/25 14:00 BP 129/76 03/22/25 14:00 Pulse Ox 89 L 03/22/25 12:00 O2 Del Method Room Air 03/22/25 04:00 O2 Flow Rate 2 03/21/25 11:00 03/22/25 03/22/25 03/22/25 06:59 14:59 22:59 Intake Total 300 / 2400 Output Total 200 / 2225 1150 / 1150 Balance 100 / 175 -1150 / -1150 Weight last 48 hrs Weight 130.3 kg Weight 128.82 kg Weight 129 kg Physical Exam 2 Const: COMMON NORMALS: patient oriented x3 HENMT: COMMON NORMALS: normocephalic HEAD & SCALP: normocephalic OTHER: Very [place] Chest: CHEST: Yes Symmetrical chest wall rise Resp: EFFORT & INSPECTION: Yes decreased respiratory effort Cardio: OTHER: Irregularly irregular GI: COMMON NORMALS: Soft to palpation, non-tender, No hepatosplenomegaly present and no masses AUSCULTATION: Yes normoactive bowel sounds P ALPATION: Yes Soft to palpation and Yes No hepatosplenomegaly present Extremity: COMMON NORMALS: no clubbing, cyanosis or edema Neuro: COMMON NORMALS: patient oriented x3 Psych: COMMON NORMALS: mental status grossly normal and cooperative Skin: OTHER: Small skin tears, sores in various healing stages likely s/t to falls. 1-2-week old stage I-II pressure ulcer bilateral buttocks most pronounced on left buttocks now CDI and dressed with wound care Urinary Catheter Management: Fine: Cath Placed During This Visit: yes Reason for Continuing Indwelling Catheter: Acute Urinary Retention or Obstruction Urinary Catheter Date of Insertion: 03/20/25 Urinary Catheter Time of Insertion: 18:00 Data 03/22/25 02:22 03/22/25 02:22 Micro: Microbiology 03/20/25 13:44 Blood Culture - Preliminary Blood NEGATIVE TO DATE 03/20/25 13:47 Blood Culture - Preliminary Blood NEGATIVE TO DATE A&P Assessment and plan 1. Falls: Patient uses a walker and a cane at times He reports he has fallen 3-4 times recently, denies confusion or loss of consciousness CT head; no acute intercranial abnormalities or fracture, see full results CXR; cardiomegaly and atherosclerosis Follows precautions PT/OT prior to discharge Bedrest Treating active infection?code 2. COVID: Without leukocytosis, WBC WNL at 7.74 98% on room air SARS Cov 2 positive CXR; cardiomegaly and atherosclerosis Lactic 2.4, monitor Blood cultures CBC and CMP lab monitoring Tylenol Cardizem drip started in ED Pain management Protonix Remdesivir On Xarelto Admit to inpatient 3. Heart failure: BNP 941 Troponin 40 > 39.62 Furosemide p.o. daily 40 mg Flomax, urinary catheter placement and management Monitor potassium EKG Telemetry I&O Daily weights Trend troponin 4. Diabetes 1.5, managed as type 2: On home metformin and glipizide, hold Glucose 249 A1c Sliding scale 5. Atrial fibrillation: Controlled, HR 105 EKG Telemetry monitoring 6. Hypophosphatemia: 2.4 Replace X 3 days Lab monitoring 7. Pressure ulcer of buttock: Patient reports he has a wound to his buttocks that he is just put cortisone on for the last 1.5-2 weeks Ulcers in various healing stages I-II, on the left more pronounced about the diameter of a baseball Clean, dry, intact, wound care Optifoam applied Nursing wound care Infection prevention Pain management Turning routine PDMP PDMP Reviewed: Not Reviewed Attestations 2 Medical Necessity Statement*: Patient not expected to stay for 2 additional midnights. Patient expected to discharge tomorrow, 03/23/2025. Coding Level of Care Code 44159 Diagnoses Falls R29.6 COVID U07.1 Heart failure I50.9 Diabetes 1.5, managed as type 2 E13.9 Atrial fibrillation I48.91 Hypophosphatemia E83.39 Pressure ulcer of buttock L89.309
[2025-03-22] MEDS: pantoprazole 40 mg SDV IVP (16:27)
[2025-03-22] MEDS: remdesivir 100 MG in sodium chloride 0.9% (100 ml) 80 ML IV (16:39)
[2025-03-23] VITALS (18 sets, daily range): BP systolic 114–140; BP diastolic 76–87; PULSE 92–115; RESP 14–30; TEMP 36.1–37.6; O2SAT 88–94
[2025-03-23] MEDS: dilTIAZem ER (24HR) 300 mg Capsule PO (05:23)
--- NOTE | 2025-03-23 11:00 | P.PN_ITS ---
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 Patient reports that he uses a walker in his home and a cane outside. He has a sister that comes to help him Wednesday, Wednesday, and Wednesday. Today, he fell for what he thinks was the 3rd or 4th time today. Denies loss of conciousness. Each time he gets up after falling, he feels nauseous and sometimes vomits. He has complaints of sore throat, congestion, and cough. He has not taken anything but otc advil. 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 He reports the facility had asbestos in the pipe construction. Denies alcohol, smoking, or any illicit drug use. In the ED, CBC unremarkable. Glucose 249. NA 133, CL 97. Lactic 2.4 > 2.4. Troponin 40 > 39.62. BNP 941. COVID positive. CT head; no acute intercranial abnormalities or fracture, see full results. CXR; cardiomegaly and atherosclerosis. Will admit to the hospitalist service for further evaluation and treatment. 03/21/25: At time of interview patient i s resting with his eyes closed but he was easy to arouse. Pleasant, conversational, and feels like he is improving from yesterday. He reports that he still feels congested with cough and feels like he cannot cough it up. Denies nausea, vomiting, headache, dizziness, or any additional falls. He does have a very hard time getting up and requires two-person assist. Patient and son have voiced that they would like for him to discharge to a correction facility where he can receive Exer support. [facility]. Discussed this with case management and Ruby PACHECO. 03/22/25: Patient lying in bed at the ti me of interview. He had just been with the bedpan. Patient has a wound to his left buttocks that he reports he has put cortisone on for the last 2 weeks. This was assessed with RN and cleaned. Diameter of a baseball, redness, break in the skin with various areas of healing stage I-II. Dressed with Optifoam to both cheeks. Patient overall looks more improved and is only on 0.5 L oxygen nasal cannula. No additional complaints. Plans for discharge to [facility] 03/23/2025. 03/23/25: Patient resting sitting up in bed at time of interview. He reports no complaints. Still requiring oxygen but only on 1-2 L. Will continue to monitor until patient can be discharged to [facility]. He is awaiting an isolation bed that will be ready on 03/26/2025. Case management aware. Vitals/I&O/Wt Last Vital Signs Temp 98.2 F 03/26/25 18:36 Pulse 96 03/26/25 18:36 Resp 20 H 03/26/25 18:36 BP 138/79 03/26/25 18:36 Pulse Ox 92 03/26/25 18:36 O2 Del Method Nasal Cannula 03/26/25 03:59 O2 Flow Rate 2 03/25/25 05:50 Weight last 48 hrs Weight 128.3 kg Weight 128.3 kg Physical Exam 2 Const: COMMON NORMALS: patient oriented x3 HENMT: COMMON NORMALS: normocephalic HEAD & SCALP: normocephalic OTHER: Very [place] Chest: CHEST: Yes Symmetrical chest wall rise Resp: EFFORT & INSPECTION: Yes decreased respiratory effort Cardio: OTHER: Irregularly irregular GI: COMMON NORMALS: Soft to palpation, non-tender, No hepatosplenomegaly present and no masses AUSCULTATION: Yes normoactive bowel sounds P ALPATION: Yes Soft to palpation and Yes No hepatosplenomegaly present Extremity: COMMON NORMALS: no clubbing, cyanosis or edema Neuro: COMMON NORMALS: patient oriented x3 Psych: COMMON NORMALS: mental status grossly normal and cooperative Skin: OTHER: Small skin tears, sores in various healing stages likely s/t to falls. 1-2-week old stage I-II pressure ulcer bilateral buttocks most pronounced on left buttocks now CDI and dressed with wound care Urinary Catheter Management: Fine: Cath Placed During This Visit: yes Reason for Continuing Indwelling Catheter: Accurate Measurement of Urinary Output in Critically Ill Patients Urinary Catheter Date of Insertion: 03/20/25 Urinary Catheter Time of Insertion: 18:00 Data 03/26/25 04:07 03/26/25 04:07 Micro: Microbiology 03/23/25 17:38 Gram Stain - Final Buttock Wound Culture - Preliminary A&P Assessment and plan 1. Falls: Patient uses a walker and a cane at times He reports he has fallen 3-4 times recently, denies confusion or loss of consciousness CT head; no acute intercranial abnormalities or fracture, see full results CXR; cardiomegaly and atherosclerosis Follows precautions PT/OT prior to discharge Bedrest Treating active infection 2. COVID: Without leukocytosis, WBC WNL at 7.74 98% on room air SARS Cov 2 positive CXR; cardiomegaly and atherosclerosis Lactic 2.4, monitor Blood cultures CBC and CMP lab monitoring Tylenol Cardizem drip started in ED Pain management Protonix Remdesivir On Xarelto Admitted to inpatient 3. Heart failure: BNP 941 Troponin 40 > 39.62 Furosemide p.o. daily 40 mg Flomax, urinary catheter placement and management Monitor potassium EKG Telemetry I&O Daily weights Trend troponin 4. Diabetes 1.5, managed as type 2: On home metformin and glipizide, hold Glucose 249 A1c Sliding scale 5. Atrial fibrillation: Controlled, HR 105 EKG Telemetry monitoring 6. Hypophosphatemia: 2.4 Replace Lab monitoring 7. Pressure ulcer of buttock: Patient reports he has a wound to his buttocks that he is just put cortisone on for the last 1.5-2 weeks Ulcers in various healing stages I-II, on the left more pronounced about the diameter of a baseball Clean, dry, intact, wound care Optifoam applied Nursing wound care Infection prevention Pain management Turning routine PDMP PDMP Reviewed: Not Reviewed Attestations 2 Medical Necessity Statement*: Patient not expected to stay for 2 additional midnights. Patient expected to discharge tomorrow, 03/24/2025. Diagnoses Falls R29.6 COVID U07.1 Heart failure I50.9 Diabetes 1.5, managed as type 2 E13.9 Atrial fibrillation I48.91 Hypophosphatemia E83.39 Pressure ulcer of buttock L89.309
--- NOTE | 2025-03-23 11:30 | PC.SOCIAL ---
IMM Update pg 2 of IMM updated and reviewed w/ patient. Copy provided and copy dated, initialed and placed in chart.
--- NOTE | 2025-03-23 12:25 | PM.PN ---
Subjective Subjective: Leodan Vasquez is a 73 year old male with prior medical history of HTN, CAD, SOB, CP, DEBORAH, DM, nonrheumatic aortic valve stenosis, and near syncope presenting with complaints of chest pain. Patient reports that for greater than 1 month he has had shortness of breath that has become progressively worse. He reports that he has had episodes where he has passed out and his at bedside reports that he sometimes looks/acts drunk with odd spells of not acting like himself . They suspect it is because he is not getting enough oxygen. Patient has been diagnosed with COPD and did smoke 3 to 4 packs/day for 25 years but quit in 2002. He has had issues with fluid retention and most recently saw Dr. Carranza outpatient for some of the symptoms; completing a 5-day course of diuretics. Today his legs have pitting edema and he feels congested with fluid. He woke up this morning in the 05 100-hour with 4/10 chest pain. He came to [facility] ED via private vehicle. 90% on room air and is now at 96% on 4L NC. Full code. Of note, patient reports that his baseline is 5-7 bowel movements of diarrhea per morning. Denies recent illness or sick contacts. 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 In the ED, BP 145/77, HR 66, RR 31, T97.9, O2 91% on room air. WBC 7.07, Hgb 14.7, PLT 135. Creatinine 0.8, BUN 14 WNL. Glucose 179. Troponin 24 > 21.57. Lipase 12. CXR; cardiomegaly and atherosclerosis. Will admit to Hospitalist Service for further evaluation and treatment. Cardiology consulted. 03/22/25; patient sitting up in chair at time of interview. He reports he did not sleep at all last night. Requiring 2-3 L of oxygen, he states he feels a difference and does better when he is on it. No headache, dizziness, falls, or any other modifying factors. No other complaints overnight. Planning for walk test and possible discharge to home 03/23/2025. 03/23/25: Patient resting sitting up in bed at time of interview. He reports no complaints. Still requiring oxygen but only on 1-2 L. Will continue to monitor until patient can be discharged to [facility]. He is awaiting an isolation bed that will be ready on 03/26/2025. Case management aware. Vitals/I&O/Wt Last Vital Signs Temp 97 F L 03/23/25 10:00 Pulse 99 03/23/25 10:00 Resp 23 H 03/23/25 10:00 BP 129/84 03/23/25 10:00 Pulse Ox 92 03/23/25 07:53 O2 Del Method Nasal Cannula 03/23/25 04:00 O2 Flow Rate 2 03/21/25 11:00 03/22/25 03/23/25 03/23/25 22:59 06:59 14:59 Intake Total 100 / 100 Output Total 400 / 1550 350 / 1900 Balance -300 / -1450 -350 / -1800 Weight last 48 hrs Weight 130.8 kg Weight 130.8 kg Weight 130.3 kg Physical Exam Const: COMMON NORMALS: patient oriented x3 HENMT: COMMON NORMALS: normocephalic HEAD & SCALP: normocephalic OTHER: Very [place] Chest: CHEST: Yes Symmetrical chest wall rise Resp: EFFORT & INSPECTION: Yes decreased respiratory effort Cardio: OTHER: Irregularly irregular GI: COMMON NORMALS: Soft to palpation, non-tender, No hepatosplenomegaly present and no masses AUSCULTATION: Yes normoactive bowel sounds PALPATION: Yes Soft to palpation and Yes No hepatosplenomegaly present Extremity: COMMON NORMALS: no clubbing, cyanosis or edema Neuro: COMMON NORMALS: patient oriented x3 Psych: COMMON NORMALS: mental status grossly normal and cooperative Skin: OTHER: Small skin tears, sores in various healing stages likely s/t to falls. 1-2-week old stage I-II pressure ulcer bilateral buttocks most pronounced on left buttocks now CDI and dressed with wound care Urinary Catheter Management: Fine: Cath Placed During This Visit: yes Reason for Continuing Indwelling Catheter: Acute Urinary Retention or Obstruction Urinary Catheter Date of Insertion: 03/20/25 Urinary Catheter Time of Insertion: 18:00 Data 03/22/25 02:22 03/22/25 02:22 A&P Assessment and plan 1. Falls: Patient uses a walker and a cane at times He reports he has fallen 3-4 times recently, denies confusion or loss of consciousness CT head; no acute intercranial abnormalities or fracture, see full results CXR; cardiomegaly and atherosclerosis Follows precautions PT/OT prior to discharge Bedrest Treating active infection?code 2. COVID: Without leukocytosis, WBC WNL at 7.74 98% on room air SARS Cov 2 positive CXR; cardiomegaly and atherosclerosis Lactic 2.4, monitor Blood cultures CBC and CMP lab monitoring Tylenol Cardizem drip started in ED Pain management Protonix Remdesivir On Xarelto Admit to inpatient 3. Heart failure: BNP 941 Troponin 40 > 39.62 Furosemide p.o. daily 40 mg Flomax, urinary catheter placement and management Monitor potassium EKG Telemetry I&O Daily weights Trend troponin 4. Diabetes 1.5, managed as type 2: On home metformin and glipizide, hold A1c Sliding scale 5. Atrial fibrillation: Controlled, HR 105 EKG Telemetry monitoring 6. Hypophosphatemia: 2.4 Replace X 3 days Lab monitoring 7. Pressure ulcer of buttock: Patient reports he has a wound to his buttocks that he is just put cortisone on for the last 1.5-2 weeks Ulcers in various healing stages I-II, on the left more pronounced about the diameter of a baseball Clean, dry, intact, wound care Optifoam applied Nursing wound care Infection prevention Pain management Turning routine PDMP PDMP Reviewed: Not Reviewed Attestations Medical Necessity Statement*: Patient expected to stay an additional 2 midnights secondary to bed placement needs with SNF. [facility] will have an isolation bed for him available on 03/26/2025. Diagnoses Falls R29.6 COVID U07.1 Heart failure I50.9 Diabetes 1.5, managed as type 2 E13.9 Atrial fibrillation I48.91 Hypophosphatemia E83.39 Pressure ulcer of buttock L89.309
--- NOTE | 2025-03-23 15:30 | PC.NURSE ---
Existing IV discontinued.. Cath intact and site without redness, swelling, or drainage. New 18 gauge inserted into LFA. Good blood return, flushed with NS with difficulty. C/D/I. Pt tolerated well.
[2025-03-23] MEDS: remdesivir 100 MG in sodium chloride 0.9% (100 ml) 80 ML IV (16:00)
[2025-03-23] MEDS: pantoprazole 40 mg SDV IVP (16:53)
[2025-03-24] VITALS: BP 147/79; PULSE 102; RESP 28; TEMP 37.2; O2SAT 92
[2025-03-24 02:40] LABS: Hematocrit 35.1 % (37-53); Hemoglobin 11.70 g/dL (11.27-16.99); Mean Corpuscular HGB Conc 33.3 g/dL (30-55); Mean Corpuscular Hemoglobin 30.1 pg (27-33); Mean Corpuscular Volume 90.2 fl (82-101); Nucleated Red Blood Cells % 0 %; Platelet Count 187 10^3/cmm (157-399); Red Blood Count 3.89 10^6/uL (3.85-5.65); White Blood Count 6.82 10^3/uL (3.29-11.43)
[2025-03-24 02:55] LABS: Alanine Aminotransferase 12 U/L (0-41); Albumin Level 3.3 g/dL (3.5-5.2); Alkaline Phosphatase 81 U/L (40-130); Anion Gap 11.6 (5-19); Aspartate Amino Transferase 19 U/L (0-40); Blood Urea Nitrogen 19 mg/dL (8-23); Calcium 8.5 mg/dL (8.5-10.5); Carbon Dioxide 30 mmol/L (22-29); Chloride 97 mmol/L (98-107); Globulin 3.3 g/dL (1.3-4.6); Glucose 218 mg/dL (65-115); Magnesium 2.1 mg/dL (1.7-2.3); Osmolality Calculated 289 mOsm/kg (285-295); Potassium 3.6 mmol/L (3.5-5.1); Sodium 135 mmol/L (136-145); Total Protein 6.6 g/dL (6.6-8.7); Troponin T (5th) Once 35 ng/L (0-15)
[2025-03-24 04:00] VITALS: BP 124/70; PULSE 91; RESP 25; TEMP 36.8; O2SAT 92
[2025-03-24] MEDS: dilTIAZem ER (24HR) 300 mg Capsule PO (05:24)
[2025-03-24 07:29] VITALS: BP 128/77; PULSE 94; RESP 17; TEMP 36.8; O2SAT 91
[2025-03-24] MEDS: HYDROcodone-acetaminophen 5-325 mg Tablet 1 TAB PO (09:56)
--- NOTE | 2025-03-24 10:05 | PM.PN ---
Subjective Subjective: Tuliot Naresh Vasquez mariama s a 73 year old ma ibeth with prior [facility] history of HTN , CAD, SOB, CP, OS A, DM, nonrheumati c aortic valve sanjay nosis, and near sy ncope presenting w ith complaints of chest pain. Patie nt reports that fo r greater than 1 m onth he has had sh ortness of breath that has become pr ogressively worse. He reports that he has had episode s where he has pas sed out and his wi fe at bedside repo rts that he someti mes looks/acts dr buckley with odd spell s of not acting chalino poole himself . They suspect it is bec ause he is not get ting enough oxygen . Patient has bee n diagnosed with C OPD and did smoke 3 to 4 packs/day f or 25 years but qu it in 2002. He guzman s had issues with fluid retention an d most recently sa w Dr. Carranza outpat ient for some of t he symptoms; compl eting a 5-day cour se of diuretics. Today his legs hav e pitting edema an d he feels congest ed with fluid. He woke up this morn ing in the 05 100- hour with 4/[address] pain. He came to [facility] re ED via private vehicle. 90% on r oom air and is now at 96% on 4L NC. Full code. Of not e, patient reports that his baseline is 5-7 bowel move ments of diarrhea per morning. Seamus es recent illness or sick contacts. 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 In e ED, BP 145/77, H R 66, RR 31, T97.9 , O2 91% on room a ir. WBC 7.07, Hgb 14.7, PLT 135. C reatinine 0.8, BUN 14 WNL. Glucose 179. Troponin 24 > 21.57. Lipase 1 2. CXR; cardiomeg henry and atheroscle rosis. Will admit to Hospitalist Se lewis for further evaluation and santos atment. Cardiolog y consulted. ; patient sit ting up in chair a t time of intervie w. He reports he did not sleep at a ll last night. Re quiring 2-3 L of o xygen, he states h e feels a differen ce and does better when he is on it. No headache, diz ziness, falls, or any other modifyin g factors. No oth er complaints over night. Planning f or walk test and p ossible discharge to home 03/23/2025 . 03/23/25: Bouchra ent resting sittin g up in bed at yee cheung of interview. Tali hceung reports no compl aints. Still requ iring oxygen but o nly on 1-2 L. Devyn l continue to [facility] until patient can be discharged to [facility]. He is awaiting a n isolation bed th at will be ready o n 03/26/2025. Shawn e management aware . 03/24/25: Bouchra ent resting comfor tably in bed. He reports that he guzman s had some wrist p ain since since pr ior to discharge t hat has increased significantly over night. When asked if he fell on it he advised he briseida ot remember. Will get imaging. Als o, we hope to get a wound culture wi th some of the tami inage of his butto cks ulcerations. Will start on anti biotics. Patient is expected to dis charge in a couple of days to [facility]. Yoli talamantes for IV antibioti cs for now but swi tch to oral at dis charge. Vitals/I&O/Wt Last Vital Signs Temp 98.3 F 03/24/25 07:29 Pulse 94 03/24/25 07:29 Resp 17 03/24/25 07:29 BP 128/77 03/24/25 07:29 Pulse Ox 91 03/24/25 07:29 O2 Del Method Nasal Cannula 03/23/25 04:00 O2 Flow Rate 2 03/21/25 11:00 03/23/25 03/24/25 03/24/25 22:59 06:59 14:59 Intake Total 100 / 100 360 / 360 Output Total 950 / 950 Balance 100 / 100 -950 / -850 360 / 360 Weight last 48 hrs Weight 130.691 kg Weight 130.691 kg Weight 130.8 kg Weight 130.8 kg Physical Exam Const: COMMON NORMALS: patient oriented x3 HENMT: COMMON NORMALS: normocephalic HEAD & SCALP: normocephalic OTHER: Very [place] Chest: CHEST: Yes Symmetrical chest wall rise Resp: EFFORT & INSPECTION: Yes decreased respiratory effort Cardio: OTHER: Irregularly irregular GI: COMMON NORMALS: Soft to palpation, non-tender, No hepatosplenomegaly present and no masses AUSCULTATION: Yes normoactive bowel sounds PALPATION: Yes Soft to palpation and Yes No hepatosplenomegaly present Extremity: COMMON NORMALS: no clubbing, cyanosis or edema Neuro: COMMON NORMALS: patient oriented x3 Psych: COMMON NORMALS: mental status grossly normal and cooperative Skin: OTHER: Small skin tears, sores in various healing stages likely s/t to falls. 1-2-week old stage I-II pressure ulcer bilateral buttocks most pronounced on left buttocks now CDI and dressed with wound care Urinary Catheter Management: Fine: Cath Placed During This Visit: yes Reason for Continuing Indwelling Catheter: Acute Urinary Retention or Obstruction Urinary Catheter Date of Insertion: 03/20/25 Urinary Catheter Time of Insertion: 18:00 Data 03/24/25 02:13 03/24/25 02:13 A&P Assessment and plan 1. Falls: Patient uses a walker and a cane at times He reports he has fallen 3-4 times recently, denies confusion or loss of consciousness CT head; no acute intercranial abnormalities or fracture, see full results CXR; cardiomegaly and atherosclerosis Follows precautions PT/OT prior to discharge Bedrest Treating active infection?code 03/24: Patient reports increasing pain to his right wrist and cannot remember if he injured it when he fell X4 Right hand and wrist imaging Pain management 2. COVID: Without leukocytosis, WBC WNL at 7.74 98% on room air SARS Cov 2 positive CXR; cardiomegaly and atherosclerosis Lactic 2.4, monitor Blood cultures CBC and CMP lab monitoring Tylenol Cardizem drip started in ED Pain management Protonix Remdesivir On Xarelto Admit to inpatient 3. Heart failure: BNP 941 Troponin 40 > 39.62 Furosemide p.o. daily 40 mg Flomax, urinary catheter placement and management Monitor potassium EKG Telemetry I&O Daily weights Trend troponin 4. Diabetes 1.5, managed as type 2: On home metformin and glipizide, hold A1c Sliding scale 5. Atrial fibrillation: Controlled, HR 105 EKG Telemetry monitoring 6. Hypophosphatemia: 2.4 Replace X 3 days Lab monitoring 7. Pressure ulcer of buttock: Patient reports he has a wound to his buttocks that he is just put cortisone on for the last 1.5-2 weeks Ulcers in various healing stages I-II, on the left more pronounced about the diameter of a baseball Clean, dry, intact, wound care Optifoam applied Nursing wound care Infection prevention Pain management Turning routine Starting antibiotics and probiotic PDMP PDMP Reviewed: Not Reviewed Attestations Medical Necessity Statement*: Patient expected to stay an additional 2 midnights secondary to placement. Also treating ulcerations and new wrist pain. Diagnoses Falls R29.6 COVID U07.1 Heart failure I50.9 Diabetes 1.5, managed as type 2 E13.9 Atrial fibrillation I48.91 Hypophosphatemia E83.39 Pressure ulcer of buttock L89.309
--- NOTE | 2025-03-24 10:10 | XRR_ITS ---
PROCEDURE INFORMATION: Exam: XR Right Hand Exam date and time: 03/24/2025 4:50 PM Age: 79 years old Clinical indication: Pain; Hand; Right; Additional info: RT hand/wrist pain/swelling after multiple falls TECHNIQUE: Imaging protocol: Radiologic exam of the right hand. 4 image(s) are submitted. Views: 3 or more views. COMPARISON: No relevant prior studies available. 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 The lunate bone appear to be small or malrotated, suggesting underlying chronic internal derangement. Mild degenerative osteoarthritis of the 1st metacarpophalangeal joint, interphalangeal joint of the right thumb, proximal and distal interphalangeal joint of the 2nd through 5th finger. Osteopenia. Extensive arterial vascular calcification. Soft tissues: Normal. 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 The lunate bone appear to be small or malrotated, suggesting underlying chronic internal derangement. Mild degenerative osteoarthritis of the 1st metacarpophalangeal joint, interphalangeal joint of the right thumb, proximal and distal interphalangeal joint of the 2nd through 5th finger. Osteopenia. Extensive arterial vascular calcification.
--- NOTE | 2025-03-24 10:10 | XRR_ITS ---
PROCEDURE INFORMATION: Exam: XR Right Wrist Exam date and time: 03/24/2025 5:07 PM Age: 79 years old Clinical indication: Pain; Wrist; Right; Additional info: RT hand/wrist pain/swelling after multiple falls TECHNIQUE: Imaging protocol: Radiologic exam of the right wrist. 4 image(s) are submitted. Views: 3 or more views. 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 The lunate bone appear to be small or malrotated, suggesting underlying chronic internal derangement. Mild degenerative osteoarthritis of the 1st metacarpophalangeal joint, interphalangeal joint of the right thumb. Osteopenia. Extensive arterial vascular calcification. Soft tissues: Normal. 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 The lunate bone appear to be small or malrotated, suggesting underlying chronic internal derangement. Mild degenerative osteoarthritis of the 1st metacarpophalangeal joint, interphalangeal joint of the right thumb. Osteopenia. Extensive arterial vascular calcification.
--- NOTE | 2025-03-24 11:30 | P.PN_ITS ---
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 Patient reports that he uses a walker in his home and a cane outside. He has a sister that comes to help him Wednesday, Wednesday, and Wednesday. Today, he fell for what he thinks was the 3rd or 4th time today. Denies loss of conciousness. Each time he gets up after falling, he feels nauseous and sometimes vomits. He has complaints of sore throat, congestion, and cough. He has not taken anything but otc advil. 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 He reports the facility had asbestos in the pipe construction. Denies alcohol, smoking, or any illicit drug use. In the ED, CBC unremarkable. Glucose 249. NA 133, CL 97. Lactic 2.4 > 2.4. Troponin 40 > 39.62. BNP 941. COVID positive. CT head; no acute intercranial abnormalities or fracture, see full results. CXR; cardiomegaly and atherosclerosis. Will admit to the hospitalist service for further evaluation and treatment. 03/21/25: At time of interview patient i s resting with his eyes closed but he was easy to arouse. Pleasant, conversational, and feels like he is improving from yesterday. He reports that he still feels congested with cough and feels like he cannot cough it up. Denies nausea, vomiting, headache, dizziness, or any additional falls. He does have a very hard time getting up and requires two-person assist. Patient and son have voiced that they would like for him to discharge to a intermediate facility where he can receive Exer support. There preference is [facility]. Discussed this with case management and Ruby PACHECO. 03/22/25: Patient lying in bed at the ti me of interview. He had just been with the bedpan. Patient has a wound to his left buttocks that he reports he has put cortisone on for the last 2 weeks. This was assessed with RN and cleaned. Diameter of a baseball, redness, break in the skin with various areas of healing stage I-II. Dressed with Optifoam to both cheeks. Patient overall looks more improved and is only on 0.5 L oxygen nasal cannula. No additional complaints. Plans for discharge to [facility] 03/23/2025. 03/23/25: Patient resting sitting up in bed at time of interview. He reports no complaints. Still requiring oxygen but only on 1-2 L. Will continue to monitor until patient can be discharged to [facility]. He is awaiting an isolation bed that will be ready on 03/26/2025. Case management aware. 03/24/25: Patient resting comfortably in bed. He reports that he has had some wrist pain since prior discharge and is increased significantly over the last night. When asked if he fell on it he could not remember. Will get imaging. Also we hope to get a wound culture with some of the drainage of his buttocks ulcerations. Will start on antibiotics. Patient is expected to discharge in a couple of days to [facility]. Planning for IV antibiotics for now with a switch to oral at discharge. Vitals/I&O/Wt Last Vital Signs Temp 98.2 F 03/26/25 18:36 Pulse 96 03/26/25 18:36 Resp 20 H 03/26/25 18:36 BP 138/79 03/26/25 18:36 Pulse Ox 92 03/26/25 18:36 O2 Del Method Nasal Cannula 03/26/25 03:59 O2 Flow Rate 2 03/25/25 05:50 Weight last 48 hrs Weight 128.3 kg Weight 128.3 kg Physical Exam 2 Const: COMMON NORMALS: patient oriented x3 HENMT: COMMON NORMALS: normocephalic HEAD & SCALP: normocephalic OTHER: Very [place] Chest: CHEST: Yes Symmetrical chest wall rise Resp: EFFORT & INSPECTION: Yes decreased respiratory effort Cardio: OTHER: Irregularly irregular GI: COMMON NORMALS: Soft to palpation, non-tender, No hepatosplenomegaly present and no masses AUSCULTATION: Yes normoactive bowel sounds P ALPATION: Yes Soft to palpation and Yes No hepatosplenomegaly present Extremity: COMMON NORMALS: no clubbing, cyanosis or edema Neuro: COMMON NORMALS: patient oriented x3 Psych: COMMON NORMALS: mental status grossly normal and cooperative Skin: OTHER: Small skin tears, sores in various healing stages likely s/t to falls. 1-2-week old stage I-II pressure ulcer bilateral buttocks most pronounced on left buttocks now CDI and dressed with wound care Data 03/26/25 04:07 03/26/25 04:07 Micro: Microbiology 03/23/25 17:38 Gram Stain - Final Buttock Wound Culture - Preliminary A&P Assessment and plan 1. Falls: Patient uses a walker and a cane at times He reports he has fallen 3-4 times recently, denies confusion or loss of consciousness CT head; no acute intercranial abnormalities or fracture, see full results CXR; cardiomegaly and atherosclerosis Follows precautions PT/OT prior to discharge Bedrest Treating active infection 2. COVID: Without leukocytosis, WBC WNL at 7.74 98% on room air SARS Cov 2 positive CXR; cardiomegaly and atherosclerosis Lactic 2.4, monitor Blood cultures CBC and CMP lab monitoring Tylenol Cardizem drip started in ED Pain management Protonix Remdesivir On Xarelto Admitted to inpatient 3. Heart failure: BNP 941>688 Troponin 40 > 39.62 >32 Furosemide p.o. 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 Atrial fibrillation: Controlled, HR 105 EKG Telemetry monitoring 6. Hypophosphatemia: 2.4 > 3.2 Replace Lab monitoring 7. Pressure ulcer of buttock: Patient reports he has a wound to his buttocks that he is just put cortisone on for the last 1.5-2 weeks Ulcers in various healing stages I-II, on the left more pronounced about the diameter of a baseball Clean, dry, intact, wound care Optifoam applied Nursing wound care Infection prevention Pain management Turning routine PDMP PDMP Reviewed: Not Reviewed Attestations 2 Medical Necessity Statement*: Patient not expected to stay for 2 additional midnights. Patient expected to discharge tomorrow, 03/25/2025. Diagnoses Falls R29.6 COVID U07.1 Heart failure I50.9 Diabetes 1.5, managed as type 2 E13.9 Atrial fibrillation I48.91 Hypophosphatemia E83.39 Pressure ulcer of buttock L89.309
[2025-03-24 11:51] VITALS: BP 120/75; PULSE 94; RESP 23; O2SAT 90
[2025-03-24 16:00] VITALS: BP 145/89; PULSE 102; RESP 22; O2SAT 93
--- NOTE | 2025-03-24 16:50 | PC.NURSE ---
Nurse called lab to find out what to do to collect a wound culture on this patient. Edelmira in lab did not know the answer so she transferred me to Taye who did not answer the phone. Nurse will try and find out the answer.
[2025-03-24] MEDS: remdesivir 100 MG in sodium chloride 0.9% (100 ml) 80 ML IV (17:12)
[2025-03-24] MEDS: pantoprazole 40 mg SDV IVP (17:13)
[2025-03-24] MEDS: lactobacillus 1 Tablet 1 TAB PO (17:22)
[2025-03-24 20:32] VITALS: BP 148/84; PULSE 99; RESP 19; TEMP 37.4; O2SAT 93
[2025-03-25] VITALS (9 sets, daily range): BP systolic 117–156; BP diastolic 66–81; PULSE 75–104; RESP 19–25; TEMP 36.4–37.2; O2SAT 91–95
[2025-03-25 03:20] LABS: Hematocrit 35.5 % (37-53); Hemoglobin 11.60 g/dL (11.27-16.99); Mean Corpuscular HGB Conc 32.7 g/dL (30-55); Mean Corpuscular Hemoglobin 29.4 pg (27-33); Mean Corpuscular Volume 89.9 fl (82-101); Nucleated Red Blood Cells % 0 %; Platelet Count 207 10^3/cmm (157-399); Red Blood Count 3.95 10^6/uL (3.85-5.65); White Blood Count 7.12 10^3/uL (3.29-11.43)
[2025-03-25 03:36] LABS: Troponin T (5th) Once 34 ng/L (0-15)
[2025-03-25 03:40] LABS: Alanine Aminotransferase 12 U/L (0-41); Albumin Level 3.3 g/dL (3.5-5.2); Alkaline Phosphatase 80 U/L (40-130); Anion Gap 16.7 (5-19); Aspartate Amino Transferase 17 U/L (0-40); Blood Urea Nitrogen 22 mg/dL (8-23); Calcium 8.5 mg/dL (8.5-10.5); Carbon Dioxide 28 mmol/L (22-29); Chloride 97 mmol/L (98-107); Globulin 3.1 g/dL (1.3-4.6); Glucose 196 mg/dL (65-115); Osmolality Calculated 295 mOsm/kg (285-295); Potassium 3.7 mmol/L (3.5-5.1); Sodium 138 mmol/L (136-145); Total Protein 6.4 g/dL (6.6-8.7)
[2025-03-25] MEDS: lactobacillus 1 Tablet 1 TAB PO ×2 (05:48→17:17)
[2025-03-25] MEDS: dilTIAZem ER (24HR) 300 mg Capsule PO (05:48)
--- NOTE | 2025-03-25 08:19 | PHA.VACGOAL ---
Vancomycin Goal - Goal Vancomycin Goal:: 10-15 mg/L Vancomycin Indication:: SSTI - Therapy Day of therpy:: Day []of [] . Actual body weight (kg): 129.5 kg - Data Labs: WBC 7.12 10^3/uL (3.29-11.43) 03/25/25 02:49 RBC 3.95 10^6/uL (3.85-5.65) 03/25/25 02:49 Hgb 11.60 g/dL (11.27-16.99) 03/25/25 02:49 Hct 35.5 % (37-53) L 03/25/25 02:49 MCV 89.9 fl (82-101) 03/25/25 02:49 MCH 29.4 pg (27-33) 03/25/25 02:49 MCHC 32.7 g/dL (30-55) 03/25/25 02:49 RDW 13.4 % (12.1-15.1) 03/25/25 02:49 Sodium 138 mmol/L (136-145) 03/25/25 02:49 Potassium 3.7 mmol/L (3.5-5.1) 03/25/25 02:49 Chloride 97 mmol/L (98-107) L 03/25/25 02:49 Carbon Dioxide 28 mmol/L (22-29) 03/25/25 02:49 Anion Gap 16.7 (5-19) 03/25/25 02:49 BUN 22 mg/dL (8-23) 03/25/25 02:49 Creatinine 1.0 mg/dL (0.7-1.2) 03/25/25 02:49 GFR Calculation Not Reportable 03/25/25 02:49 Treatment plan:: new consult Regimen:: New start vancomycin for pressure ulcer of buttock. No prior vancomycin history found. Started on maintenance dose of 1250 mg q12h. Vancomycin trough ordered for @2215 tonight 03/25/25.
[2025-03-25] MEDS: morphine 4 mg/mL SDV 1 mL 2 MG IVP (09:47)
--- NOTE | 2025-03-25 11:27 | P.PN_ITS ---
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 Patient reports that he uses a walker in his home and a cane outside. He has a sister that comes to help him Wednesday, Wednesday, and Wednesday. Today, he fell for what he thinks was the 3rd or 4th time today. Denies loss of conciousness. Each time he gets up after falling, he feels nauseous and sometimes vomits. He has complaints of sore throat, congestion, and cough. He has not taken anything but otc advil. 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 He reports the facility had asbestos in the pipe construction. Denies alcohol, smoking, or any illicit drug use. In the ED, CBC unremarkable. Glucose 249. NA 133, CL 97. Lactic 2.4 > 2.4. Troponin 40 > 39.62. BNP 941. COVID positive. CT head; no acute intercranial abnormalities or fracture, see full results. CXR; cardiomegaly and atherosclerosis. Will admit to the hospitalist service for further evaluation and treatment. 03/21/25: At time of interview patient i s resting with his eyes closed but he was easy to arouse. Pleasant, conversational, and feels like he is improving from yesterday. He reports that he still feels congested with cough and feels like he cannot cough it up. Denies nausea, vomiting, headache, dizziness, or any additional falls. He does have a very hard time getting up and requires two-person assist. Patient and son have voiced that they would like for him to discharge to a alf facility where he can receive Exer support. [facility] preference [facility]. Discussed this with case management and Ruby PACHECO. 03/22/25: Patient lying in bed at the ti me of interview. He had just been with the bedpan. Patient has a wound to his left buttocks that he reports he has put cortisone on for the last 2 weeks. This was assessed with RN and cleaned. Diameter of a baseball, redness, break in the skin with various areas of healing stage I-II. Dressed with Optifoam to both cheeks. Patient overall looks more improved and is only on 0.5 L oxygen nasal cannula. No additional complaints. Plans for discharge to [facility] 03/23/2025. 03/23/25: Patient resting sitting up in bed at time of interview. He reports no complaints. Still requiring oxygen but only on 1-2 L. Will continue to monitor until patient can be discharged to [facility]. He is awaiting an isolation bed that will be ready on 03/26/2025. Case management aware. 03/24/25: Patient resting comfortably in bed. He reports that he has had some wrist pain since prior discharge and is increased significantly over the last night. When asked if he fell on it he could not remember. Will get imaging. Also we hope to get a wound culture with some of the drainage of his buttocks ulcerations. Will start on antibiotics. Patient is expected to discharge in a couple of days to [facility]. Planning for IV antibiotics for now with a switch to oral at discharge. 03/25/25: Patient resting and reports th at today he feels much better than when he first was admitted. Cultures are still pending on his wound. We went over his results from hand/wrist x-ray and osteoarthritis. Planning for him is to discharge tomorrow to [facility]. They will have an isolation bed for him. Vitals/I&O/Wt Last Vital Signs Temp 97.6 F 03/25/25 08:00 Pulse 92 03/25/25 15:13 Resp 23 H 03/25/25 15:13 BP 134/77 03/25/25 15:13 Pulse Ox 95 03/25/25 15:13 O2 Del Method Nasal Cannula 03/25/25 05:50 O2 Flow Rate 2 03/25/25 05:50 03/25/25 03/25/25 03/25/25 06:59 14:59 22:59 Intake Total 250 / 1200 490 / 490 Output Total 650 / 1800 900 / 900 Balance -400 / -600 -410 / -410 Weight last 48 hrs Weight 129.5 kg Weight 130.691 kg Weight 130.691 kg Physical Exam 2 Const: COMMON NORMALS: patient oriented x3 HENMT: COMMON NORMALS: normocephalic HEAD & SCALP: normocephalic OTHER: Very [place] Chest: CHEST: Yes Symmetrical chest wall rise Resp: EFFORT & INSPECTION: Yes decreased respiratory effort Cardio: OTHER: Irregularly irregular GI: COMMON NORMALS: Soft to palpation, non-tender, No hepatosplenomegaly present and no masses AUSCULTATION: Yes normoactive bowel sounds P ALPATION: Yes Soft to palpation and Yes No hepatosplenomegaly present Extremity: COMMON NORMALS: no clubbing, cyanosis or edema Neuro: COMMON NORMALS: patient oriented x3 Psych: COMMON NORMALS: mental status grossly normal and cooperative Skin: OTHER: Small skin tears, sores in various healing stages likely s/t to falls. 1-2-week old stage I-II pressure ulcer bilateral buttocks most pronounced on left buttocks now CDI and dressed with wound care Data 03/26/25 04:07 03/26/25 04:07 Micro: Microbiology 03/23/25 17:38 Gram Stain - Final Buttock 03/20/25 13:47 Blood Culture - Final Blood NO GROWTH AFTER 5 DAYS 03/20/25 13:44 Blood Culture - Final Blood NO GROWTH AFTER 5 DAYS A&P Assessment and plan 1. Falls: Patient uses a walker and a cane at times He reports he has fallen 3-4 times recently, denies confusion or loss of consciousness CT head; no acute intercranial abnormalities or fracture, see full results CXR; cardiomegaly and atherosclerosis Follows precautions PT/OT prior to discharge Bedrest Treating active infection?code 03/24: Patient reports increasing pain to his right wrist and cannot remember if he injured it when he fell X4 Right hand and wrist imaging Pain management 2. COVID: Without leukocytosis, WBC WNL at 7.74 98% on room air SARS Cov 2 positive CXR; cardiomegaly and atherosclerosis Lactic 2.4, monitor Blood cultures CBC and CMP lab monitoring Tylenol Cardizem drip started in ED Pain management Protonix Remdesivir On Xarelto Admit to inpatient 3. Heart failure: BNP 941 Troponin 40 > 39.62 Furosemide p.o. daily 40 mg Flomax, urinary catheter placement and management Monitor potassium EKG Telemetry I&O Daily weights Trend troponin 4. Diabetes 1.5, managed as type 2: On home metformin and glipizide, hold Sliding scale 5. Atrial fibrillation: Controlled EKG Telemetry monitoring 6. Hypophosphatemia: 2.4 > 3.2 Replace X 3 days Lab monitoring 7. Pressure ulcer of buttock: Patient reports he has a wound to his buttocks that he is just put cortisone on for the last 1.5-2 weeks Ulcers in various healing stages I-II, on the left more pronounced about the diameter of a baseball Clean, dry, intact, wound care Optifoam applied Nursing wound care Infection prevention Pain management Turning routine Starting antibiotics and probiotic PDMP PDMP Reviewed: Not Reviewed Attestations 2 Medical Necessity Statement*: Patient not expected to stay an additional 2 midnights secondary to placement. Also treating ulcerations and new wrist pain. Planning is to discharge to SNF tomorrow. Diagnoses Falls R29.6 COVID U07.1 Heart failure I50.9 Diabetes 1.5, managed as type 2 E13.9 Atrial fibrillation I48.91 Hypophosphatemia E83.39 Pressure ulcer of buttock L89.309
[2025-03-25] MEDS: pantoprazole 40 mg SDV IVP (17:17)
[2025-03-26] VITALS (11 sets, daily range): BP systolic 117–138; BP diastolic 72–84; PULSE 96–101; RESP 20–25; TEMP 36.7–36.8; O2SAT 89–93
[2025-03-26 04:29] LABS: Hematocrit 35.6 % (37-53); Hemoglobin 11.60 g/dL (11.27-16.99); Mean Corpuscular HGB Conc 32.6 g/dL (30-55); Mean Corpuscular Hemoglobin 29.4 pg (27-33); Mean Corpuscular Volume 90.1 fl (82-101); Nucleated Red Blood Cells % 0 %; Platelet Count 266 10^3/cmm (157-399); Red Blood Count 3.95 10^6/uL (3.85-5.65); White Blood Count 7.26 10^3/uL (3.29-11.43)
[2025-03-26 04:45] LABS: Troponin T (5th) Once 32 ng/L (0-15)
[2025-03-26 04:55] LABS: Alanine Aminotransferase 13 U/L (0-41); Albumin Level 3.3 g/dL (3.5-5.2); Alkaline Phosphatase 86 U/L (40-130); Anion Gap 14.8 (5-19); Aspartate Amino Transferase 20 U/L (0-40); Blood Urea Nitrogen 26 mg/dL (8-23); Calcium 8.6 mg/dL (8.5-10.5); Carbon Dioxide 28 mmol/L (22-29); Chloride 97 mmol/L (98-107); Globulin 2.8 g/dL (1.3-4.6); Glucose 237 mg/dL (65-115); Osmolality Calculated 294 mOsm/kg (285-295); Potassium 3.8 mmol/L (3.5-5.1); Sodium 136 mmol/L (136-145); Total Protein 6.1 g/dL (6.6-8.7)
[2025-03-26] MEDS: dilTIAZem ER (24HR) 300 mg Capsule PO (05:23)
[2025-03-26] MEDS: lactobacillus 1 Tablet 1 TAB PO (05:23)
--- NOTE | 2025-03-26 10:43 | PM.DCS ---
Discharge Providers Date of Admission: 03/20/25 17:46 Date of Discharge: March 26, 2025 Attending Provider at Admission: Jonel Villalba MD Attending Provider at Discharge: NICHOLE Banda, GROUNDSMAN Primary Care Provider: Tayo Kirkland MD Diagnoses at Discharge Discharge Diagnosis 1. Falls: 2. COVID: 3. Chronic diastolic heart failure: 4. Diabetes 1.5, managed as type 2: 5. Longstanding persistent atrial fibrillation: 6. Hypophosphatemia: 7. Pressure ulcer of buttock: Other Information Additional DC diagnoses/information: 1. Falls: Patient uses a walker and a cane at times He reports he has fallen 3-4 times recently, denies confusion or loss of consciousness CT head; no acute intercranial abnormalities or fracture, see full results CXR; cardiomegaly and atherosclerosis Follows precautions PT/OT prior to discharge Bedrest Treating active infection?code 03/24: Patient reports increasing pain and swelling to his right wrist and cannot remember if he injured it when he fell X4 Right hand and wrist imaging negative for acute fracture, osteoarthritis present Pain management 2. COVID: Without leukocytosis, WBC WNL at 7.74 98% on room air SARS Cov 2 positive CXR; cardiomegaly and atherosclerosis Lactic 2.4, monitor Blood cultures CBC and CMP lab monitoring Tylenol Cardizem drip started in ED Pain management Protonix Remdesivir On Xarelto Admitted to inpatient, now discharging to [facility] 3. Heart failure: BNP 941 Troponin 40 > 39.62 Furosemide p.o. daily 40 mg Flomax, urinary catheter placement and management Monitor potassium EKG Telemetry I&O Daily weights Trend troponin 4. Diabetes 1.5, managed as type 2: On home metformin and glipizide, hold A1c Sliding scale 5. Atrial fibrillation: Controlled, HR 105 EKG Telemetry monitoring 6. Hypophosphatemia: 2.4 Replace X 3 days Lab monitoring 7. Pressure ulcer of buttock: Patient reports he has a wound to his buttocks that he is just put cortisone on for the last 1.5-2 weeks Ulcers in various healing stages I-II, on the left more pronounced about the diameter of a baseball Clean, dry, intact, wound care Optifoam applied Nursing wound care Infection prevention Pain management Turning routine Antibiotics switched from vancomycin IV to a 7-day course of clindamycin p.o. at discharge Reason for Visit Reason for Visit: fall x 4 Hospital Course Hospital Course Elia Parnell is a 79 year old male with prior medical history of heart failure, DM 1.5 managed as type II, neuropathic ulcers, falls, tinea pedis, obesity, atrial fibrillation on anticoagulation, and venous insufficiency presenting with complaints of falls. Patient reports that he uses a walker in his home and a cane outside. He has a sister that comes to help him Wednesday, Wednesday, and Wednesday. Today, he fell for what he thinks was the 3rd or 4th time today. Denies loss of conciousness. Each time he gets up after falling, he feels nauseous and sometimes vomits. He has complaints of sore throat, congestion, and cough. He has not taken anything but otc advil. 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 He reports the facility had asbestos in the pipe construction. Denies alcohol, smoking, or any illicit drug use. In the ED, CBC unremarkable. Glucose 249. NA 133, CL 97. Lactic 2.4 > 2.4. Troponin 40 > 39.62. BNP 941. COVID positive. CT head; no acute intercranial abnormalities or fracture, see full results. CXR; cardiomegaly and atherosclerosis. Will admit to the hospitalist service for further evaluation and treatment. 03/21/25: At time of interview patient is resting with his eyes closed but he was easy to arouse. Pleasant, conversational, and feels like he is improving from yesterday. He reports that he still feels congested with cough and feels like he cannot cough it up. Denies nausea, vomiting, headache, dizziness, or any additional falls. He does have a very hard time getting up and requires two-person assist. Patient and son have voiced that they would like for him to discharge to a prison facility where he can receive Exer support. [facility]. Discussed this with case management and Ruby PACHECO. 03/22/25: Patient lying in bed at the time of interview. He had just been with the bedpan. Patient has a wound to his left buttocks that he reports he has put cortisone on for the last 2 weeks. This was assessed with RN and cleaned. Diameter of a baseball, redness, break in the skin with various areas of healing stage I-II. Dressed with Optifoam to both cheeks. Patient overall looks more improved and is only on 0.5 L oxygen nasal cannula. No additional complaints. Plans for discharge to [facility] 03/23/2025. 03/23/25: Patient resting sitting up in bed at time of interview. He reports no complaints. Still requiring oxygen but only on 1-2 L. Will continue to monitor until patient can be discharged to [facility]. He is awaiting an isolation bed that will be ready on 03/26/2025. Case management aware. 03/24/25: Patient resting comfortably in bed. He reports that he has had some wrist pain since prior discharge and is increased significantly over the last night. When asked if he fell on it he could not remember. Will get imaging. Also we hope to get a wound culture with some of the drainage of his buttocks ulcerations. Will start on antibiotics. Patient is expected to discharge in a couple of days to [facility]. Planning for IV antibiotics for now with a switch to oral at discharge. 03/25/25: Patient resting and reports that today he feels much better than when he first was admitted. Cultures are still pending on his wound. We went over his results from hand/wrist x-ray and osteoarthritis. Planning for him is to discharge tomorrow to [facility]. They will have an isolation bed for him. 03/26/25: Patient in bed comfortably at time of interview. In good spirits. He is hemodynamically stable and still requiring oxygen secondary to acute respiratory dysfunction in the setting of COVID. He was educated on his right hand/wrist osteoarthritis and to follow-up with PCP outpatient. He is being discharged to [facility]. He is being discharged to home on antibiotics secondary to soft tissue wound/infection to buttocks. Instruction to keep this area clean, dry, protected. Resume home medications. Physical Exam Const: COMMON NORMALS: patient oriented x3 HENMT: COMMON NORMALS: normocephalic HEAD & SCALP: normocephalic OTHER: Very [place] Chest: CHEST: Yes Symmetrical chest wall rise Resp: EFFORT & INSPECTION: Yes decreased respiratory effort Cardio: OTHER: Irregularly irregular GI: COMMON NORMALS: Soft to palpation, non-tender, No hepatosplenomegaly present and no masses AUSCULTATION: Yes normoactive bowel sounds PALPATION: Yes Soft to palpation and Yes No hepatosplenomegaly present Extremity: COMMON NORMALS: no clubbing, cyanosis or edema Neuro: COMMON NORMALS: patient oriented x3 Psych: COMMON NORMALS: mental status grossly normal and cooperative Skin: OTHER: Small skin tears, sores in various healing stages likely s/t to falls. 1-2-week old stage I-II pressure ulcer bilateral buttocks most pronounced on left buttocks now CDI and dressed with wound care Urinary Catheter Management: Fine: Cath Placed During This Visit: yes Reason for Continuing Indwelling Catheter: Accurate Measurement of Urinary Output in Critically Ill Patients Urinary Catheter Date of Insertion: 03/20/25 Urinary Catheter Time of Insertion: 18:00 Discharge Data Studies Completed and Pending Completed Studies During Hospitalization Category Date Time Status CT head wo con* [id number] Stat Cat Scan 03/20/25 13:30 Completed XR chest 1V portable [id number] Stat Exams 03/20/25 13:29 Completed XR hand RT min 3V* [id number] Routine Exams 03/24/25 10:10 Completed XR wrist right with navicular [XR wrist RT w scaphoid Exams 03/24/25 10:10 Completed [id number]] Routine Pending at discharge Category Date Time Status Wound Culture and Gram Stain Routine Lab 03/23/25 17:38 Results Radiology Impressions Chest X-Ray 03/20/25 13:29 Impression: Cardiomegaly and atherosclerosis. Head CT 03/20/25 13:30 IMPRESSION: 1. No acute intracranial hemorrhage or edema. 2. Moderate cerebral atrophy and small vessel changes. 3. No skull fracture. 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 The lunate bone appear to be small or malrotated, suggesting underlying chronic internal derangement. Mild degenerative osteoarthritis of the 1st metacarpophalangeal joint, interphalangeal joint of the right thumb, proximal and distal interphalangeal joint of the 2nd through 5th finger. Osteopenia. Extensive arterial vascular calcification. 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 The lunate bone appear to be small or malrotated, suggesting underlying chronic internal derangement. Mild degenerative osteoarthritis of the 1st metacarpophalangeal joint, interphalangeal joint of the right thumb. Osteopenia. Extensive arterial vascular calcification. Laboratory Results WBC 7.26 10^3/uL (3.29-11.43) 03/26/25 04:07 RBC 3.95 10^6/uL (3.85-5.65) 03/26/25 04:07 Hgb 11.60 g/dL (11.27-16.99) 03/26/25 04:07 Hct 35.6 % (37-53) L 03/26/25 04:07 MCV 90.1 fl (82-101) 03/26/25 04:07 MCH 29.4 pg (27-33) 03/26/25 04:07 MCHC 32.6 g/dL (30-55) 03/26/25 04:07 RDW 13.4 % (12.1-15.1) 03/26/25 04:07 Plt Count 266 10^3/cmm (157-399) 03/26/25 04:07 MPV 10.0 fL (7.4-10.4) 03/26/25 04:07 Neut % (Auto) 68.6 % 03/26/25 04:07 Lymph % (Auto) 17.6 % 03/26/25 04:07 [place] % (Auto) 10.5 % 03/26/25 04:07 Eos % (Auto) 2.3 % 03/26/25 04:07 Baso % (Auto) 0.6 % 03/26/25 04:07 Neut # (Auto) 4.98 10^3/uL (1.8-7.7) 03/26/25 04:07 Lymph # (Auto) 1.3 10^3/uL (0.8-4.8) 03/26/25 04:07 [place] # (Auto) 0.8 10^3/uL (0.2-0.9) 03/26/25 04:07 Eos # (Auto) 0.2 10^3/uL (0.0-0.8) 03/26/25 04:07 Baso # (Auto) 0.0 10^3/uL (0.0-0.1) 03/26/25 04:07 Nucleated RBC % (auto) 0 % 03/26/25 04:07 Nucleated RBCs # 0.0 /100WBC 03/26/25 04:07 Sodium 136 mmol/L (136-145) 03/26/25 04:07 Potassium 3.8 mmol/L (3.5-5.1) 03/26/25 04:07 Chloride 97 mmol/L (98-107) L 03/26/25 04:07 Carbon Dioxide 28 mmol/L (22-29) 03/26/25 04:07 Anion Gap 14.8 (5-19) 03/26/25 04:07 BUN 26 mg/dL (8-23) H 03/26/25 04:07 Creatinine 0.9 mg/dL (0.7-1.2) 03/26/25 04:07 GFR Calculation Not Reportable 03/26/25 04:07 Glucose 237 mg/dL (65-115) H 03/26/25 04:07 POC Glucose 286 mg/dL (70-110) H 03/26/25 06:20 Calculated Osmolality 294 mOsm/kg (285-295) 03/26/25 04:07 Lactic Acid 2.2 mmol/L (0.5-2.2) 03/21/25 14:53 Lactic Acid (Sepsis) 2.5 mmol/L (0.5-2.2) H 03/21/25 17:37 Lactate 1.7 mmol/L (0.5-2.2) 03/22/25 08:35 Calcium 8.6 mg/dL (8.5-10.5) 03/26/25 04:07 Phosphorus 3.2 mg/dL (2.5-4.5) 03/24/25 02:13 Magnesium 2.1 mg/dL (1.7-2.3) 03/24/25 02:13 Total Bilirubin 1.2 mg/dL (0.15-1.2) 03/26/25 04:07 AST 20 U/L (0-40) 03/26/25 04:07 ALT 13 U/L (0-41) 03/26/25 04:07 Alkaline Phosphatase 86 U/L (40-130) 03/26/25 04:07 Troponin T 5th Gen ng/L 32 ng/L (0-15) H 03/26/25 04:07 Troponin T Baseline 40 ng/L (0-15) H 03/20/25 13:44 Troponin T 60 Minute 39.62 ng/L (0-15) H 03/20/25 14:30 Delta Troponin T -0.38 ABS# (0-10) L 03/20/25 14:30 Troponin T Hi Sens 6Hr 48.70 ng/L (0-15) H 03/20/25 19:53 Troponin T Hi Sens 6Hr Delta 8.70 ng/L (0-12) 03/20/25 19:53 C-Reactive Protein 3.0 mg/L (0.0-4.9) 03/22/25 08:35 C-React Prot High Sens 5.320 mg/dL (0.0-0.3) H 03/20/25 13:44 NT-Pro-B Natriuret Pep 688 pg/mL (0-450) H 03/21/25 14:53 Total Protein 6.1 g/dL (6.6-8.7) L 03/26/25 04:07 Albumin 3.3 g/dL (3.5-5.2) L 03/26/25 04:07 Globulin 2.8 g/dL (1.3-4.6) 03/26/25 04:07 Procalcitonin 0.18 ng/mL (0-0.5) 03/20/25 13:44 TSH 3.15 uIU/mL (0.27-4.20) 03/20/25 13:44 Urine Color Yellow (Yellow) 03/20/25 15:10 Urine Appearance Slightly cloudy (CLEAR) 03/20/25 15:10 Urine pH Not Reportable 03/20/25 15:10 Ur Specific [place] Not Reportable 03/20/25 15:10 Urine Protein Not Reportable 03/20/25 15:10 Urine Glucose (UA) Not Reportable 03/20/25 15:10 Urine Ketones Not Reportable 03/20/25 15:10 Urine Blood Not Reportable 03/20/25 15:10 Urine Nitrate Not Reportable 03/20/25 15:10 Urine Bilirubin Not Reportable 03/20/25 15:10 Urine Urobilinogen Not Reportable 03/20/25 15:10 Ur Leukocyte Esterase Not Reportable 03/20/25 15:10 Urine RBC None /hpf (0-2) 03/20/25 15:10 Urine WBC Rare /hpf (0-5) 03/20/25 15:10 Ur Squamous Epith Cells None /hpf (0-5) 03/20/25 15:10 Amorphous Sediment Not Reportable 03/20/25 15:10 Urine Bacteria Trace /hpf (NONE) 03/20/25 15:10 Vancomycin Trough 13.3 ug/mL (10-15) 03/25/25 22:33 Influenza A (PCR) Negative (Negative) 03/20/25 14:14 Influenza Type B (PCR) Negative (Negative) 03/20/25 14:14 RSV (PCR) Negative (Negative) 03/20/25 14:14 SARS-CoV-2 (PCR) Positive (Negative) A 03/20/25 14:14 Vitals Last Vital Signs Temp 98.2 F 03/26/25 07:23 Pulse 98 03/26/25 07:23 Resp 23 H 03/26/25 07:23 BP 120/80 03/26/25 07:23 Pulse Ox 90 03/26/25 07:23 O2 Del Method Nasal Cannula 03/26/25 03:59 O2 Flow Rate 2 03/25/25 05:50 Discharge Plan Discharge Patient Disposition: Home Condition: Stable Prescriptions: New clindamycin HCl [Cleocin HCl] 300 mg capsule 300 mg PO Q12H 7 Days Qty: 14 0RF Continued (DME) Accu-Chek Rocio Plus test strp Strip See Rx Instructions .Route Qty: 100 3RF Rx Instructions: to use in accu-chek meter once daily 90 day supply (DME) blood-glucose meter [Accu-Chek Rocio Plus Meter] [facility] See Rx Instructions .Route Qty: 1 0RF Rx Instructions: to use to check blood sugar once daily (DME) diabetic shoes See Rx Instructions .Route .MEDSUPPLY Qty: 1 0RF Rx Instructions: As directed (DME) diabetic shoes with 3 inserts See Rx Instructions .Route .MEDSUPPLY Qty: 1 0RF Rx Instructions: As directed to the shoe gupeña furosemide 40 mg tablet 40 mg PO DAILY 60 Days Qty: 60 3RF Rx Instructions: for swelling in legs and scrotum glipizide 2.5 mg tablet extended release 24hr See Rx Instructions .ROUTE .COMPLEX Qty: 180 2RF Dose Instruction: TAKE ONE TABLET BY MOUTH TWICE DAILY *no longer need TO split due TO LOWER strength* Rx Instructions: TAKE ONE TABLET BY MOUTH TWICE DAILY diltiazem HCl 300 mg capsule,extended release 24hr See Rx Instructions .ROUTE .COMPLEX Qty: 90 3RF Dose Instruction: TAKE ONE CAPSULE BY MOUTH DAILY Rx Instructions: TAKE ONE CAPSULE BY MOUTH DAILY docusate sodium 100 mg capsule See Rx Instructions .ROUTE .COMPLEX Qty: 180 2RF Dose Instruction: TAKE ONE CAPSULE BY MOUTH TWICE DAILY Rx Instructions: TAKE ONE CAPSULE BY MOUTH TWICE DAILY metformin 500 mg tablet See Rx Instructions .ROUTE .COMPLEX Qty: 180 3RF Dose Instruction: TAKE ONE TABLET BY MOUTH TWICE DAILY Rx Instructions: TAKE ONE TABLET BY MOUTH TWICE DAILY Xarelto 20 mg tablet See Rx Instructions .ROUTE .COMPLEX Qty: 90 3RF Dose Instruction: TAKE ONE TABLET BY MOUTH DAILY Rx Instructions: TAKE ONE TABLET BY MOUTH DAILY clotrimazole-betamethasone 1-0.05 % cream 1 applic topical BID Qty: 45 2RF tamsulosin 0.4 mg capsule See Rx Instructions .ROUTE .COMPLEX Qty: 90 3RF Dose Instruction: TAKE ONE CAPSULE BY MOUTH DAILY FOR help with urination/prostate Rx Instructions: TAKE ONE CAPSULE BY MOUTH DAILY FOR help with urination/prostate potassium chloride 10 mEq tablet extended release See Rx Instructions .ROUTE .COMPLEX Qty: 180 1RF Dose Instruction: TAKE ONE TABLET BY MOUTH TWICE DAILY Rx Instructions: TAKE ONE TABLET BY MOUTH TWICE DAILY Discharge Order = DC NOW: Discharge Order (Routine); Ordered 03/26/25 Ordered By: Brenna Carpenter Referrals: Tayo Kirkland MD [Primary Care Provider, Family Practice] - 2 weeks Discharge Activity: Increase activity as tolerated, As per PT/OT instructions and Oxygen as instructed Patient Instructions: Heart Failure (DC), A-fib (Atrial Fibrillation) (DC), Fall Prevention (DC), COVID-19 (Coronavirus Disease 2019) (DC), Opioid Safety, Patient Portal & Donato Instructions Activity Restrictions/Additional Instructions: Resume keeping buttocks wounds clean. Advance activity as tolerated. Please return to nearest Emergency Department if symptoms return/worsen. Discharge Attestations Time Spent in Discharge Care*: greater than 30 min Quality Metrics Clinical Quality Measures [ No reported AMI, CVA or VTE this stay] Coding Level of Care Code 40961 Diagnoses Falls R29.6 COVID U07.1 Chronic diastolic heart failure I50.32 Heart failure chronicity: chronic Heart failure type: diastolic Diabetes 1.5, managed as type 2 E13.9 Longstanding persistent atrial fibrillation I48.11 Atrial fibrillation type: longstanding persistent Hypophosphatemia E83.39 Pressure ulcer of buttock L89.309
--- NOTE | 2025-03-26 17:08 | PC.OT ---
OT TREATMENT HELD TODAY DUE TO SCHEDULED PATIENT D/C TODAY
== END 2025-03-26 18:38 | disposition home or self-care (01) | DRG 178 ==
LOC: ER 16:16 → ICU 17:47 → CSU 03-21 18:04
PROVIDERS: Emergency Medicine; Admitting Provider Student in an Organized Health Care Education/Training Program; Emergency Provider Family Medicine; PCP Family Medicine; Visit Provider Clinical Nurse Specialist Acute Care
DX: U07.1 COVID-19 (principal); I48.11 Longstanding persistent atrial fibrillation; I50.32 Chronic diastolic (congestive) heart failure; R29.6 Repeated falls; E13.9 Other specified diabetes mellitus without complications; E83.39 Other disorders of phosphorus metabolism; Z79.84 Long term (current) use of oral hypoglycemic drugs; Z83.3 Family history of diabetes mellitus; Z82.49 Family history of ischemic heart disease and other diseases of the circulatory system; E66.9 Obesity, unspecified; Z68.38 Body mass index [BMI] 38.0-38.9, adult; Z79.01 Long term (current) use of anticoagulants; L89.322 Pressure ulcer of left buttock, stage 2; Z99.81 Dependence on supplemental oxygen; M19.041 Primary osteoarthritis, right hand
CPT/HCPCS: 36415; 36416; 51702; 70450; 71045; 73110; 73130; 80048; 80053; 80202; 81001; 82962; 83605; 83735; 83880; 84100; 84145; 84443; 84484; 85025; 86140; 86141; 87040; 87070; 87075; 87077; 87186; 87205; 87637; 93005; 96365; 96366; 96367; 96372; 96375; 97110; 97162; 97165; 97530; 99285; J0248; J1815; J2270; J2470; J3373; J3490; J7030; J9999